=== PATIENT | male | born 1955 | race Caucasian/White ===

== ENCOUNTER 2019-12-01 08:09 | Inpatient (IN) ==
[2019-12-01] MEDS ORDERED: PANTOPRAZOLE 40 MG VIAL IV ONE (08:41)
[2019-12-01] MEDS ORDERED: INSULIN GLARGINE, HUMAN 1 UNIT/0.01 ML SQ ONE ×2 (08:42→09:31)
[2019-12-01] MEDS ORDERED: 0.9 % SODIUM CHLORIDE 500 ML IV ONE ×2 (08:42→12:17)
[2019-12-01] MEDS ORDERED: INSULIN REGULAR, HUMAN 1 UNIT/0.01 ML UNIT SQ ONE (08:42)
[2019-12-01] MEDS ORDERED: PANTOPRAZOLE 80 MG in 0.9 % SODIUM CHLORIDE 100 ML IV SCH (08:45)
--- NOTE | 2019-12-01 08:47 | Emergency Department Note ---
Weakness HPI - General Chief complaint: Weakness Stated complaint: weakness Time Seen by Provider: 12/01/19 08:27 Source: patient, EMS Mode of arrival: EMS Limitations: no limitations - History of Present Illness HPI Narrative: Patient reports generalized weakness, which has been progressive over the last week. Also, he has noticed dark stools the last 2 days which were liquid He does have a history of stomach ulcers treated with cauterization several years ago. 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 His home, mostly with caregivers and family members. History of morbid obesity, history of diabetes. This morning his blood sugar was over 400 in triage. He did not take his a.m. insulin just yet. Denies urinary symptoms, denies flank pain, denies nausea or vomiting. No fevers or chills, but generalized weakness, which has been getting worse the last few days - Related Data Previous Rx's Medication Instructions Recorded Doxycycline Hyclate 100 mg PO BID #20 cap 12/29/17 Fluconazole [Diflucan] 200 mg PO DAILY #14 tab 12/29/17 Methocarbamol [Robaxin] 750 mg PO TIDP PRN #20 tab 12/29/17 Cephalexin [Keflex] 500 mg PO QID #12 cap 12/07/18 HYDROcodone/APAP 5/325MG [[place] 1 tab PO Q4HP PRN #10 tab 12/07/18 5-325Mg] Allergies Allergy/AdvReac Type Severity Reaction Status Date / Time No Known Drug Allergies Allergy Verified 12/07/18 18:40 Review of Systems Constitutional: Reports: weakness, sweats Cardiovascular: Reports: palpitations, dyspnea on exertion. Denies: chest pain Respiratory: Reports: shortness of breath. Denies: cough Gastrointestinal: Reports: diarrhea. Denies: nausea, vomiting, hematemesis Genitourinary: Denies: dysuria Musculoskeletal: Reports: back pain Integumentary: Reports: rash, other (odorous rash underneath his pannus, lower abdomen) Neurological: Reports: weakness. Denies: headache Past Medical History - Past Medical History [facility] Narrative: History of Kkypffe-Qjntd-Smquk. History of diabetes, history of morbid obesity. Status post right BKA Source: nursing notes reviewed Medical history: Reports: DM, hypothyroidism, obesity, peripheral artery disease, other (BPH, Izcuwho-Fxujw-Aefyh, right below-knee amputation) Surgical history ED: Reports: cholecystectomy, orthopedic, other, other (status post BKA right leg) Family history: Reports: non-contributory - Social History smoking status: Never smoker Alcohol use: Reports: None Drug use: Reports: none Physical Exam Limitations: no limitations General appearance: alert, in no apparent distress, malaise Head: atraumatic, normocephalic, normal inspection Eye: Present: normal appearance, PERRL, EOMI. Absent: conjunctival injection ENT: Present: normal exam, normal oropharynx, mucous membranes moist, normal external ear exam Neck: Present: normal inspection, full ROM, trachea midline. Absent: tenderness Chest: Present: normal inspection, symmetric chest wall rise. Absent: tenderness Respiratory: Present: normal lung sounds bilaterally. Absent: respiratory distress, rales/crackles, wheezes Cardiovascular: Present: regular rate, tachycardia, normal heart sounds Abdominal: Present: soft, tenderness, hypoactive bowel sounds. Absent: guarding , rebound Abdominal tenderness: Present: RLQ, mild Rectal: Present: decreased rectal tone, heme (+) stool, black stool. Absent: mass : Present: normal inspection, normal testicular lie. Absent: testicular tenderness, scrotal swelling Extremities: Present: other (atrophy of hand muscles, Charcot foot, left-sided. In prosthetic device. The. Status post BKA on the right leg) Back: Absent: CVA tenderness (R), CVA tenderness (L) Neurological: Present: alert, oriented X3, CN II-XII intact, motor sensory deficit, other (decreased sensation from the waist on down both sides) Psychiatric: Present: normal affect Skin: Present: warm, dry, normal color, rash, other (erythematous rash below his pannus) Course - Reevaluation(s) Reevaluation #1: Patient signed out to Dr. Hill. 9 AM. Initial labs ordered. Physical exam documented. Disposition is pending laboratory evaluation. Vital Signs Temperature 98.0 F 12/01/19 08:13 Pulse Rate 118 H 12/01/19 08:13 Respiratory Rate 16 12/01/19 08:13 Blood Pressure 110/77 12/01/19 08:13 Pulse Oximetry (%) 96 12/01/19 08:13 Temperature 98.0 F 12/01/19 08:13 Pulse Rate 118 H 12/01/19 08:13 Respiratory Rate 16 12/01/19 08:13 Blood Pressure 110/77 12/01/19 08:13 Pulse Oximetry (%) 96 12/01/19 08:13 Weakness - MDM Narrative Medical decision making narrative: GI bleed - Lab Data Lab results reviewed: Yes I reviewed the patient's lab results. Result diagrams: 12/01/19 08:25 12/01/19 08:25 Disposition Pt seen by FUNERAL LIMOUSINE DRIVER/PA only: No Clinical Impression: GI bleed Disposition: Still a Patient Condition: Fair Referrals: Srinivasa Wagner, BUS DRIVER/MONITOR [Primary Care Provider] -
[2019-12-01] MEDS ORDERED: 0.9 % SODIUM CHLORIDE 250 ML IV SCH (09:00)
[2019-12-01] MEDS ORDERED: FLUCONAZOLE 200 MG/100 ML BAG IV SCH (09:00)
[2019-12-01 09:17] LABS: ABG Methemoglobin 0.1 % (0.4-1.5); Total Hemoglobin 10.8 gm/dL (13.5-16.5); VBG Base Excess -6.1 (-2.0-2.0); VBG HCO3 18.4 mmol/L (24.0-28.0); VBG Oxygen Saturation 93.5 % (40.0-70.0); VBG PCO2 33.1 mmHg (41.0-51.0); VBG PH 7.36 U (7.32-7.42); VBG PO2 97 mmHg (25-40); VBG Total CO2 19.5 mmol/L (25.0-29.0)
[2019-12-01 09:25] LABS: Basophils # (Auto) 0.05 K/mcL (0.00-0.30); Basophils % (Auto) 0.3 % (0.0-2.0); Eosinophils # (Auto) 0.03 K/mcL (0.00-0.70); Eosinophils % (Auto) 0.2 % (0.0-7.0); Granulocytes % (Auto) 89.1 % (38.0-78.0); Hematocrit 31.4 % (40.1-51.0); Hemoglobin 10.6 g/dL (13.7-17.5); Lymphocytes # (Auto) 0.68 K/mcL (1.50-4.80); Lymphocytes % (Auto) 4.3 % (15.5-49.0); Mean Corpuscular HGB Conc 33.8 g/dL (31.0-36.0); Mean Platelet Volume 11.5 fL (7.4-10.4); Monocytes # (Auto) 0.97 K/mcL (0.10-0.90); Monocytes % (Auto) 6.1 % (1.0-12.0); Platelet Count 267 K/mcL (140-440); RBC 3.34 M/mcL (4.63-6.08); WBC 15.9 K/mcL (4.50-11.00)
--- NOTE | 2019-12-01 09:37 | Emergency Department Note ---
General Adult HPI - General Chief complaint: Weakness Stated complaint: weakness Time Seen by Provider: 12/01/19 08:27 Source: patient, EMS Mode of arrival: EMS Limitations: no limitations - History of Present Illness HPI Narrative: Patient reports generalized weakness, which has been progressive over the last week. Also, he has noticed dark stools the last 2 days which were liquid He does have a history of stomach ulcers treated with cauterization several years ago. 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 Medication history was assessed for possible NSAIDs, agents that cause pill esophagitis, antiplatelet and anticoagulant medication as well as bismuth and iron, patient is not taking these medications, generally speaking patient is poorly compliant with medications. Patient with onset of symptoms days ago. Assessed the patient for symptoms of orthostatic hypotension, confusion, angina, palpitations, cold clammy extremities, dysphagia, early satiety, involuntary weight loss, jaundice, vomiting, and GERD. Patient did not have history of alcohol use. - Related Data Home Medications Medication Instructions Recorded Confirmed Dulaglutide [Trulicity] 0.75 mg SC WEEKLY 12/01/19 12/01/19 Famotidine [Pepcid] 20 mg PO BID 12/01/19 12/01/19 Gabapentin [Gralise] 600 mg PO TID 12/01/19 12/01/19 HYDROcodone/APAP 5/325MG [[place] 1 tab PO Q4HP PRN 12/01/19 12/01/19 5-325Mg] Insulin Detemir [Levemir] 25 unit SQ QAM 12/01/19 12/01/19 Levothyroxine [Synthroid] 125 mcg PO DAILY 12/01/19 12/01/19 Metoprolol Tartrate [Lopressor] 25 mg PO BID 12/01/19 12/01/19 Miconazole TOPICAL PRN 12/01/19 12/01/19 Ondansetron HCl [Zofran] 4 mg PO TID PRN 12/01/19 12/01/19 Potassium Chloride [Kdur] 20 meq PO BIDCC 12/01/19 12/01/19 Pregabalin [Lyrica] 25 mg PO TID 12/01/19 12/01/19 Saccharomyces Boulardii [Florastor] 250 mg PO BID 12/01/19 12/01/19 Tamsulosin [Flomax] 1 cap PO DAILY 12/01/19 12/01/19 metFORMIN [Glucophage] 1,000 mg PO BIDCC 12/01/19 12/01/19 morphine SULFATE [Morphine Sulfate 30 mg PO TID 12/01/19 12/01/19 ER] prednisoLONE [Millipred] 7.5 mg PO DAILY 12/01/19 12/01/19 traMADol [Ultram] 1 tab PO QID PRN 12/01/19 12/01/19 Allergies Allergy/AdvReac Type Severity Reaction Status Date / Time No Known Drug Allergies Allergy Verified 12/07/18 18:40 Review of Systems All systems ED: reviewed and negative except as stated. Constitutional: Reports: weakness, sweats Cardiovascular: Reports: palpitations, dyspnea on exertion. Denies: chest pain Respiratory: Reports: shortness of breath. Denies: cough Gastrointestinal: Reports: diarrhea. Denies: nausea, vomiting, hematemesis Genitourinary: Denies: dysuria Musculoskeletal: Reports: back pain Integumentary: Reports: rash, other (odorous rash underneath his pannus, lower abdomen) Neurological: Reports: weakness. Denies: headache Past Medical History - Past Medical History [facility] Narrative: All Active Problems Strain of lumbar region (Acute) Skin ulcer of buttock with fat layer exposed (Acute) Candidiasis of other urogenital sites (Acute) Urinary tract infection (Acute) GI bleed (Acute) Medical history: Reports: DM, hypothyroidism, obesity, peripheral artery disease, other (BPH, Vxgrrjh-Gihup-Ruycm, right below-knee amputation) Surgical history ED: Reports: cholecystectomy, orthopedic, other, other (status post BKA right leg) - Social History smoking status: Never smoker Alcohol use: Reports: None Drug use: Reports: none Physical Exam General: Alert, interactive, appropriate Head: Atraumatic, normocephalic Eyes: Extraocular movements intact, PERRLA Neck: Trachea midline, full range of motion Chest: Symmetrical chest wall rise, clear to auscultation bilateral without wheezes rales crackles or rubs Cardiovascular: Patient with excellent perfusion to the extremities, tachycardic with rate at the 110's without M/R/G; patient assessed for evidence of hypotension patient is not in shock Abdomen: Nontender nondistended normoactive bowel sounds no masses no hepatosplenomegaly no rebound no guarding, patient assessed specifically for peritoneal findings, fungus under the pannus extensive Extremities: Full range of motion joints, warm well perfused Neuro: Alert, oriented x3, cranial nerves II through XII grossly intact, normal gait Psychiatric: Normal affect normal mood Limitations: no limitations General appearance: alert, in no apparent distress, malaise Course Vital Signs Temperature 98.0 F 12/01/19 08:13 Pulse Rate 118 H 12/01/19 08:13 Respiratory Rate 16 12/01/19 08:13 Blood Pressure 110/77 12/01/19 08:13 Pulse Oximetry (%) 96 12/01/19 08:13 Temperature 98.0 F 12/01/19 08:13 Pulse Rate 106 H 12/01/19 15:44 Respiratory Rate 20 12/01/19 17:01 Blood Pressure 103/52 12/01/19 17:01 Pulse Oximetry (%) 95 12/01/19 16:01 Medical Decision Making - MDM Narrative Medical decision making narrative: Initial focus of the resuscitation was to determine hemodynamic stability. Risk stratifying the patient into the category of acutely unstable GI bleed, stable for admission and endoscopy, and stable for discharge with close follow-up. IV access was obtained, fluid resuscitation begun. Patient given Protonix 80 mg IV and started on Protonix drip by the previous provider Dr. Romero. Considered antibiotics and octreotide in the case of variceal bleeding, consider reversal of anticoagulation in the case of patients on anticoagulants/antiplatelets, also considering transfusion for hemoglobin less than or equal to 7 or less than or equal to 9 in high risk patients; caution applied to avoid over transfusion >10 in the case of variceal bleeding. Differential diagnosis considered includes gastric/duodenal ulcers, erosive gastritis/duodenitis, severe erosive esophagitis, variceal bleed, angiodysplasia, Farzana-Lr tear, oncologic etiologies, aortoenteric fistula. During evaluation for the work-up it is noted that we were able to get control of his blood sugar with insulin, also given 2 L of fluids and continuous infusion of fluids, patient with UA suggesting urinary tract infection, patient with elevated lactate, elevated white blood cell count, and tachycardia lehman ggestive of sepsis with a urinary source. Patient is treated with Rocephin and I discussed the case with Dr. Tucker and the consensus medical opinion is to admit the patient for ongoing care. - Lab Data Result diagrams: 12/01/19 08:25 12/01/19 08:25 Lab Results 12/01/19 12/01/19 12/01/19 Range/Units 08:25 08:25 08:25 WBC 15.9 H (4.50-11.00) K/mcL RBC 3.34 L (4.63-6.08) M/mcL Hgb 10.6 L (13.7-17.5) g/dL Hct 31.4 L (40.1-51.0) % MCV 94.0 (80.0-100.0) fL MCH 31.7 (26.0-34.0) pg MCHC 33.8 (31.0-36.0) g/dL RDW 15.0 H (11.5-14.5) % Plt Count 267 (140-440) K/mcL MPV 11.5 H (7.4-10.4) fL Gran % 89.1 H (38.0-78.0) % Lymph % (Auto) 4.3 L (15.5-49.0) % [place] % (Auto) 6.1 (1.0-12.0) % Eos % (Auto) 0.2 (0.0-7.0) % Baso % (Auto) 0.3 (0.0-2.0) % Gran # 14.19 H (1.80-8.00) K/mcL Lymph # (Auto) 0.68 L (1.50-4.80) K/mcL [place] # (Auto) 0.97 H (0.10-0.90) K/mcL Eos # (Auto) 0.03 (0.00-0.70) K/mcL Baso # (Auto) 0.05 (0.00-0.30) K/mcL ABG Methemoglobin (0.4-1.5) % VBG pH (7.32-7.42) U VBG pCO2 (41.0-51.0) mmHg VBG pO2 (25-40) mmHg VBG HCO3 (24.0-28.0) mmol/L VBG Total CO2 (25.0-29.0) mmol/L VBG O2 Saturation (40.0-70.0) % VBG Base Excess (-2.0-2.0) VBG Lactic Acid (0.5-2.0) mmol/L Carboxyhemoglobin (0.0-1.5) % THgb Total Hemoglobin (13.5-16.5) gm/dL O2 Delivery Level Sodium 130 L (133-145) mmol/L Potassium 4.7 (3.3-5.1) mmol/L Chloride 91 L (96-108) mmol/L Carbon Dioxide 17 L (22-30) mmol/L Anion Gap 22.0 H (8-16) BUN 34 H (8-23) mg/dl Creatinine 0.7 (0.7-1.2) mg/dl GFR Calculation 100 Glucose 442 H (70-105) mg/dL Osmolality 305 H (280-300) mOSM/kg Calcium 8.4 L (8.6-10.4) mg/dl Total Bilirubin 0.9 (0.0-1.0) mg/dL AST 14 (0-37) U/l ALT 23 (0-40) U/l Alkaline Phosphatase 68 (39-117) U/L C-Reactive Protein 6.4 H (0.0-0.8) mg/dl Total Protein 5.9 (5.9-8.4) gm/dL Albumin 2.9 L (3.2-5.2) gm/dL Globulin 3.0 (2.2-3.7) gm/dL Albumin/Globulin Ratio 1.0 (1.0-2.3) Beta-Hydroxybutyrate (< 0.27) mmol/L Urine Color Urine Appearance Urine pH (5.0-9.0) Ur Specific [place] (1.000-1.035) Urine Protein (NEG) mg/dL Urine Glucose (UA) (NEG) mg/dL Urine Ketones (NEG) mg/dL Urine Occult Blood (<0.03) mg/dL Urine Nitrate (NEG) Urine Bilirubin (NEG) mg/dL Urine Urobilinogen (NEG) mg/dL Ur Leukocyte Esterase (NEG) /uL Urine RBC (0-1) /hpf Urine WBC (0-4) /hpf Ur Squamous Epith Cells (0-4) /hpf Urine Bacteria (0) /hpf Urine Mucus (0) /hpf Ur Culture Indicated? 12/01/19 12/01/19 12/01/19 Range/Units 08:25 08:25 08:40 WBC (4.50-11.00) K/mcL RBC (4.63-6.08) M/mcL Hgb (13.7-17.5) g/dL Hct (40.1-51.0) % MCV (80.0-100.0) fL MCH (26.0-34.0) pg MCHC (31.0-36.0) g/dL RDW (11.5-14.5) % Plt Count (140-440) K/mcL MPV (7.4-10.4) fL Gran % (38.0-78.0) % Lymph % (Auto) (15.5-49.0) % [place] % (Auto) (1.0-12.0) % Eos % (Auto) (0.0-7.0) % Baso % (Auto) (0.0-2.0) % Gran # (1.80-8.00) K/mcL Lymph # (Auto) (1.50-4.80) K/mcL [place] # (Auto) (0.10-0.90) K/mcL Eos # (Auto) (0.00-0.70) K/mcL Baso # (Auto) (0.00-0.30) K/mcL ABG Methemoglobin 0.1 L (0.4-1.5) % VBG pH 7.36 (7.32-7.42) U VBG pCO2 33.1 L (41.0-51.0) mmHg VBG pO2 97 H (25-40) mmHg VBG HCO3 18.4 L (24.0-28.0) mmol/L VBG Total CO2 19.5 L (25.0-29.0) mmol/L VBG O2 Saturation 93.5 H (40.0-70.0) % VBG Base Excess -6.1 L (-2.0-2.0) VBG Lactic Acid (0.5-2.0) mmol/L Carboxyhemoglobin 4.1 H (0.0-1.5) % THgb Total Hemoglobin 10.8 L (13.5-16.5) gm/dL O2 Delivery Level Not Reportable Sodium (133-145) mmol/L Potassium (3.3-5.1) mmol/L Chloride (96-108) mmol/L Carbon Dioxide (22-30) mmol/L Anion Gap (8-16) BUN (8-23) mg/dl Creatinine (0.7-1.2) mg/dl GFR Calculation Glucose (70-105) mg/dL Osmolality (280-300) mOSM/kg Calcium (8.6-10.4) mg/dl Total Bilirubin (0.0-1.0) mg/dL AST (0-37) U/l ALT (0-40) U/l Alkaline Phosphatase (39-117) U/L C-Reactive Protein (0.0-0.8) mg/dl Total Protein (5.9-8.4) gm/dL Albumin (3.2-5.2) gm/dL Globulin (2.2-3.7) gm/dL Albumin/Globulin Ratio (1.0-2.3) Beta-Hydroxybutyrate 3.43 H (< 0.27) mmol/L Urine Color Straw Urine Appearance Clear Urine pH 5.0 (5.0-9.0) Ur Specific [place] 1.025 (1.000-1.035) Urine Protein Neg (NEG) mg/dL Urine Glucose (UA) >=500 A (NEG) mg/dL Urine Ketones 80 A (NEG) mg/dL Urine Occult Blood 0.03 A (<0.03) mg/dL Urine Nitrate Neg (NEG) Urine Bilirubin Neg (NEG) mg/dL Urine Urobilinogen Neg (NEG) mg/dL Ur Leukocyte Esterase 25 A (NEG) /uL Urine RBC 2 H (0-1) /hpf Urine WBC 12 H (0-4) /hpf Ur Squamous Epith Cells 0 (0-4) /hpf Urine Bacteria 0 (0) /hpf Urine Mucus Few (0) /hpf Ur Culture Indicated? Yes 12/01/19 Range/Units 12:48 WBC (4.50-11.00) K/mcL RBC (4.63-6.08) M/mcL Hgb (13.7-17.5) g/dL Hct (40.1-51.0) % MCV (80.0-100.0) fL MCH (26.0-34.0) pg MCHC (31.0-36.0) g/dL RDW (11.5-14.5) % Plt Count (140-440) K/mcL MPV (7.4-10.4) fL Gran % (38.0-78.0) % Lymph % (Auto) (15.5-49.0) % [place] % (Auto) (1.0-12.0) % Eos % (Auto) (0.0-7.0) % Baso % (Auto) (0.0-2.0) % Gran # (1.80-8.00) K/mcL Lymph # (Auto) (1.50-4.80) K/mcL [place] # (Auto) (0.10-0.90) K/mcL Eos # (Auto) (0.00-0.70) K/mcL Baso # (Auto) (0.00-0.30) K/mcL ABG Methemoglobin (0.4-1.5) % VBG pH (7.32-7.42) U VBG pCO2 (41.0-51.0) mmHg VBG pO2 (25-40) mmHg VBG HCO3 (24.0-28.0) mmol/L VBG Total CO2 (25.0-29.0) mmol/L VBG O2 Saturation (40.0-70.0) % VBG Base Excess (-2.0-2.0) VBG Lactic Acid 2.1 H (0.5-2.0) mmol/L Carboxyhemoglobin (0.0-1.5) % THgb Total Hemoglobin (13.5-16.5) gm/dL O2 Delivery Level Sodium (133-145) mmol/L Potassium (3.3-5.1) mmol/L Chloride (96-108) mmol/L Carbon Dioxide (22-30) mmol/L Anion Gap (8-16) BUN (8-23) mg/dl Creatinine (0.7-1.2) mg/dl GFR Calculation Glucose (70-105) mg/dL Osmolality (280-300) mOSM/kg Calcium (8.6-10.4) mg/dl Total Bilirubin (0.0-1.0) mg/dL AST (0-37) U/l ALT (0-40) U/l Alkaline Phosphatase (39-117) U/L C-Reactive Protein (0.0-0.8) mg/dl Total Protein (5.9-8.4) gm/dL Albumin (3.2-5.2) gm/dL Globulin (2.2-3.7) gm/dL Albumin/Globulin Ratio (1.0-2.3) Beta-Hydroxybutyrate (< 0.27) mmol/L Urine Color Urine Appearance Urine pH (5.0-9.0) Ur Specific [place] (1.000-1.035) Urine Protein (NEG) mg/dL Urine Glucose (UA) (NEG) mg/dL Urine Ketones (NEG) mg/dL Urine Occult Blood (<0.03) mg/dL Urine Nitrate (NEG) Urine Bilirubin (NEG) mg/dL Urine Urobilinogen (NEG) mg/dL Ur Leukocyte Esterase (NEG) /uL Urine RBC (0-1) /hpf Urine WBC (0-4) /hpf Ur Squamous Epith Cells (0-4) /hpf Urine Bacteria (0) /hpf Urine Mucus (0) /hpf Ur Culture Indicated? Disposition Pt seen by CONFERENCE SERVICES MANAGER/PA only: No Clinical Impression: Sepsis GI bleed Qualifiers: GI bleed type/associated pathology: unspecified gastrointestinal hemorrhage type Qualified Code(s): K92.2 - Gastrointestinal hemorrhage, unspecified Disposition: Xfer As Inpt ([facility]) Condition: Serious Referrals: Srinivasa Wagner ARNP [Primary Care Provider] -
[2019-12-01 09:45] LABS: C-Reactive Protein 6.4 mg/dl (0.0-0.8)
[2019-12-01 09:46] LABS: ALT/SGPT 23 U/l (0-40); AST/SGOT 14 U/l (0-37); Albumin 2.9 gm/dL (3.2-5.2); Alkaline Phosphatase 68 U/L (39-117); Bilirubin,Total 0.9 mg/dL (0.0-1.0); Blood Urea Nitrogen 34 mg/dl (8-23); Calcium 8.4 mg/dl (8.6-10.4); Carbon Dioxide 17 mmol/L (22-30); Chloride 91 mmol/L (96-108); Glomerular Filtration Rate 100; Glucose 442 mg/dL (70-105)
[2019-12-01 10:10] LABS: Appearance,Urine CLEAR; Bacteria,Urine 0 /hpf (0); Bilirubin,Urine NEG (NEG); Color,Urine STRAW; Culture Indicated,Urine YES; Glucose,Urine (UA) >=500 mg/dL (NEG); Ketones,Urine 80 mg/dL (NEG); Leukocyte Esterase,Urine 25 /uL (NEG); Mucus,Urine FEW /hpf (0); Nitrate,Urine NEG (NEG); Protein,Urine NEG (NEG); Specific Gravity,Urine 1.025 (1.000-1.035); Urine Blood 0.03 mg/dL (<0.03); Urine RBC 2 /hpf (0-1); Urine Squamous Epithelial Cell 0 /hpf (0-4); Urine WBC 12 /hpf (0-4); Urobilinogen,Urine NEG (NEG)
--- NOTE | 2019-12-01 12:52 | XRay Report ---
CLINICAL INFORMATION: Chest pain and dyspnea COMPARISON: 11/13/2009 TECHNIQUE: PA and Lateral views FINDINGS: The heart size, mediastinum and pulmonary vessels are unremarkable. The lungs are clear. There are no effusions. The bones and soft tissues are within normal limits. IMPRESSION: Normal chest. Interpreted and Authenticated by: Jl aLzo 12/01/19
[2019-12-01] MEDS ORDERED: 0.9 % SODIUM CHLORIDE 1,000 ML IV ONE (13:29)
[2019-12-01] MEDS ORDERED: cefTRIAXone 1 GM VIAL IV ONE (13:29)
[2019-12-01] MEDS ORDERED: 0.9 % SODIUM CHLORIDE 1,000 ML IV SCH (16:30)
[2019-12-01] MEDS ORDERED: GABAPENTIN 300 MG CAPSULE PO ONE (16:32)
[2019-12-01] MEDS ORDERED: morphine 30 MG TAB.SR.12H PO ONE (16:32)
[2019-12-01] MEDS ORDERED: INSULIN LISPRO 1 UNIT/0.01 ML UNIT SQ ONE (17:00)
--- NOTE | 2019-12-01 17:28 | Internal Med History&Physical ---
Medical - H&P: HPI Patient information: Note initiated : 12/01/19 at 5:26 pm Service Date, if different from initiated Date: [] Patient: Álvaro Fernandez a 64 y/o M admitted on for weakness. Chief Complaint: [] History of present illness: Mr. Fernandez is a 64 year old M That about a week ago he developed some weakness some nausea did vomit which was brownish in color. Eventually started to feel a bit better and then few days ago he started getting sick to his stomach when he would eat. He reports an episode of diarrhea once each day for the past couple days described as part black and tarry. Denies taking any NSAIDs including aspirin. Currently administers insulin early this morning. Also has little bit of discomfort upon urination. In the ED he was found to have a leukocytosis. He systolic blood pressure in the 90s this morning. Lactate was 2.1. Urinalysis showed ketones leukocyte esterase and WBCs. Chest x-ray unremarkable. BUN elevated but creatinine okay. Dr. Art was contacted in the ED regarding potential upper GI bleed. Patient does have a history of peptic ulcer disease as well as a history of a dieulafoy lesion. Glucose was over 400 on admission. Venous blood gas pH 7.36. Ketones in the urine. Next as needed Pepcid but does not take regularly Review of Systems: Pertinent positives as above. Denies headache/fever/chills/chest or abdominal pain/cough/dyspnea. Many 10 point review of system reviewed negative Medical - H&P: PMH Medical history: Past medical history: Ductal sleep apnea on BiPAP machine at night Morbid obesity Diabetes Hypothyroidism Right BKA as complication diabetes BPH Hypertension History of GERD/peptic ulcer disease/Dieulafoy lesion Past surgical history: Cholecystectomy and right BKA Family: Mother and father both had heart disease Social history: Patient denies tobacco or alcohol Has been wheelchair-bound essentially since 2004 Medical - H&P: Meds Home Medications Medication Instructions Recorded Confirmed Type Dulaglutide [Trulicity] 0.75 mg SC WEEKLY 12/01/19 12/01/19 History Famotidine [Pepcid] 20 mg PO BID 12/01/19 12/01/19 History Gabapentin [Gralise] 600 mg PO TID 12/01/19 12/01/19 History HYDROcodone/APAP 5/325MG [[place] 1 tab PO Q4HP PRN 12/01/19 12/01/19 History 5-325Mg] Insulin Detemir [Levemir] 25 unit SQ QAM 12/01/19 12/01/19 History Levothyroxine [Synthroid] 125 mcg PO DAILY 12/01/19 12/01/19 History Metoprolol Tartrate [Lopressor] 25 mg PO BID 12/01/19 12/01/19 History Miconazole TOPICAL PRN 12/01/19 12/01/19 History Ondansetron HCl [Zofran] 4 mg PO TID PRN 12/01/19 12/01/19 History Potassium Chloride [Kdur] 20 meq PO BIDCC 12/01/19 12/01/19 History Pregabalin [Lyrica] 25 mg PO TID 12/01/19 12/01/19 History Saccharomyces Boulardii [Florastor] 250 mg PO BID 12/01/19 12/01/19 History Tamsulosin [Flomax] 1 cap PO DAILY 12/01/19 12/01/19 History metFORMIN [Glucophage] 1,000 mg PO BIDCC 12/01/19 12/01/19 History morphine SULFATE [Morphine Sulfate 30 mg PO TID 12/01/19 12/01/19 History ER] prednisoLONE [Millipred] 7.5 mg PO DAILY 12/01/19 12/01/19 History traMADol [Ultram] 1 tab PO QID PRN 12/01/19 12/01/19 History Allergies Allergy/AdvReac Type Severity Reaction Status Date / Time No Known Drug Allergies Allergy Verified 12/07/18 18:40 Medical - H&P: Exam - Constitutional Vitals: Temp Pulse Resp BP Pulse Ox 98.0 F 106 H 20 103/52 95 12/01/19 08:13 12/01/19 15:44 12/01/19 17:01 12/01/19 17:01 12/01/19 16:01 Exam: General: Alert, Awake, No acute Distress, B's Eyes/N/T: EOMI, PERRL, Head/Neck: neck supple, normocephalic atraumatic CV: Mildly tacky but regular, No murmurs, normal s1/s2 Pulm: Clear b/l, no wheezing/rhonchi/rales Abd: soft, nontender, +BS x4, Ext: no clubbing/cyanosis, right BKA, 1+ LLE edema Neuro: Alert, moves all extremities, CN 2-12 grossly intact, decreased sensations LLE chronic Skin: warm/dry Medical - H&P: Reslt - Labs CBC & Chem 7: 12/01/19 08:25 12/01/19 08:25 Labs: Short CBC 12/01/19 Range/Units 08:25 WBC 15.9 H (4.50-11.00) K/mcL Hgb 10.6 L (13.7-17.5) g/dL Hct 31.4 L (40.1-51.0) % Plt Count 267 (140-440) K/mcL BMP 12/01/19 08:25 Sodium 130 L Potassium 4.7 Chloride 91 L Carbon Dioxide 17 L BUN 34 H Creatinine 0.7 Glucose 442 H Calcium 8.4 L Liver Function 12/01/19 Range/Units 08:25 Total Bilirubin 0.9 (0.0-1.0) mg/dL AST 14 (0-37) U/l ALT 23 (0-40) U/l Alkaline Phosphatase 68 (39-117) U/L Albumin 2.9 L (3.2-5.2) gm/dL Urine 12/01/19 Range/Units 08:40 Urine Color Straw Urine Appearance Clear Urine pH 5.0 (5.0-9.0) Ur Specific [place] 1.025 (1.000-1.035) Urine Protein Neg (NEG) mg/dL Urine Glucose (UA) >=500 A (NEG) mg/dL - ABG Interpretation ABG results: 12/01/19 08:25 ABG Methemoglobin 0.1 L VBG pH 7.36 VBG pCO2 33.1 L VBG pO2 97 H VBG HCO3 18.4 L VBG Total CO2 19.5 L VBG O2 Saturation 93.5 H VBG Base Excess -6.1 L Medical - H&P: A/P - Narrative A/P Narrative: A: *UTI: *Sepsis w/hypotension resolved with IVF: *Diabetes with hyperglycemia with HHS and likely component of mild DKA -DM complication of PVD and neuropathy *Met acidosis AG; 2/2 above *Pseudohyponatremia *GI bleed, upper likely, slow bleed: *Weakness/deconditioning/debility *Morbid obesity: *KARO on bipap: *Gstcwal-Axxwz-Qwqkw syndrome w/ chronic pain: - *Hypothyroidism: *HTN: * P: -Rocephin, pending UC/BC -IVF's -basal and SSI -Dr. Art consulted -ppi gtt -home bipap -cont home pain meds -cont home Lopressor -Clarify why on prednisolone daily - -pt/ot -ppx: lovenox CPR ok, but no Intubation
[2019-12-01] MEDS ORDERED: POTASSIUM CHLORIDE 20 MEQ TABLET PO PRN ×2 (19:40)
[2019-12-01] MEDS ORDERED: DEXTROSE 31 GM ORAL.SUSP PO PRN (19:40)
[2019-12-01] MEDS ORDERED: cefTRIAXone 1 GM in DEXTROSE 5% IN WATER 50 ML IV ONE (19:40)
[2019-12-01] MEDS ORDERED: ACETAMINOPHEN 325 MG TABLET PO PRN (19:40)
[2019-12-01] MEDS ORDERED: PROCHLORPERAZINE 10 MG/2 ML VIAL IV PRN (19:40)
[2019-12-01] MEDS ORDERED: DEXTROSE 50% 50 ML VIAL IV PRN (19:40)
[2019-12-01] MEDS ORDERED: IPRATROPIUM/ALBUTEROL 3 ML AMPUL.NEB NEB PRN (19:40)
[2019-12-01] MEDS ORDERED: HYDROcodone/APAP 5/325MG TABLET PO PRN (19:40)
[2019-12-01] MEDS ORDERED: ONDANSETRON 4 MG/2 ML VIAL IV PRN (19:40)
[2019-12-01] MEDS ORDERED: SENNOSIDES 1 TABLET PO PRN (19:40)
[2019-12-01] MEDS ORDERED: METOCLOPRAMIDE 10 MG/2 ML VIAL IV PRN (19:40)
[2019-12-01] MEDS ORDERED: POLYETHYLENE GLYCOL 3350 17 GM PACKET PO PRN (19:40)
[2019-12-01] MEDS ORDERED: MAGNESIUM SULFATE 2 GM/50 ML BAG IV PRN (19:40)
[2019-12-01] MEDS ORDERED: POTASSIUM CHLORIDE 40 MEQ in DEXTROSE 5% IN WATER 500 ML IV PRN (19:40)
[2019-12-01] MEDS ORDERED: traMADol 50 MG TABLET PO PRN (19:40)
[2019-12-01] MEDS: PANTOPRAZOLE 80 MG in 0.9 % SODIUM CHLORIDE 100 ML IV SCH (20:22)
[2019-12-01] MEDS: cefTRIAXone 2 GM in DEXTROSE 5% IN WATER 50 ML IV SCH (20:27)
[2019-12-01] MEDS: 0.9 % SODIUM CHLORIDE 1,000 ML IV SCH (20:46)
[2019-12-01] MEDS ORDERED: cefTRIAXone 1 GM VIAL ONE (20:46)
[2019-12-01] MEDS: INSULIN LISPRO 1 UNIT/0.01 ML UNIT SQ SCH (20:59)
[2019-12-01] MEDS ORDERED: SACCHAROMYCES BOULARDII 250 MG PO SCH (21:00)
[2019-12-01] MEDS: METOPROLOL TARTRATE 25 MG TABLET PO SCH (21:08)
[2019-12-01] MEDS: GABAPENTIN 300 MG CAPSULE PO SCH (21:08)
[2019-12-01] MEDS: morphine 30 MG TAB.SR.12H PO SCH (21:08)
[2019-12-01] MEDS: NYSTATIN CRM 1 DOSE TUBE TOPICAL SCH (21:09)
[2019-12-01] MEDS: PREGABALIN 25 MG CAPSULE PO SCH (21:09)
[2019-12-01] MEDS: 0.9 % SODIUM CHLORIDE 10 ML SYRINGE IV SCH (21:10)
[2019-12-02] MEDS: INSULIN LISPRO 1 UNIT/0.01 ML UNIT SQ SCH ×6 (00:15→22:45)
[2019-12-02] MEDS: PANTOPRAZOLE 80 MG in 0.9 % SODIUM CHLORIDE 100 ML IV SCH ×2 (01:04→07:20)
[2019-12-02] MEDS: 0.9 % SODIUM CHLORIDE 1,000 ML IV SCH ×2 (02:48→08:06)
[2019-12-02] MEDS: 0.9 % SODIUM CHLORIDE 10 ML SYRINGE IV SCH ×3 (05:16→22:50)
[2019-12-02 06:39] LABS: Basophils # (Auto) 0.03 K/mcL (0.00-0.30); Basophils % (Auto) 0.3 % (0.0-2.0); Eosinophils # (Auto) 0.11 K/mcL (0.00-0.70); Eosinophils % (Auto) 1.3 % (0.0-7.0); Hematocrit 22.3 % (40.1-51.0); Hemoglobin 7.6 g/dL (13.7-17.5); Lymphocytes # (Auto) 1.52 K/mcL (1.50-4.80); Lymphocytes % (Auto) 17.7 % (15.5-49.0); Mean Cell Volume 93.3 fL (80.0-100.0); Mean Corpuscular HGB Conc 34.1 g/dL (31.0-36.0); Monocytes # (Auto) 0.92 K/mcL (0.10-0.90); Monocytes % (Auto) 10.7 % (1.0-12.0); Platelet Count 218 K/mcL (140-440); RBC 2.39 M/mcL (4.63-6.08); Red Cell Distribution Width 15.4 % (11.5-14.5); WBC 8.6 K/mcL (4.50-11.00)
[2019-12-02 06:50] LABS: ALT/SGPT 16 U/l (0-40); AST/SGOT 11 U/l (0-37); Albumin 2.2 gm/dL (3.2-5.2); Alkaline Phosphatase 46 U/L (39-117); Bilirubin,Direct < 0.2 mg/dL (0.0-0.3); Bilirubin,Total 0.4 mg/dL (0.0-1.0); Calcium 7.2 mg/dl (8.6-10.4); Chloride 102 mmol/L (96-108); Glomerular Filtration Rate 107; Glucose 237 mg/dL (70-105); Lactate Dehydrogenase 147 U/L (94-250); Triglycerides 102 mg/dl (<150); Uric Acid 5.1 mg/dL (2.5-8.0)
[2019-12-02 06:59] LABS: Albumin/Globulin Ratio 0.9 (1.0-2.3); Blood Urea Nitrogen 19 mg/dl (8-23); Carbon Dioxide 22 mmol/L (22-30); Globulin 2.4 gm/dL (2.2-3.7); Phosphorous 2.3 mg/dL (2.7-4.5)
--- NOTE | 2019-12-02 07:52 | Internal Med Progress Note ---
Medical - PN: Subj Patient information: Note initiated : 12/02/19 at 7:46 am Service Date, if different from initiated Date: [] Patient: Álvaro Fernandez a 64 y/o M admitted on 12/01/19 for weakness. Chief Complaint: [] Interval history: Mr. Fernandez is a 64 year old M That about a week ago he developed some weakness some nausea did vomit which was brownish in color. Eventually started to feel a bit better and then few days ago he started getting sick to his stomach when he would eat. He reports an episode of diarrhea once each day for the past couple days described as part black and tarry. Denies taking any NSAIDs including aspirin. Currently administers insulin early this morning. Also has little bit of discomfort upon urination. In the ED he was found to have a leukocytosis. He systolic blood pressure in the 90s this morning. Lactate was 2.1. Urinalysis showed ketones leukocyte esterase and WBCs. Chest x-ray unremarkable. BUN elevated but creatinine okay. Dr. Art was contacted in the ED regarding potential upper GI bleed. Patient does have a history of peptic ulcer disease as well as a history of a dieulafoy lesion. Glucose was over 400 on admission. Venous blood gas pH 7.36. Ketones in the urine. Next as needed Pepcid but does not take regularly 12/01 No overnight events or new complaints. Blood pressure stable. Good oxygenation. Hemoglobin dropped, No bowel movements since admission. Feeling better. Review of Systems: denies headache/fever/chills/nausea/vomiting/chest or abdominal pain/cough/dyspnea/diarrhea. Otherwise see above. - Constitutional Vitals: Vital Signs Temp Pulse Resp BP Pulse Ox 98.1 F 92 H 12 96/46 96 12/02/19 04:01 12/02/19 03:01 12/02/19 05:00 12/02/19 05:00 12/02/19 05:00 Period Temp Pulse Resp BP Sys/Orozco Pulse Ox Last 24 Hr 98.0 F-98.8 F 88-118 8-39 82-163/41-137 89-99 Intake and Output 12/01/19 12/02/19 12/02/19 21:59 05:59 13:59 Intake Total 992 1390 100 Output Total 250 227 Balance 742 1163 100 Weight 152.407 kg Intake & Output: Intake & Output 12/01/19 12/02/19 12/02/19 21:59 05:59 13:59 Intake Total 992 1390 100 Output Total 250 227 Balance 742 1163 100 Weight 152.407 kg Intake: IV 992 1150 100 Sodium Chloride 0.9% 1,000 ml @ 992 1000 150 mls/hr IV .Q6H40M [facility] Rx#: [id number] Protonix 80 mg In Sodium 100 100 Chloride 0.9% 100 ml @ 8 MG/HR 10 mls/hr IV Q10H [facility] Rx#: [id number] Rocephin 1 gm In Dextrose 5% in 50 Water 50 ml @ 100 mls/hr IV ONCE ONE Rx#:[id number] Oral 240 Output: Void Amount 250 225 # of times incontinent of urine 2 Other: Urine Appearance Clear Clear Urine Color Bright Yellow Bright Yellow Exam: General: Alert, Awake, No acute Distress, Obese Eyes/N/T: EOMI, Head/Neck: neck supple, CV: Mildly tacky but regular, no murmur Pulm: Clear b/l, no wheezing/rhonchi/rales Abd: soft, nontender, +BS x4, Ext: no clubbing/cyanosis, right BKA, 1-2+ LLE edema Neuro: Alert, moves all extremities, decreased sensations LLE chronic Skin: warm/dry Medical - PN: Obj Da - Labs CBC & Chem 7: 12/02/19 05:15 12/02/19 05:15 Labs: Abnormal Lab Results 12/02/19 12/02/19 12/01/19 05:15 05:15 12:48 WBC RBC 2.39 L Hgb 7.6 L Hct 22.3 L RDW 15.4 H MPV 11.0 H Gran % Lymph % (Auto) Gran # Lymph # (Auto) [place] # (Auto) 0.92 H ABG Methemoglobin VBG pCO2 VBG pO2 VBG HCO3 VBG Total CO2 VBG O2 Saturation VBG Base Excess VBG Lactic Acid 2.1 H Carboxyhemoglobin Total Hemoglobin Sodium Chloride Carbon Dioxide Anion Gap BUN Creatinine 0.6 L Glucose 237 H Osmolality Calcium 7.2 L Phosphorus 2.3 L C-Reactive Protein Total Protein 4.6 L Albumin 2.2 L Albumin/Globulin Ratio 0.9 L Beta-Hydroxybutyrate TSH Urine Glucose (UA) Urine Ketones Urine Occult Blood Ur Leukocyte Esterase Urine RBC Urine WBC 12/01/19 12/01/19 12/01/19 08:40 08:25 08:25 WBC RBC Hgb Hct RDW MPV Gran % Lymph % (Auto) Gran # Lymph # (Auto) [place] # (Auto) ABG Methemoglobin VBG pCO2 VBG pO2 VBG HCO3 VBG Total CO2 VBG O2 Saturation VBG Base Excess VBG Lactic Acid Carboxyhemoglobin Total Hemoglobin Sodium Chloride Carbon Dioxide Anion Gap BUN Creatinine Glucose Osmolality Calcium Phosphorus C-Reactive Protein Total Protein Albumin Albumin/Globulin Ratio Beta-Hydroxybutyrate 3.43 H TSH 0.25 L Urine Glucose (UA) >=500 A Urine Ketones 80 A Urine Occult Blood 0.03 A Ur Leukocyte Esterase 25 A Urine RBC 2 H Urine WBC 12 H 12/01/19 12/01/19 12/01/19 08:25 08:25 08:25 WBC RBC Hgb Hct RDW MPV Gran % Lymph % (Auto) Gran # Lymph # (Auto) [place] # (Auto) ABG Methemoglobin 0.1 L VBG pCO2 33.1 L VBG pO2 97 H VBG HCO3 18.4 L VBG Total CO2 19.5 L VBG O2 Saturation 93.5 H VBG Base Excess -6.1 L VBG Lactic Acid Carboxyhemoglobin 4.1 H Total Hemoglobin 10.8 L Sodium 130 L Chloride 91 L Carbon Dioxide 17 L Anion Gap 22.0 H BUN 34 H Creatinine Glucose 442 H Osmolality 305 H Calcium 8.4 L Phosphorus C-Reactive Protein 6.4 H Total Protein Albumin 2.9 L Albumin/Globulin Ratio Beta-Hydroxybutyrate TSH Urine Glucose (UA) Urine Ketones Urine Occult Blood Ur Leukocyte Esterase Urine RBC Urine WBC 12/01/19 08:25 WBC 15.9 H RBC 3.34 L Hgb 10.6 L Hct 31.4 L RDW 15.0 H MPV 11.5 H Gran % 89.1 H Lymph % (Auto) 4.3 L Gran # 14.19 H Lymph # (Auto) 0.68 L [place] # (Auto) 0.97 H ABG Methemoglobin VBG pCO2 VBG pO2 VBG HCO3 VBG Total CO2 VBG O2 Saturation VBG Base Excess VBG Lactic Acid Carboxyhemoglobin Total Hemoglobin Sodium Chloride Carbon Dioxide Anion Gap BUN Creatinine Glucose Osmolality Calcium Phosphorus C-Reactive Protein Total Protein Albumin Albumin/Globulin Ratio Beta-Hydroxybutyrate TSH Urine Glucose (UA) Urine Ketones Urine Occult Blood Ur Leukocyte Esterase Urine RBC Urine WBC Meds: Medications Acetaminophen (Tylenol) 650 mg PO Q6HP PRN PRN Reason: PAIN/FEVER > 101 Hydrocodone Bitart/Acetaminophen ([place] 5/325mg) 1 tab PO Q4HP PRN; Protocol PRN Reason: Pain Albuterol/Ipratropium (Duoneb) 3 ml NEB Q4HP PRN PRN Reason: Shortness Of Breath Dextrose (Dextrose 50%) 0 ml IV UD PRN PRN Reason: Hypoglycemia Diagnostic Test (Pha) (Accu-Chek) 1 each FS Q4 [facility] Last Admin: 12/02/19 04:30 Dose: 1 each Documented by: Enoxaparin Sodium (Lovenox) 40 mg SQ DAILY [place] Gabapentin (Neurontin) 600 mg PO TID [facility] Last Admin: 12/01/19 21:08 Dose: 600 mg Documented by: Glucose (Insta-Glucose) 15 gm PO PRN PRN PRN Reason: Hypoglycemia Pantoprazole Sodium 80 mg/ (Sodium Chloride) 100 mls @ 10 mls/hr IV Q10H [facility] Last Admin: 12/02/19 07:20 Dose: 8 mg/hr, 10 mls/hr Documented by: Potassium Chloride 40 meq/ (Dextrose) 520 mls @ 130 mls/hr IV UD PRN PRN Reason: Potassium < 3 Magnesium Sulfate (Magnesium Sulfate) 2 gm in 50 mls @ 50 mls/hr IV UD PRN PRN Reason: Magnesium </= 1.6 Sodium Chloride (Sodium Chloride 0.9%) 1,000 mls @ 125 mls/hr IV .Q8H [facility] Stop: 12/02/19 11:39 Last Admin: 12/02/19 02:48 Dose: Not Given Documented by: Ceftriaxone Sodium 2 gm/ (Dextrose) 50 mls @ 100 mls/hr IV Q24H [facility]; Protocol Last Admin: 12/01/19 20:27 Dose: Not Given Documented by: Insulin Glargine (Lantus) 25 unit SQ QAM [facility] Insulin Human Lispro (Humalog) 0 unit SQ Q4 [facility]; Protocol Last Admin: 12/02/19 04:30 Dose: 8 units Documented by: Lactobacillus Rhamnosus (Culturelle) 1 cap PO BID [facility] Levothyroxine Sodium (Synthroid) 125 mcg PO DAILY [facility] Metformin HCl (Glucophage) 1,000 [facility] [place] Metoclopramide HCl (Reglan) 10 mg IV Q6HP PRN PRN Reason: Nausea And Vomiting Metoprolol Tartrate (Lopressor) 25 mg PO BID [facility] Last Admin: 12/01/19 21:08 Dose: 25 mg Documented by: Morphine Sulfate (Ms Contin) 30 mg PO TID [facility]; Protocol Last Admin: 12/01/19 21:08 Dose: 30 mg Documented by: Non-Formulary Medication (Prednisolone [Millipred]) 7.5 mg PO DAILY [facility] Nystatin (Nystatin Crm) 1 dose TOPICAL BID [facility] Last Admin: 12/01/19 21:09 Dose: Not Given Documented by: Ondansetron HCl (Zofran) 4 mg IV Q4HP PRN PRN Reason: Nausea And Vomiting Dulaglutide [ Trulicity] 0.75 Mg Syringe 1 dose SC WEEKLY [facility] Polyethylene Glycol (Miralax) 17 gm PO DAILYP PRN PRN Reason: Constipation Potassium Chloride (Kdur) 40 meq PO UD PRN PRN Reason: Potssium is 3-3.5 Potassium Chloride (Kdur) 40 meq PO UD PRN PRN Reason: Potassium < 3 Pregabalin (Lyrica) 25 mg PO TID [facility] Last Admin: 12/01/19 21:09 Dose: 25 mg Documented by: Prochlorperazine (Compazine) 10 mg IV Q6HP PRN PRN Reason: Nausea And Vomiting Senna (Senokot) 2 tab PO DAILYP PRN PRN Reason: Constipation Sodium Chloride (Saline Flush) 10 ml IV Q8 [facility] Last Admin: 12/02/19 05:16 Dose: 10 ml Documented by: Tamsulosin HCl (Flomax) 0.4 mg PO DAILY [facility] Tramadol HCl (Ultram) 50 mg PO QID PRN PRN Reason: Pain - ABG Interpretation ABG results: 12/01/19 08:25 ABG Methemoglobin 0.1 L VBG pH 7.36 VBG pCO2 33.1 L VBG pO2 97 H VBG HCO3 18.4 L VBG Total CO2 19.5 L VBG O2 Saturation 93.5 H VBG Base Excess -6.1 L Medical - PN: A/P - Time Spent With Patient Total time spent is greater than 50% in coordination of care (as documented) at patient's floor/unit and/or counseling patient: - Narrative A/P Narrative: A: *UTI: *Sepsis w/hypotension resolved with IVF: -Leukocytosis resolved *Diabetes w/hyperglycemia and HHS and likely component of mild DKA -DM complication of PVD and neuropathy *Met acidosis AG; 2/2 above, resolved. *Pseudohyponatremia: Corrected *GI bleed, upper likely, slow bleed (h/o PUD): *Anemia, with blood loss, slow bleed: -Hgb dropped, dilutional component as well *Weakness/deconditioning/debility *Morbid obesity: *KARO on bipap: *Ipgodrr-Kftmu-Nofqv syndrome w/ chronic pain: - *Hypothyroidism: *?HTN: on lopressor 25 bid * P: -Rocephin, pending UC/BC -IVF's d/c -basal and SSI -Dr. Art consulted -monitor H&H -clear liquid diet -home bipap -cont home pain meds -cont home Lopressor -Clarify if taking and why on prednisolone daily -pt/ot -ppx: lovenox CPR ok, but no Intubation
[2019-12-02] MEDS: metFORMIN 500 MG TABLET PO SCH ×2 (08:04→17:00)
[2019-12-02] MEDS: morphine 30 MG TAB.SR.12H PO SCH ×3 (08:04→22:46)
[2019-12-02] MEDS: INSULIN GLARGINE, HUMAN 1 UNIT/0.01 ML SQ SCH (08:18)
[2019-12-02] MEDS ORDERED: LEVOTHYROXINE 125 MCG TABLET PO SCH (09:00)
[2019-12-02] MEDS ORDERED: ENOXAPARIN 40 MG/0.4 ML SYRINGE SQ SCH (09:00)
[2019-12-02] MEDS: METOPROLOL TARTRATE 25 MG TABLET PO SCH ×2 (10:14→22:46)
[2019-12-02] MEDS: TAMSULOSIN 0.4 MG CAPSULE PO SCH (10:14)
[2019-12-02] MEDS: GABAPENTIN 300 MG CAPSULE PO SCH ×3 (10:14→22:46)
[2019-12-02] MEDS: PREGABALIN 25 MG CAPSULE PO SCH ×3 (10:14→22:46)
[2019-12-02] MEDS: prednisoLONE 15 MG/5 ML ORAL SOL PO SCH (10:15)
[2019-12-02] MEDS ORDERED: cefTRIAXone 2 GM VIAL ONE (10:27)
[2019-12-02] MEDS: cefTRIAXone 2 GM in DEXTROSE 5% IN WATER 50 ML IV SCH (10:28)
[2019-12-02] MEDS: LACTOBACILLUS 1 CAPSULE PO SCH ×2 (10:28→22:46)
[2019-12-02] MEDS: NYSTATIN CRM 1 DOSE TUBE TOPICAL SCH ×2 (11:33→22:49)
[2019-12-02] MEDS ORDERED: 0.9 % SODIUM CHLORIDE 250 ML IV SCH (16:30)
[2019-12-02] MEDS: PANTOPRAZOLE 40 MG PACKET PO SCH (17:00)
[2019-12-02 17:24] LABS: Hematocrit 23.2 % (40.1-51.0)
--- NOTE | 2019-12-02 17:41 | General Surgery Progress Note ---
Subjective Patient reports: feels better, pain is less, tolerating liquids well, flatus, no bowel movement, blood in stool, afebrile Narrative: Note initiated : 12/02/19 at 5:35 pm Service Date, if different from initiated Date: [] Patient: Álvaro Fernandez 64 y/o M admitted on 12/01/19 for weakness. Chief Complaint: [64-year-old male who presents with a one-week history of progressive weakness. The patient had black stools on Monday and Monday of this week. He has not had any bowel movement since that time. He has had some lower abdominal pain. He had one episode of emesis of brown liquid. He has a prior history of upper GI bleed in 2018 and was found to have dieulifoys ulceration. He was admitted with a hemoglobin of 10. However, it dropped to 7.6. Patient is clinically stable at this time. He is counseled for upper endoscopy. He also has findings of urosepsis and is being treated for that. Once the urosepsis is stable and he has been transfused We will set him up for upper endoscopy prior to discharge.] Objective Temp Pulse Resp BP Pulse Ox 97.3 F 85 16 104/50 93 12/02/19 16:22 12/02/19 16:22 12/02/19 16:22 12/02/19 16:22 12/02/19 16:22 - Additional Data Intake & Output - Last 24 hours: Intake & Output 11/30/19 12/01/19 12/02/19 12/03/19 05:59 05:59 05:59 05:59 Intake Total 4457 979 Output Total 477 403 Balance 3980 576 Weight 336 lb 336 lb - Labs 12/02/19 16:47 12/02/19 05:15 Diabetes panel 12/02/19 Range/Units 05:15 Sodium 133 (133-145) mmol/L Potassium 3.6 (3.3-5.1) mmol/L Chloride 102 (96-108) mmol/L Carbon Dioxide 22 (22-30) mmol/L BUN 19 (8-23) mg/dl Creatinine 0.6 L (0.7-1.2) mg/dl Glucose 237 H (70-105) mg/dL Calcium 7.2 L (8.6-10.4) mg/dl AST 11 (0-37) U/l ALT 16 (0-40) U/l Alkaline Phosphatase 46 (39-117) U/L Total Protein 4.6 L (5.9-8.4) gm/dL Albumin 2.2 L (3.2-5.2) gm/dL Triglycerides 102 (<150) mg/dl Thyroid panel 12/01/19 Range/Units 08:25 TSH 0.25 L (0.27-5.01) uIU/ml Calcium panel 12/02/19 Range/Units 05:15 Calcium 7.2 L (8.6-10.4) mg/dl Phosphorus 2.3 L (2.7-4.5) mg/dL Albumin 2.2 L (3.2-5.2) gm/dL Pituitary panel 12/01/19 12/02/19 Range/Units 08:25 05:15 Sodium 133 (133-145) mmol/L Potassium 3.6 (3.3-5.1) mmol/L Chloride 102 (96-108) mmol/L Carbon Dioxide 22 (22-30) mmol/L BUN 19 (8-23) mg/dl Creatinine 0.6 L (0.7-1.2) mg/dl Glucose 237 H (70-105) mg/dL Calcium 7.2 L (8.6-10.4) mg/dl TSH 0.25 L (0.27-5.01) uIU/ml Adrenal panel 12/02/19 Range/Units 05:15 Sodium 133 (133-145) mmol/L Potassium 3.6 (3.3-5.1) mmol/L Chloride 102 (96-108) mmol/L Carbon Dioxide 22 (22-30) mmol/L BUN 19 (8-23) mg/dl Creatinine 0.6 L (0.7-1.2) mg/dl Glucose 237 H (70-105) mg/dL Calcium 7.2 L (8.6-10.4) mg/dl Total Bilirubin 0.4 (0.0-1.0) mg/dL AST 11 (0-37) U/l ALT 16 (0-40) U/l Alkaline Phosphatase 46 (39-117) U/L Total Protein 4.6 L (5.9-8.4) gm/dL Albumin 2.2 L (3.2-5.2) gm/dL Assessment and Plan - Time Spent With Patient Total time spent is greater than 50% in coordination of care (as documented) at patient's floor/unit and/or counseling patient:
--- NOTE | 2019-12-02 17:45 | General Surgery Consult Note ---
History of Present Illness Patient information: Note initiated : 12/02/19 at 5:43 pm Service Date, if different from initiated Date: [] Patient: Álvaro Fernandez 64 y/o M admitted on 12/01/19 for weakness. Chief Complaint: [] Reason for consult: abdominal pain Requesting physician: Clarke Tucker History of present illness: 64-year-old male who presents with a one-week history of progressive weakness. Patient had black stools on Monday and Monday of last week. He has not had any bowel movements since that time. He has had some lower abdominal pain and he had one episode of emesis of brown liquid. The patient was seen in the emergency room and was noted to have a hemoglobin of 10. Stool guaiacs were positive. He has a prior history of upper GI bleeding in 2018 and was found to have Dieulifoys ulcerations. He has also undergone colonoscopy and capsule endoscopy without other findings. Patient's hemoglobin dropped to 7.6 after hydration. He is clinically stable at this time. The patient has findings of a urosepsis and is being stabilized at this time. Once he is stable from the urosepsis and has been transfused O I will set him up for upper endoscopy prior to discharge. Review of Systems - Constitutional fatigue, malaise, night sweats, weakness, weight gain - Cardiovascular palpatations, syncope - Respiratory cough, dyspnea on exertion, snoring - Gastrointestinal abdominal pain, cramping, heartburn, melena, nausea, vomiting - Genitourinary urinary frequency, urinary incontinence, urinary urgency - Musculoskeletal back pain, deformity, joint swelling, muscle weakness, myalgias, radiating pain into limb, stiffness - Integumentary new lesions, no pruritus, no rash - Neurological abnormal gait, disequilibrium, dizziness, focal weakness, lack of coordination, memory loss, weakness Past History Past medical history: Jeoifpt-Iicek-Cbepg syndrome. DIEULIFOYS ulcer Obstructive sleep apnea. Diabetes mellitus. Hypertension. Peripheral neuropathy. Peripheral vascular disease Past surgical history: Right mykkk-peq-bpwy amputation June 2017. OT IF left ankle. Open cholecystectomy Past family history: Family history of coronary artery disease Medications and Allergies Home Medications Medication Instructions Recorded Confirmed Type Dulaglutide [Trulicity] 0.75 mg SC WEEKLY 12/01/19 12/01/19 History Famotidine [Pepcid] 20 mg PO BID 12/01/19 12/01/19 History Gabapentin [Gralise] 600 mg PO TID 12/01/19 12/01/19 History HYDROcodone/APAP 5/325MG [[place] 1 tab PO Q4HP PRN 12/01/19 12/01/19 History 5-325Mg] Insulin Detemir [Levemir] 25 unit SQ QAM 12/01/19 12/01/19 History Levothyroxine [Synthroid] 250 mcg PO DAILY 12/01/19 12/02/19 History Metoprolol Tartrate [Lopressor] 25 mg PO BID 12/01/19 12/01/19 History Miconazole TOPICAL PRN 12/01/19 12/01/19 History Ondansetron HCl [Zofran] 4 mg PO TID PRN 12/01/19 12/01/19 History Potassium Chloride [Kdur] 20 meq PO BIDCC 12/01/19 12/01/19 History Pregabalin [Lyrica] 25 mg PO TID 12/01/19 12/01/19 History Saccharomyces Boulardii [Florastor] 250 mg PO BID 12/01/19 12/01/19 History Tamsulosin [Flomax] 1 cap PO DAILY 12/01/19 12/01/19 History metFORMIN [Glucophage] 1,000 mg PO BIDCC 12/01/19 12/01/19 History morphine SULFATE [Morphine Sulfate 30 mg PO TID 12/01/19 12/01/19 History ER] prednisoLONE [Millipred] 7.5 mg PO DAILY 12/01/19 12/01/19 History traMADol [Ultram] 1 tab PO QID PRN 12/01/19 12/01/19 History Allergies Allergy/AdvReac Type Severity Reaction Status Date / Time No Known Drug Allergies Allergy Verified 12/07/18 18:40 Exam Temp Pulse Resp BP Pulse Ox 97.3 F 85 16 104/50 93 12/02/19 16:22 12/02/19 16:22 12/02/19 16:22 12/02/19 16:22 12/02/19 16:22 - General physical appearance well developed, well nourished, no distress, chronically ill, obese (mmmmmmmmmmmmmmmorbidly obese) - ENT normal mucosa - Head Head exam IM: Present: normal inspection - Neck other (Willian large thick short neck) - Cardiovascular Cardiovascular exam IM: Present: RRR, +S1, +S2. Absent: JVD, tachycardia - Respiratory normal expansion, normal respiratory effort, clear to auscultation - Abdomen Abdomen: Present: soft, non tender, bowel sounds, surgical scars, distended - Rectum Rectum: Present: other (. Stool guaiac positive) - Integumentary Present: no rash, no growths, no abnormal pigmentation - Neurologic Present: other ( wheelchair-bound. Flexion contractures of both hands; decreased sensory below the waist) - Musculoskeletal Present: other ( right below the knee amputation; Charcot foot left, with major swelling) - Psychiatric Present: oriented to time, oriented to person, oriented to place, speech is normal, memory intact Results - Labs 12/02/19 16:47 12/02/19 05:15 Abnormal lab results 12/01/19 12/01/19 12/02/19 Range/Units 08:25 08:25 05:15 RBC 2.39 L (4.63-6.08) M/mcL Hgb 7.6 L (13.7-17.5) g/dL Hct 22.3 L (40.1-51.0) % RDW 15.4 H (11.5-14.5) % MPV 11.0 H (7.4-10.4) fL [place] # (Auto) 0.92 H (0.10-0.90) K/mcL Creatinine (0.7-1.2) mg/dl Glucose (70-105) mg/dL Calcium (8.6-10.4) mg/dl Phosphorus (2.7-4.5) mg/dL Total Protein (5.9-8.4) gm/dL Albumin (3.2-5.2) gm/dL Albumin/Globulin Ratio (1.0-2.3) Beta-Hydroxybutyrate 3.43 H (< 0.27) mmol/L TSH 0.25 L (0.27-5.01) uIU/ml 12/02/19 12/02/19 Range/Units 05:15 16:47 RBC (4.63-6.08) M/mcL Hgb 8.0 L (13.7-17.5) g/dL Hct 23.2 L (40.1-51.0) % RDW (11.5-14.5) % MPV (7.4-10.4) fL [place] # (Auto) (0.10-0.90) K/mcL Creatinine 0.6 L (0.7-1.2) mg/dl Glucose 237 H (70-105) mg/dL Calcium 7.2 L (8.6-10.4) mg/dl Phosphorus 2.3 L (2.7-4.5) mg/dL Total Protein 4.6 L (5.9-8.4) gm/dL Albumin 2.2 L (3.2-5.2) gm/dL Albumin/Globulin Ratio 0.9 L (1.0-2.3) Beta-Hydroxybutyrate (< 0.27) mmol/L TSH (0.27-5.01) uIU/ml Diabetes panel 12/02/19 Range/Units 05:15 Sodium 133 (133-145) mmol/L Potassium 3.6 (3.3-5.1) mmol/L Chloride 102 (96-108) mmol/L Carbon Dioxide 22 (22-30) mmol/L BUN 19 (8-23) mg/dl Creatinine 0.6 L (0.7-1.2) mg/dl Glucose 237 H (70-105) mg/dL Calcium 7.2 L (8.6-10.4) mg/dl AST 11 (0-37) U/l ALT 16 (0-40) U/l Alkaline Phosphatase 46 (39-117) U/L Total Protein 4.6 L (5.9-8.4) gm/dL Albumin 2.2 L (3.2-5.2) gm/dL Triglycerides 102 (<150) mg/dl Thyroid panel 12/01/19 Range/Units 08:25 TSH 0.25 L (0.27-5.01) uIU/ml Calcium panel 12/02/19 Range/Units 05:15 Calcium 7.2 L (8.6-10.4) mg/dl Phosphorus 2.3 L (2.7-4.5) mg/dL Albumin 2.2 L (3.2-5.2) gm/dL Pituitary panel 12/01/19 12/02/19 Range/Units 08:25 05:15 Sodium 133 (133-145) mmol/L Potassium 3.6 (3.3-5.1) mmol/L Chloride 102 (96-108) mmol/L Carbon Dioxide 22 (22-30) mmol/L BUN 19 (8-23) mg/dl Creatinine 0.6 L (0.7-1.2) mg/dl Glucose 237 H (70-105) mg/dL Calcium 7.2 L (8.6-10.4) mg/dl TSH 0.25 L (0.27-5.01) uIU/ml Adrenal panel 12/02/19 Range/Units 05:15 Sodium 133 (133-145) mmol/L Potassium 3.6 (3.3-5.1) mmol/L Chloride 102 (96-108) mmol/L Carbon Dioxide 22 (22-30) mmol/L BUN 19 (8-23) mg/dl Creatinine 0.6 L (0.7-1.2) mg/dl Glucose 237 H (70-105) mg/dL Calcium 7.2 L (8.6-10.4) mg/dl Total Bilirubin 0.4 (0.0-1.0) mg/dL AST 11 (0-37) U/l ALT 16 (0-40) U/l Alkaline Phosphatase 46 (39-117) U/L Total Protein 4.6 L (5.9-8.4) gm/dL Albumin 2.2 L (3.2-5.2) gm/dL All other labs normal. Assessment and Plan (1) Upper gastrointestinal bleeding Status: Acute (2) Urinary tract infection Status: Acute (3) Acute blood loss anemia Status: Acute (4) Diabetes mellitus Status: Acute Qualifiers: Diabetes mellitus type: type 2 Diabetes mellitus exterminator helper insulin use: with detention use Diabetes mellitus complication status: with neurologic complications (5) Obstructive sleep apnea of adult Status: Acute
[2019-12-03] MEDS: INSULIN LISPRO 1 UNIT/0.01 ML UNIT SQ SCH ×6 (04:04→21:41)
[2019-12-03] MEDS: 0.9 % SODIUM CHLORIDE 10 ML SYRINGE IV SCH ×3 (06:04→21:52)
[2019-12-03 06:58] LABS: Basophils # (Auto) 0.03 K/mcL (0.00-0.30); Basophils % (Auto) 0.5 % (0.0-2.0); Eosinophils # (Auto) 0.12 K/mcL (0.00-0.70); Eosinophils % (Auto) 1.9 % (0.0-7.0); Granulocytes % (Auto) 62.9 % (38.0-78.0); Hematocrit 27.7 % (40.1-51.0); Hemoglobin 9.1 g/dL (13.7-17.5); Lymphocytes # (Auto) 1.46 K/mcL (1.50-4.80); Mean Cell Volume 96.2 fL (80.0-100.0); Mean Corpuscular HGB Conc 32.9 g/dL (31.0-36.0); Monocytes # (Auto) 0.74 K/mcL (0.10-0.90); Monocytes % (Auto) 11.7 % (1.0-12.0); Platelet Count 190 K/mcL (140-440); RBC 2.88 M/mcL (4.63-6.08); Red Cell Distribution Width 14.7 % (11.5-14.5); WBC 6.4 K/mcL (4.50-11.00)
[2019-12-03] MEDS: LEVOTHYROXINE 125 MCG TABLET PO SCH (07:16)
[2019-12-03] MEDS: metFORMIN 500 MG TABLET PO SCH ×2 (07:16→16:38)
[2019-12-03 07:19] LABS: Bilirubin,Direct < 0.2 mg/dL (0.0-0.3); Chloride 104 mmol/L (96-108)
[2019-12-03 07:22] LABS: ALT/SGPT 17 U/l (0-40); AST/SGOT 24 U/l (0-37); Albumin 2.2 gm/dL (3.2-5.2); Albumin/Globulin Ratio 0.8 (1.0-2.3); Alkaline Phosphatase 46 U/L (39-117); Bilirubin,Total 0.6 mg/dL (0.0-1.0); Blood Urea Nitrogen 8 mg/dl (8-23); Calcium 7.5 mg/dl (8.6-10.4); Carbon Dioxide 20 mmol/L (22-30); Globulin 2.8 gm/dL (2.2-3.7); Glomerular Filtration Rate 107; Glucose 184 mg/dL (70-105); Lactate Dehydrogenase 270 U/L (94-250); Phosphorous 2.6 mg/dL (2.7-4.5); Triglycerides 137 mg/dl (<150); Uric Acid 5.5 mg/dL (2.5-8.0)
[2019-12-03] MEDS: PANTOPRAZOLE 40 MG PACKET PO SCH ×2 (07:25→16:39)
[2019-12-03] MEDS: morphine 30 MG TAB.SR.12H PO SCH ×3 (08:59→21:46)
[2019-12-03] MEDS: GABAPENTIN 300 MG CAPSULE PO SCH ×3 (08:59→21:45)
[2019-12-03] MEDS: PREGABALIN 25 MG CAPSULE PO SCH ×3 (09:00→21:48)
[2019-12-03] MEDS: TAMSULOSIN 0.4 MG CAPSULE PO SCH (09:00)
[2019-12-03] MEDS: LACTOBACILLUS 1 CAPSULE PO SCH ×2 (09:00→21:45)
[2019-12-03] MEDS: METOPROLOL TARTRATE 25 MG TABLET PO SCH ×2 (09:00→21:47)
[2019-12-03] MEDS: INSULIN GLARGINE, HUMAN 1 UNIT/0.01 ML SQ SCH (09:00)
[2019-12-03] MEDS ORDERED: cefTRIAXone 2 GM VIAL ONE (09:07)
[2019-12-03] MEDS: prednisoLONE 15 MG/5 ML ORAL SOL PO SCH (09:15)
[2019-12-03] MEDS: cefTRIAXone 2 GM in DEXTROSE 5% IN WATER 50 ML IV SCH (09:15)
--- NOTE | 2019-12-03 09:55 | Internal Med Progress Note ---
Medical - PN: Subj Patient information: Note initiated : 12/03/19 at 9:53 am Service Date, if different from initiated Date: [] Patient: Álvaro Fernandez a 64 y/o M admitted on 12/01/19 for weakness. Chief Complaint: [] Interval history: Mr. Fernandez is a 64 year old M That about a week ago he developed some weakness some nausea did vomit which was brownish in color. Eventually started to feel a bit better and then few days ago he started getting sick to his stomach when he would eat. He reports an episode of diarrhea once each day for the past couple days described as part black and tarry. Denies taking any NSAIDs including aspirin. Currently administers insulin early this morning. Also has little bit of discomfort upon urination. In the ED he was found to have a leukocytosis. He systolic blood pressure in the 90s this morning. Lactate was 2.1. Urinalysis showed ketones leukocyte esterase and WBCs. Chest x-ray unremarkable. BUN elevated but creatinine okay. Dr. Art was contacted in the ED regarding potential upper GI bleed. Patient does have a history of peptic ulcer disease as well as a history of a dieulafoy lesion. Glucose was over 400 on admission. Venous blood gas pH 7.36. Ketones in the urine. Next as needed Pepcid but does not take regularly 12/01 No overnight events or new complaints. Blood pressure stable. Good oxygenation. Hemoglobin dropped, No bowel movements since admission. Feeling better. 12/02-status post 2 units blood transfusion. Hemoglobin at 9. Complains of abdominal cramping after having brought this morning. Improved during my visit. Due for upper endoscopy by surgery later today or tomorrow. Undergoing physical therapy. Continue existing treatment. On twice daily oral Protonix. White count normalized. Continue Rocephin. Sepsis resolved. - Constitutional Vitals: Vital Signs Temp Pulse Resp BP Pulse Ox 98.3 F 92 H 18 107/62 98 12/03/19 08:00 12/03/19 08:00 12/03/19 08:00 12/03/19 08:00 12/03/19 08:00 Period Temp Pulse Resp BP Sys/Orozco Pulse Ox Last 24 Hr 97.3 F-100.4 F 83-104 10-26 90-128/45-79 91-100 Intake and Output 12/02/19 12/03/19 12/03/19 21:59 05:59 13:59 Intake Total 1469 Output Total 2 1 Balance 1467 -1 Weight 330 lb Intake & Output: Intake & Output 12/02/19 12/03/19 12/03/19 21:59 05:59 13:59 Intake Total 1469 Output Total 2 1 Balance 1467 -1 Weight 330 lb Intake: Oral 800 Blood Product 669 Output: # of times incontinent of urine 2 1 Other: Meal Dinner Percent of Meal Consumed 100% General appearance: no acute distress Exam: Alert oriented Nonlabored breathing No anxiety Nondistended abdomen No pallor Medical - PN: Obj Da - Labs CBC & Chem 7: 12/03/19 06:10 12/03/19 06:10 Labs: Abnormal Lab Results 12/03/19 12/03/19 12/02/19 06:10 06:10 16:47 WBC RBC 2.88 L Hgb 9.1 L 8.0 L Hct 27.7 L 23.2 L RDW 14.7 H MPV 11.0 H Gran % Lymph % (Auto) Gran # Lymph # (Auto) 1.46 L [place] # (Auto) ABG Methemoglobin VBG pCO2 VBG pO2 VBG HCO3 VBG Total CO2 VBG O2 Saturation VBG Base Excess VBG Lactic Acid Carboxyhemoglobin Total Hemoglobin Sodium Chloride Carbon Dioxide 20 L Anion Gap BUN Creatinine 0.6 L Glucose 184 H Osmolality Calcium 7.5 L Phosphorus 2.6 L Lactate Dehydrogenase 270 H C-Reactive Protein Total Protein 5.0 L Albumin 2.2 L Albumin/Globulin Ratio 0.8 L Beta-Hydroxybutyrate TSH Urine Glucose (UA) Urine Ketones Urine Occult Blood Ur Leukocyte Esterase Urine RBC Urine WBC 12/02/19 12/02/19 12/01/19 05:15 05:15 12:48 WBC RBC 2.39 L Hgb 7.6 L Hct 22.3 L RDW 15.4 H MPV 11.0 H Gran % Lymph % (Auto) Gran # Lymph # (Auto) [place] # (Auto) 0.92 H ABG Methemoglobin VBG pCO2 VBG pO2 VBG HCO3 VBG Total CO2 VBG O2 Saturation VBG Base Excess VBG Lactic Acid 2.1 H Carboxyhemoglobin Total Hemoglobin Sodium Chloride Carbon Dioxide Anion Gap BUN Creatinine 0.6 L Glucose 237 H Osmolality Calcium 7.2 L Phosphorus 2.3 L Lactate Dehydrogenase C-Reactive Protein Total Protein 4.6 L Albumin 2.2 L Albumin/Globulin Ratio 0.9 L Beta-Hydroxybutyrate TSH Urine Glucose (UA) Urine Ketones Urine Occult Blood Ur Leukocyte Esterase Urine RBC Urine WBC 12/01/19 12/01/19 12/01/19 08:40 08:25 08:25 WBC RBC Hgb Hct RDW MPV Gran % Lymph % (Auto) Gran # Lymph # (Auto) [place] # (Auto) ABG Methemoglobin VBG pCO2 VBG pO2 VBG HCO3 VBG Total CO2 VBG O2 Saturation VBG Base Excess VBG Lactic Acid Carboxyhemoglobin Total Hemoglobin Sodium Chloride Carbon Dioxide Anion Gap BUN Creatinine Glucose Osmolality Calcium Phosphorus Lactate Dehydrogenase C-Reactive Protein Total Protein Albumin Albumin/Globulin Ratio Beta-Hydroxybutyrate 3.43 H TSH 0.25 L Urine Glucose (UA) >=500 A Urine Ketones 80 A Urine Occult Blood 0.03 A Ur Leukocyte Esterase 25 A Urine RBC 2 H Urine WBC 12 H 12/01/19 12/01/19 12/01/19 08:25 08:25 08:25 WBC RBC Hgb Hct RDW MPV Gran % Lymph % (Auto) Gran # Lymph # (Auto) [place] # (Auto) ABG Methemoglobin 0.1 L VBG pCO2 33.1 L VBG pO2 97 H VBG HCO3 18.4 L VBG Total CO2 19.5 L VBG O2 Saturation 93.5 H VBG Base Excess -6.1 L VBG Lactic Acid Carboxyhemoglobin 4.1 H Total Hemoglobin 10.8 L Sodium 130 L Chloride 91 L Carbon Dioxide 17 L Anion Gap 22.0 H BUN 34 H Creatinine Glucose 442 H Osmolality 305 H Calcium 8.4 L Phosphorus Lactate Dehydrogenase C-Reactive Protein 6.4 H Total Protein Albumin 2.9 L Albumin/Globulin Ratio Beta-Hydroxybutyrate TSH Urine Glucose (UA) Urine Ketones Urine Occult Blood Ur Leukocyte Esterase Urine RBC Urine WBC 12/01/19 08:25 WBC 15.9 H RBC 3.34 L Hgb 10.6 L Hct 31.4 L RDW 15.0 H MPV 11.5 H Gran % 89.1 H Lymph % (Auto) 4.3 L Gran # 14.19 H Lymph # (Auto) 0.68 L [place] # (Auto) 0.97 H ABG Methemoglobin VBG pCO2 VBG pO2 VBG HCO3 VBG Total CO2 VBG O2 Saturation VBG Base Excess VBG Lactic Acid Carboxyhemoglobin Total Hemoglobin Sodium Chloride Carbon Dioxide Anion Gap BUN Creatinine Glucose Osmolality Calcium Phosphorus Lactate Dehydrogenase C-Reactive Protein Total Protein Albumin Albumin/Globulin Ratio Beta-Hydroxybutyrate TSH Urine Glucose (UA) Urine Ketones Urine Occult Blood Ur Leukocyte Esterase Urine RBC Urine WBC Meds: Medications Acetaminophen (Tylenol) 650 mg PO Q6HP PRN PRN Reason: PAIN/FEVER > 101 Hydrocodone Bitart/Acetaminophen ([place] 5/325mg) 1 tab PO Q4HP PRN; Protocol PRN Reason: Pain Albuterol/Ipratropium (Duoneb) 3 ml NEB Q4HP PRN PRN Reason: Shortness Of Breath Dextrose (Dextrose 50%) 0 ml IV UD PRN PRN Reason: Hypoglycemia Diagnostic Test (Pha) (Accu-Chek) 1 each FS Q4 [facility] Last Admin: 12/03/19 07:10 Dose: 1 each Documented by: Gabapentin (Neurontin) 600 mg PO TID [facility] Last Admin: 12/03/19 08:59 Dose: 600 mg Documented by: Glucose (Insta-Glucose) 15 gm PO PRN PRN PRN Reason: Hypoglycemia Potassium Chloride 40 meq/ (Dextrose) 520 mls @ 130 mls/hr IV UD PRN PRN Reason: Potassium < 3 Magnesium Sulfate (Magnesium Sulfate) 2 gm in 50 mls @ 50 mls/hr IV UD PRN PRN Reason: Magnesium </= 1.6 Ceftriaxone Sodium 2 gm/ (Dextrose) 50 mls @ 100 mls/hr IV Q24H [facility]; Protocol Last Admin: 12/03/19 09:15 Dose: 100 mls/hr Documented by: Insulin Glargine (Lantus) 25 unit SQ QAM [facility] Last Admin: 12/03/19 09:00 Dose: 25 unit Documented by: Insulin Human Lispro (Humalog) 0 unit SQ Q4 [facility]; Protocol Last Admin: 12/03/19 07:10 Dose: 6 units Documented by: Lactobacillus Rhamnosus (Culturelle) 1 cap PO BID [facility] Last Admin: 12/03/19 09:00 Dose: 1 cap Documented by: Levothyroxine Sodium (Synthroid) 250 mcg PO QAMAC [facility] Last Admin: 12/03/19 07:16 Dose: 250 mcg Documented by: Metformin HCl (Glucophage) 1,000 mg PO BIDCC [facility] Last Admin: 12/03/19 07:16 Dose: 1,000 mg Documented by: Metoclopramide HCl (Reglan) 10 mg IV Q6HP PRN PRN Reason: Nausea And Vomiting Metoprolol Tartrate (Lopressor) 25 mg PO BID [facility] Last Admin: 12/03/19 09:00 Dose: 25 mg Documented by: Morphine Sulfate (Ms Contin) 30 mg PO TID [facility]; Protocol Last Admin: 12/03/19 08:59 Dose: 30 mg Documented by: Nystatin (Nystatin Crm) 1 dose TOPICAL BID [facility] Last Admin: 12/02/19 22:49 Dose: 1 dose Documented by: Ondansetron HCl (Zofran) 4 mg IV Q4HP PRN PRN Reason: Nausea And Vomiting Pantoprazole Sodium (Protonix) 40 mg PO BIDAC [facility] Last Admin: 12/03/19 07:25 Dose: 40 mg Documented by: Dulaglutide [ Trulicity] 0.75 Mg Syringe 1 dose SC WEEKLY [facility] Polyethylene Glycol (Miralax) 17 gm PO DAILYP PRN PRN Reason: Constipation Last Admin: 12/03/19 09:52 Dose: 17 gm Documented by: Potassium Chloride (Kdur) 40 meq PO UD PRN PRN Reason: Potssium is 3-3.5 Potassium Chloride (Kdur) 40 meq PO UD PRN PRN Reason: Potassium < 3 Prednisone (Prednisolone) 7.5 mg PO DAILY [facility] Last Admin: 12/03/19 09:15 Dose: 7.5 mg Documented by: Pregabalin (Lyrica) 25 mg PO TID [facility] Last Admin: 12/03/19 09:00 Dose: 25 mg Documented by: Prochlorperazine (Compazine) 10 mg IV Q6HP PRN PRN Reason: Nausea And Vomiting Senna (Senokot) 2 tab PO DAILYP PRN PRN Reason: Constipation Sodium Chloride (Saline Flush) 10 ml IV Q8 [facility] Last Admin: 12/03/19 06:04 Dose: 10 ml Documented by: Tamsulosin HCl (Flomax) 0.4 mg PO DAILY [facility] Last Admin: 12/03/19 09:00 Dose: 0.4 mg Documented by: Tramadol HCl (Ultram) 50 mg PO QID PRN PRN Reason: Pain - ABG Interpretation ABG results: 12/01/19 08:25 ABG Methemoglobin 0.1 L VBG pH 7.36 VBG pCO2 33.1 L VBG pO2 97 H VBG HCO3 18.4 L VBG Total CO2 19.5 L VBG O2 Saturation 93.5 H VBG Base Excess -6.1 L Medical - PN: A/P - Time Spent With Patient Total time spent is greater than 50% in coordination of care (as documented) at patient's floor/unit and/or counseling patient: 25 - 35 minutes (1) Urinary tract infection Status: Acute Assessment and plan: * Blood loss anemia-status post 2 units PRBC transfusion. Current hemoglobin 9 * Upper GI bleed-surgery on board. Await upper endoscopy. Continue PPI. * Complicated UTI-on antibiotic coverage. * Sepsis with hypotension-resolved with antibiotics and management per suraj delines. * Weakness deconditioning and debility continue PT OT. Tolerating therapies well. Anticipate SNF transfer. * Morbid obesity with obstructive sleep apnea on currently on BiPAP * DM type II on metformin/CC diet/basal prandial insulin * Neuropathy on gabapentin * History of CMT with chronic pain stable on gabapentin/morphine/Lyrica * Hypothyroidism on thyroxine * History of hypertension on Lopressor * BPH on Flomax * Limited code * Prophylaxis Lovenox Plan * De-escalate antibiotics based on cultures * Pre-existing medical condition management as above * PRN blood transfusion * Await upper endoscopy * PPI * PT OT nutrition support * Discharge planning Current Visit: No
[2019-12-03] MEDS: NYSTATIN CRM 1 DOSE TUBE TOPICAL SCH ×2 (11:27→21:00)
--- NOTE | 2019-12-03 17:16 | General Surgery Progress Note ---
Subjective Patient reports: feels better, still having pain, pain is less, flatus, no bowel movement, nausea, afebrile Narrative: Note initiated : 12/03/19 at 5:15 pm Service Date, if different from initiated Date: [] Patient: Álvaro Fernandez 64 y/o M admitted on 12/01/19 for weakness. Chief Complaint: [patient is significantly improved. His vital signs have normalized. He is afebrile. He had some upper abdominal pain earlier today but that has resolved. He's not had a bowel movement. White count 6.4, hemoglobin 9.1, hematocrit 27.7. Discussed with patient the need for endoscopy. I'll] Schedule him for upper endoscopy on Since I have a full operating day tomorrow. Objective Temp Pulse Resp BP Pulse Ox 98.4 F 90 16 101/55 98 12/03/19 12:00 12/03/19 12:00 12/03/19 12:00 12/03/19 12:00 12/03/19 12:00 - Additional Data Intake & Output - Last 24 hours: Intake & Output 12/01/19 12/02/19 12/03/19 12/04/19 05:59 05:59 05:59 05:59 Intake Total 4457 3088 Output Total 386 795 1611 Balance 3980 2681 -1151 Weight 336 lb 330 lb - General physical appearance no distress, no pain, chronically ill - Eyes PERRL, normal ocular movement - ENT normal pinna, normal nares, normal mucosa, no hearing loss, no congestion - Neck no masses, no bruits, trachea midline, no lymphadenopathy, no venous distension - Respiratory normal expansion, normal respiratory effort, clear to auscultation - Cardiovascular Cardiovascular exam: Present: normal rate and rhythm, RRR, +S1, +S2. Absent: JVD, tachycardia - Abdomen soft, non tender (abdomen is obese but soft; he has good active bowel sounds. There is no tenderness noted.) - Integumentary no rash, no growths, no abnormal pigmentation - Psychiatric oriented to time, oriented to person, oriented to place, speech is normal, memory intact - Labs 12/03/19 06:10 12/03/19 06:10 Diabetes panel 12/03/19 Range/Units 06:10 Sodium 136 (133-145) mmol/L Potassium 3.6 (3.3-5.1) mmol/L Chloride 104 (96-108) mmol/L Carbon Dioxide 20 L (22-30) mmol/L BUN 8 (8-23) mg/dl Creatinine 0.6 L (0.7-1.2) mg/dl Glucose 184 H (70-105) mg/dL Calcium 7.5 L (8.6-10.4) mg/dl AST 24 (0-37) U/l ALT 17 (0-40) U/l Alkaline Phosphatase 46 (39-117) U/L Total Protein 5.0 L (5.9-8.4) gm/dL Albumin 2.2 L (3.2-5.2) gm/dL Triglycerides 137 (<150) mg/dl Calcium panel 12/03/19 Range/Units 06:10 Calcium 7.5 L (8.6-10.4) mg/dl Phosphorus 2.6 L (2.7-4.5) mg/dL Albumin 2.2 L (3.2-5.2) gm/dL Pituitary panel 12/03/19 Range/Units 06:10 Sodium 136 (133-145) mmol/L Potassium 3.6 (3.3-5.1) mmol/L Chloride 104 (96-108) mmol/L Carbon Dioxide 20 L (22-30) mmol/L BUN 8 (8-23) mg/dl Creatinine 0.6 L (0.7-1.2) mg/dl Glucose 184 H (70-105) mg/dL Calcium 7.5 L (8.6-10.4) mg/dl Adrenal panel 12/03/19 Range/Units 06:10 Sodium 136 (133-145) mmol/L Potassium 3.6 (3.3-5.1) mmol/L Chloride 104 (96-108) mmol/L Carbon Dioxide 20 L (22-30) mmol/L BUN 8 (8-23) mg/dl Creatinine 0.6 L (0.7-1.2) mg/dl Glucose 184 H (70-105) mg/dL Calcium 7.5 L (8.6-10.4) mg/dl Total Bilirubin 0.6 (0.0-1.0) mg/dL AST 24 (0-37) U/l ALT 17 (0-40) U/l Alkaline Phosphatase 46 (39-117) U/L Total Protein 5.0 L (5.9-8.4) gm/dL Albumin 2.2 L (3.2-5.2) gm/dL Assessment and Plan (1) Upper gastrointestinal bleeding Status: Acute Assessment and plan: Patient is stable. Hemoglobin is stable. Counseled for endoscopy on Current Visit: Yes (2) Urinary tract infection Status: Acute Current Visit: No (3) Acute blood loss anemia Status: Acute Current Visit: Yes (4) Diabetes mellitus Status: Acute Current Visit: Yes (5) Obstructive sleep apnea of adult Status: Acute Current Visit: Yes - Time Spent With Patient Total time spent is greater than 50% in coordination of care (as documented) at patient's floor/unit and/or counseling patient:
[2019-12-04] MEDS: INSULIN LISPRO 1 UNIT/0.01 ML UNIT SQ SCH ×6 (05:21→21:15)
[2019-12-04] MEDS: 0.9 % SODIUM CHLORIDE 10 ML SYRINGE IV SCH ×3 (05:23→21:17)
[2019-12-04] MEDS: LEVOTHYROXINE 125 MCG TABLET PO SCH (07:15)
[2019-12-04] MEDS: PANTOPRAZOLE 40 MG PACKET PO SCH ×2 (07:15→17:20)
[2019-12-04 07:35] LABS: Basophils # (Auto) 0.03 K/mcL (0.00-0.30); Basophils % (Auto) 0.5 % (0.0-2.0); Eosinophils # (Auto) 0.15 K/mcL (0.00-0.70); Eosinophils % (Auto) 2.3 % (0.0-7.0); Granulocytes % (Auto) 57.7 % (38.0-78.0); Hemoglobin 9.2 g/dL (13.7-17.5); Lymphocytes # (Auto) 1.72 K/mcL (1.50-4.80); Lymphocytes % (Auto) 26.1 % (15.5-49.0); Mean Cell Volume 95.9 fL (80.0-100.0); Mean Corpuscular HGB Conc 32.9 g/dL (31.0-36.0); Mean Platelet Volume 10.2 fL (7.4-10.4); Monocytes # (Auto) 0.88 K/mcL (0.10-0.90); Monocytes % (Auto) 13.4 % (1.0-12.0); Platelet Count 204 K/mcL (140-440); RBC 2.92 M/mcL (4.63-6.08); Red Cell Distribution Width 14.8 % (11.5-14.5); WBC 6.6 K/mcL (4.50-11.00)
[2019-12-04 08:04] LABS: Bilirubin,Direct < 0.2 mg/dL (0.0-0.3); Chloride 102 mmol/L (96-108)
[2019-12-04 08:05] LABS: ALT/SGPT 21 U/l (0-40); AST/SGOT 24 U/l (0-37); Albumin 2.5 gm/dL (3.2-5.2); Albumin/Globulin Ratio 0.9 (1.0-2.3); Alkaline Phosphatase 48 U/L (39-117); Bilirubin,Total 0.6 mg/dL (0.0-1.0); Blood Urea Nitrogen 8 mg/dl (8-23); Calcium 7.8 mg/dl (8.6-10.4); Carbon Dioxide 22 mmol/L (22-30); Globulin 2.8 gm/dL (2.2-3.7); Glomerular Filtration Rate 100; Glucose 175 mg/dL (70-105); Lactate Dehydrogenase 205 U/L (94-250); Phosphorous 2.5 mg/dL (2.7-4.5); Triglycerides 107 mg/dl (<150); Uric Acid 5.2 mg/dL (2.5-8.0)
[2019-12-04] MEDS: metFORMIN 500 MG TABLET PO SCH ×2 (08:45→17:20)
[2019-12-04] MEDS: morphine 30 MG TAB.SR.12H PO SCH ×3 (08:45→21:12)
[2019-12-04] MEDS: METOPROLOL TARTRATE 25 MG TABLET PO SCH ×2 (08:45→21:14)
[2019-12-04] MEDS: LACTOBACILLUS 1 CAPSULE PO SCH ×2 (08:45→21:12)
[2019-12-04] MEDS: PREGABALIN 25 MG CAPSULE PO SCH ×3 (08:45→21:14)
[2019-12-04] MEDS: TAMSULOSIN 0.4 MG CAPSULE PO SCH (08:45)
[2019-12-04] MEDS: GABAPENTIN 300 MG CAPSULE PO SCH ×3 (08:45→21:12)
[2019-12-04] MEDS: cefTRIAXone 2 GM in DEXTROSE 5% IN WATER 50 ML IV SCH (09:00)
[2019-12-04] MEDS: INSULIN GLARGINE, HUMAN 1 UNIT/0.01 ML SQ SCH (09:05)
[2019-12-04] MEDS: prednisoLONE 15 MG/5 ML ORAL SOL PO SCH (09:15)
[2019-12-04] MEDS: NYSTATIN CRM 1 DOSE TUBE TOPICAL SCH ×2 (09:16→21:14)
--- NOTE | 2019-12-04 15:53 | Internal Med Progress Note ---
Medical - PN: Subj Patient information: Note initiated : 12/04/19 at 3:52 pm Service Date, if different from initiated Date: [] Patient: Álvaro Fernandez a 64 y/o M admitted on 12/01/19 for weakness. Chief Complaint: [] Interval history: Mr. Fernandez is a 64 year old M That about a week ago he developed some weakness some nausea did vomit which was brownish in color. Eventually started to feel a bit better and then few days ago he started getting sick to his stomach when he would eat. He reports an episode of diarrhea once each day for the past couple days described as part black and tarry. Denies taking any NSAIDs including aspirin. Currently administers insulin early this morning. Also has little bit of discomfort upon urination. In the ED he was found to have a leukocytosis. He systolic blood pressure in the 90s this morning. Lactate was 2.1. Urinalysis showed ketones leukocyte esterase and WBCs. Chest x-ray unremarkable. BUN elevated but creatinine okay. Dr. Art was contacted in the ED regarding potential upper GI bleed. Patient does have a history of peptic ulcer disease as well as a history of a dieulafoy lesion. Glucose was over 400 on admission. Venous blood gas pH 7.36. Ketones in the urine. Next as needed Pepcid but does not take regularly 12/01 No overnight events or new complaints. Blood pressure stable. Good oxygenation. Hemoglobin dropped, No bowel movements since admission. Feeling better. 12/02-status post 2 units blood transfusion. Hemoglobin at 9. Complains of abdominal cramping after having brought this morning. Improved during my visit. Due for upper endoscopy by surgery later today or tomorrow. Undergoing physical therapy. Continue existing treatment. On twice daily oral Protonix. White count normalized. Continue Rocephin. Sepsis resolved. 12/03-patient awaiting upper endoscopy. No further bloody bowels. Minimal abdominal discomfort. Currently on PPI. Hemoglobin stable at 9.2. - Constitutional Vitals: Vital Signs Temp Pulse Resp BP Pulse Ox 97.9 F 73 14 112/69 94 12/04/19 12:00 12/04/19 12:00 12/04/19 12:00 12/04/19 12:00 12/04/19 12:00 Period Temp Pulse Resp BP Sys/Orozco Pulse Ox Last 24 Hr 97.1 F-99.0 F 71-94 12-18 106-132/60-79 94-97 Intake and Output 12/04/19 12/04/19 12/04/19 05:59 13:59 21:59 Intake Total 475 1830 Output Total 202 1050 275 Balance 273 780 -275 Intake & Output: Intake & Output 12/04/19 12/04/19 12/04/19 05:59 13:59 21:59 Intake Total 475 1830 Output Total 202 1050 275 Balance 273 780 -275 Intake: IV 50 Rocephin 2 gm In Dextrose 5% in 50 Water 50 ml @ 100 mls/hr IV Q24H [facility] Rx#:[id number] Oral 475 1780 Output: Void Amount 200 1050 275 # of times incontinent of urine 2 Other: Meal Breakfast Percent of Meal Consumed 100% Urine Appearance Clear Urine Color Bright Yellow Straw Urine Odor Normal General appearance: no acute distress Exam: Morbid obese alert oriented No lymphedema No anxiety Nonlabored breathing Medical - PN: Obj Da - Labs CBC & Chem 7: 12/05/19 05:25 12/05/19 05:25 Labs: Abnormal Lab Results 12/04/19 12/04/19 12/03/19 05:59 05:59 06:10 RBC 2.92 L Hgb 9.2 L Hct 28.0 L RDW 14.8 H MPV [place] % (Auto) 13.4 H Lymph # (Auto) [place] # (Auto) Carbon Dioxide 20 L Creatinine 0.6 L Glucose 175 H 184 H Calcium 7.8 L 7.5 L Phosphorus 2.5 L 2.6 L Lactate Dehydrogenase 270 H C-Reactive Protein Total Protein 5.3 L 5.0 L Albumin 2.5 L 2.2 L Albumin/Globulin Ratio 0.9 L 0.8 L Beta-Hydroxybutyrate TSH 12/03/19 12/03/19 12/02/19 06:10 06:10 16:47 RBC 2.88 L Hgb 9.1 L 8.0 L Hct 27.7 L 23.2 L RDW 14.7 H MPV 11.0 H [place] % (Auto) Lymph # (Auto) 1.46 L [place] # (Auto) Carbon Dioxide Creatinine Glucose Calcium Phosphorus Lactate Dehydrogenase C-Reactive Protein 2.2 H Total Protein Albumin Albumin/Globulin Ratio Beta-Hydroxybutyrate TSH 12/02/19 12/02/19 12/01/19 05:15 05:15 08:25 RBC 2.39 L Hgb 7.6 L Hct 22.3 L RDW 15.4 H MPV 11.0 H [place] % (Auto) Lymph # (Auto) [place] # (Auto) 0.92 H Carbon Dioxide Creatinine 0.6 L Glucose 237 H Calcium 7.2 L Phosphorus 2.3 L Lactate Dehydrogenase C-Reactive Protein Total Protein 4.6 L Albumin 2.2 L Albumin/Globulin Ratio 0.9 L Beta-Hydroxybutyrate TSH 0.25 L 12/01/19 08:25 RBC Hgb Hct RDW MPV [place] % (Auto) Lymph # (Auto) [place] # (Auto) Carbon Dioxide Creatinine Glucose Calcium Phosphorus Lactate Dehydrogenase C-Reactive Protein Total Protein Albumin Albumin/Globulin Ratio Beta-Hydroxybutyrate 3.43 H TSH Meds: Medications Acetaminophen (Tylenol) 650 mg PO Q6HP PRN PRN Reason: PAIN/FEVER > 101 Hydrocodone Bitart/Acetaminophen ([place] 5/325mg) 1 tab PO Q4HP PRN; Protocol PRN Reason: Pain Albuterol/Ipratropium (Duoneb) 3 ml NEB Q4HP PRN PRN Reason: Shortness Of Breath Dextrose (Dextrose 50%) 0 ml IV UD PRN PRN Reason: Hypoglycemia Diagnostic Test (Pha) (Accu-Chek) 1 each FS ACHS [facility] Last Admin: 12/04/19 11:27 Dose: 1 each Documented by: Gabapentin (Neurontin) 600 mg PO TID [facility] Last Admin: 12/04/19 15:00 Dose: 600 mg Documented by: Glucose (Insta-Glucose) 15 gm PO PRN PRN PRN Reason: Hypoglycemia Potassium Chloride 40 meq/ (Dextrose) 520 mls @ 130 mls/hr IV UD PRN PRN Reason: Potassium < 3 Magnesium Sulfate (Magnesium Sulfate) 2 gm in 50 mls @ 50 mls/hr IV UD PRN PRN Reason: Magnesium </= 1.6 Ceftriaxone Sodium 2 gm/ (Dextrose) 50 mls @ 100 mls/hr IV Q24H [facility]; Protocol Last Admin: 12/04/19 09:00 Dose: 100 mls/hr Documented by: Insulin Glargine (Lantus) 25 unit SQ QAM [facility] Last Admin: 12/04/19 09:05 Dose: 25 unit Documented by: Insulin Human Lispro (Humalog) 0 unit SQ Q4 [facility]; Protocol Last Admin: 12/04/19 11:30 Dose: 6 units Documented by: Lactobacillus Rhamnosus (Culturelle) 1 cap PO BID [facility] Last Admin: 12/04/19 08:45 Dose: 1 cap Documented by: Levothyroxine Sodium (Synthroid) 250 mcg PO QAMAC [facility] Last Admin: 12/04/19 07:15 Dose: 250 mcg Documented by: Metformin HCl (Glucophage) 1,000 mg PO BIDCC [facility] Last Admin: 12/04/19 08:45 Dose: 1,000 mg Documented by: Metoclopramide HCl (Reglan) 10 mg IV Q6HP PRN PRN Reason: Nausea And Vomiting Metoprolol Tartrate (Lopressor) 25 mg PO BID [facility] Last Admin: 12/04/19 08:45 Dose: 25 mg Documented by: Morphine Sulfate (Ms Contin) 30 mg PO TID [facility]; Protocol Last Admin: 12/04/19 14:59 Dose: 30 mg Documented by: Nystatin (Nystatin Crm) 1 dose TOPICAL BID [facility] Last Admin: 12/04/19 09:16 Dose: 1 dose Documented by: Ondansetron HCl (Zofran) 4 mg IV Q4HP PRN PRN Reason: Nausea And Vomiting Pantoprazole Sodium (Protonix) 40 mg PO BIDAC [facility] Last Admin: 12/04/19 07:15 Dose: 40 mg Documented by: Dulaglutide [ Trulicity] 0.75 Mg Syringe 1 dose SC WEEKLY [facility] Polyethylene Glycol (Miralax) 17 gm PO DAILYP PRN PRN Reason: Constipation Last Admin: 12/03/19 09:52 Dose: 17 gm Documented by: Potassium Chloride (Kdur) 40 meq PO UD PRN PRN Reason: Potssium is 3-3.5 Potassium Chloride (Kdur) 40 meq PO UD PRN PRN Reason: Potassium < 3 Prednisone (Prednisolone) 7.5 mg PO DAILY [facility] Last Admin: 12/04/19 09:15 Dose: 7.5 mg Documented by: Pregabalin (Lyrica) 25 mg PO TID [facility] Last Admin: 12/04/19 15:00 Dose: 25 mg Documented by: Prochlorperazine (Compazine) 10 mg IV Q6HP PRN PRN Reason: Nausea And Vomiting Senna (Senokot) 2 tab PO DAILYP PRN PRN Reason: Constipation Sodium Chloride (Saline Flush) 10 ml IV Q8 [facility] Last Admin: 12/04/19 14:59 Dose: 10 ml Documented by: Tamsulosin HCl (Flomax) 0.4 mg PO DAILY [facility] Last Admin: 12/04/19 08:45 Dose: 0.4 mg Documented by: Tramadol HCl (Ultram) 50 mg PO QID PRN PRN Reason: Pain - ABG Interpretation ABG results: 12/01/19 08:25 ABG Methemoglobin 0.1 L VBG pH 7.36 VBG pCO2 33.1 L VBG pO2 97 H VBG HCO3 18.4 L VBG Total CO2 19.5 L VBG O2 Saturation 93.5 H VBG Base Excess -6.1 L Medical - PN: A/P - Time Spent With Patient Total time spent is greater than 50% in coordination of care (as documented) at patient's floor/unit and/or counseling patient: 25 - 35 minutes (1) Urinary tract infection Status: Acute Assessment and plan: * Blood loss anemia-status post 2 units PRBC transfusion. Hemoglobin stable at 9 * Upper GI bleed-surgery on board. Await upper endoscopy. Continue PPI. * Complicated Morganella UTI-on Rocephin per sensitivities * Sepsis with hypotension-resolved with antibiotics and management per matty gasca. * Weakness deconditioning and debility continue PT OT. Tolerating therapies well. Anticipate SNF transfer. * Morbid obesity with obstructive sleep apnea on currently on BiPAP * DM type II on metformin/CC diet/basal prandial insulin * Neuropathy on gabapentin * History of CMT with chronic pain stable on gabapentin/morphine/Lyrica * Hypothyroidism on thyroxine * History of hypertension on Lopressor * BPH on Flomax * Limited code * Prophylaxis Lovenox Plan * Continue pre-existing medical condition management as above * PRN blood transfusion * Await upper endoscopy, likely in 24 hours * PPI * PT OT nutrition support * Discharge planning Current Visit: No
--- NOTE | 2019-12-04 18:12 | General Surgery Progress Note ---
Subjective Patient reports: feels better, flatus, bowel movement, afebrile Narrative: Note initiated : 12/04/19 at 6:10 pm Service Date, if different from initiated Date: [] Patient: Álvaro Fernandez 64 y/o M admitted on 12/01/19 for weakness. Chief Complaint: [patient is clinically stable. He had a large brown bowel mo vement, but no blood was noted. Hemoglobin is stable at 9.2. Counseled him for upper endoscopy tomorrow] Objective Temp Pulse Resp BP Pulse Ox 98.1 F 80 80 H 127/73 95 12/04/19 16:00 12/04/19 16:00 12/04/19 16:00 12/04/19 16:00 12/04/19 16:00 - Additional Data Intake & Output - Last 24 hours: Intake & Output 12/02/19 12/03/19 12/04/19 12/05/19 05:59 05:59 05:59 05:59 Intake Total 4457 3088 1355 1830 Output Total 194 186 6667 1325 Balance 3980 2681 -248 505 Weight 336 lb 330 lb 328 lb 8 oz - General physical appearance no pain, chronically ill, obese - Eyes PERRL, normal ocular movement - ENT normal pinna, normal nares, normal mucosa, no hearing loss, no congestion - Neck no masses, no bruits, trachea midline, no lymphadenopathy, no venous distension - Respiratory normal expansion, normal respiratory effort, clear to auscultation - Cardiovascular Cardiovascular exam: Present: RRR, +S1, +S2. Absent: JVD, tachycardia - Abdomen non tender, bowel sounds (present), surgical scars (none), masses (none), distended (moderate distention) - Labs 12/04/19 05:59 12/04/19 05:59 Diabetes panel 12/04/19 Range/Units 05:59 Sodium 135 (133-145) mmol/L Potassium 3.5 (3.3-5.1) mmol/L Chloride 102 (96-108) mmol/L Carbon Dioxide 22 (22-30) mmol/L BUN 8 (8-23) mg/dl Creatinine 0.7 (0.7-1.2) mg/dl Glucose 175 H (70-105) mg/dL Calcium 7.8 L (8.6-10.4) mg/dl AST 24 (0-37) U/l ALT 21 (0-40) U/l Alkaline Phosphatase 48 (39-117) U/L Total Protein 5.3 L (5.9-8.4) gm/dL Albumin 2.5 L (3.2-5.2) gm/dL Triglycerides 107 (<150) mg/dl Calcium panel 12/04/19 Range/Units 05:59 Calcium 7.8 L (8.6-10.4) mg/dl Phosphorus 2.5 L (2.7-4.5) mg/dL Albumin 2.5 L (3.2-5.2) gm/dL Pituitary panel 12/04/19 Range/Units 05:59 Sodium 135 (133-145) mmol/L Potassium 3.5 (3.3-5.1) mmol/L Chloride 102 (96-108) mmol/L Carbon Dioxide 22 (22-30) mmol/L BUN 8 (8-23) mg/dl Creatinine 0.7 (0.7-1.2) mg/dl Glucose 175 H (70-105) mg/dL Calcium 7.8 L (8.6-10.4) mg/dl Adrenal panel 12/04/19 Range/Units 05:59 Sodium 135 (133-145) mmol/L Potassium 3.5 (3.3-5.1) mmol/L Chloride 102 (96-108) mmol/L Carbon Dioxide 22 (22-30) mmol/L BUN 8 (8-23) mg/dl Creatinine 0.7 (0.7-1.2) mg/dl Glucose 175 H (70-105) mg/dL Calcium 7.8 L (8.6-10.4) mg/dl Total Bilirubin 0.6 (0.0-1.0) mg/dL AST 24 (0-37) U/l ALT 21 (0-40) U/l Alkaline Phosphatase 48 (39-117) U/L Total Protein 5.3 L (5.9-8.4) gm/dL Albumin 2.5 L (3.2-5.2) gm/dL Assessment and Plan (1) Upper gastrointestinal bleeding Status: Acute Assessment and plan: Patient is stable. Hemoglobin is stable. will schedule for upper endoscopy tomorrow Current Visit: Yes (2) Urinary tract infection Status: Acute Current Visit: No (3) Acute blood loss anemia Status: Acute Current Visit: Yes (4) Diabetes mellitus Status: Acute Current Visit: Yes (5) Obstructive sleep apnea of adult Status: Acute Current Visit: Yes - Time Spent With Patient Total time spent is greater than 50% in coordination of care (as documented) at patient's floor/unit and/or counseling patient:
[2019-12-05] MEDS: INSULIN LISPRO 1 UNIT/0.01 ML UNIT SQ SCH ×6 (00:44→20:16)
[2019-12-05] MEDS: 0.9 % SODIUM CHLORIDE 10 ML SYRINGE IV SCH ×3 (06:13→20:17)
[2019-12-05 06:46] LABS: Basophils # (Auto) 0.02 K/mcL (0.00-0.30); Basophils % (Auto) 0.3 % (0.0-2.0); Eosinophils # (Auto) 0.14 K/mcL (0.00-0.70); Eosinophils % (Auto) 2.3 % (0.0-7.0); Granulocytes % (Auto) 60.4 % (38.0-78.0); Hematocrit 25.5 % (40.1-51.0); Hemoglobin 8.5 g/dL (13.7-17.5); Lymphocytes # (Auto) 1.65 K/mcL (1.50-4.80); Lymphocytes % (Auto) 27.6 % (15.5-49.0); Mean Cell Volume 94.8 fL (80.0-100.0); Mean Corpuscular HGB Conc 33.3 g/dL (31.0-36.0); Mean Platelet Volume 10.4 fL (7.4-10.4); Monocytes # (Auto) 0.56 K/mcL (0.10-0.90); Monocytes % (Auto) 9.4 % (1.0-12.0); Platelet Count 230 K/mcL (140-440); RBC 2.69 M/mcL (4.63-6.08); Red Cell Distribution Width 14.7 % (11.5-14.5)
[2019-12-05] MEDS: metFORMIN 500 MG TABLET PO SCH ×2 (07:20→16:53)
[2019-12-05] MEDS: LEVOTHYROXINE 125 MCG TABLET PO SCH (07:20)
[2019-12-05] MEDS: PANTOPRAZOLE 40 MG PACKET PO SCH ×2 (07:20→16:53)
[2019-12-05 07:42] LABS: Bilirubin,Direct < 0.2 mg/dL (0.0-0.3); Chloride 102 mmol/L (96-108)
[2019-12-05 07:43] LABS: ALT/SGPT 22 U/l (0-40); AST/SGOT 23 U/l (0-37); Albumin 2.5 gm/dL (3.2-5.2); Albumin/Globulin Ratio 0.9 (1.0-2.3); Alkaline Phosphatase 48 U/L (39-117); Bilirubin,Total 0.5 mg/dL (0.0-1.0); Blood Urea Nitrogen 9 mg/dl (8-23); Calcium 7.9 mg/dl (8.6-10.4); Carbon Dioxide 22 mmol/L (22-30); Globulin 2.7 gm/dL (2.2-3.7); Glomerular Filtration Rate 107; Glucose 205 mg/dL (70-105); Lactate Dehydrogenase 209 U/L (94-250); Phosphorous 2.6 mg/dL (2.7-4.5); Triglycerides 142 mg/dl (<150); Uric Acid 5.1 mg/dL (2.5-8.0)
[2019-12-05] MEDS: METOPROLOL TARTRATE 25 MG TABLET PO SCH ×2 (09:58→20:08)
[2019-12-05] MEDS: GABAPENTIN 300 MG CAPSULE PO SCH ×3 (09:58→20:08)
[2019-12-05] MEDS: TAMSULOSIN 0.4 MG CAPSULE PO SCH (09:58)
[2019-12-05] MEDS: morphine 30 MG TAB.SR.12H PO SCH ×3 (09:58→20:08)
[2019-12-05] MEDS: LACTOBACILLUS 1 CAPSULE PO SCH (09:58)
[2019-12-05] MEDS: NYSTATIN CRM 1 DOSE TUBE TOPICAL SCH (09:59)
[2019-12-05] MEDS: prednisoLONE 15 MG/5 ML ORAL SOL PO SCH (09:59)
[2019-12-05] MEDS: cefTRIAXone 2 GM in DEXTROSE 5% IN WATER 50 ML IV SCH (09:59)
[2019-12-05] MEDS: INSULIN GLARGINE, HUMAN 1 UNIT/0.01 ML SQ SCH (10:04)
[2019-12-05] MEDS ORDERED: HYDROmorphone 2 MG/ML VIAL ONE (12:26)
[2019-12-05] MEDS: PREGABALIN 25 MG CAPSULE PO SCH ×3 (13:14→20:08)
[2019-12-05] MEDS ORDERED: KETAMINE 10 MG/ML ML ONE (13:20)
[2019-12-05] MEDS ORDERED: PROPOFOL 200 MG/20 ML VIAL IV ONE (13:20)
[2019-12-05] MEDS ORDERED: LIDOCAINE HCL/PF 100 MG/5 ML SYRINGE IV ONE (13:20)
--- NOTE | 2019-12-05 13:53 | Brief Operative Note ---
Date of procedure: 12/05/19 Pre-op diagnosis: upper gastrointestinal bleebibg Post-op diagnosis: other (acute severe fundic and antral gastritis) Procedure: egd with clotest and fundic biopsies Grafts/Implants: No Anesthesia: none (general) Findings: severe inflammation of fundus and antrum but no active bleeding Complications: none Surgeon: Jeff Art Specimens Removed/Pathology: other (gastric mucosal biopsies for routine and clotest) Condition: stable Disposition: floor
[2019-12-05] MEDS ORDERED: traMADol 50 MG TABLET PO PRN (14:05)
[2019-12-05] MEDS ORDERED: DEXTROSE 31 GM ORAL.SUSP PO PRN (14:05)
[2019-12-05] MEDS ORDERED: IPRATROPIUM/ALBUTEROL 3 ML AMPUL.NEB NEB PRN (14:05)
[2019-12-05] MEDS ORDERED: ACETAMINOPHEN 325 MG TABLET PO PRN (14:05)
[2019-12-05] MEDS ORDERED: MAGNESIUM SULFATE 2 GM/50 ML BAG IV PRN (14:05)
[2019-12-05] MEDS ORDERED: ONDANSETRON 4 MG/2 ML VIAL IV PRN (14:05)
[2019-12-05] MEDS ORDERED: SENNOSIDES 1 TABLET PO PRN (14:05)
[2019-12-05] MEDS ORDERED: POTASSIUM CHLORIDE 20 MEQ TABLET PO PRN ×2 (14:05)
[2019-12-05] MEDS ORDERED: METOCLOPRAMIDE 10 MG/2 ML VIAL IV PRN (14:05)
[2019-12-05] MEDS ORDERED: POTASSIUM CHLORIDE 40 MEQ in DEXTROSE 5% IN WATER 500 ML IV PRN (14:05)
[2019-12-05] MEDS ORDERED: POLYETHYLENE GLYCOL 3350 17 GM PACKET PO PRN (14:05)
[2019-12-05] MEDS ORDERED: HYDROcodone/APAP 5/325MG TABLET PO PRN (14:05)
[2019-12-05] MEDS ORDERED: PROCHLORPERAZINE 10 MG/2 ML VIAL IV PRN (14:05)
[2019-12-05] MEDS ORDERED: DEXTROSE 50% 50 ML VIAL IV PRN (14:05)
--- NOTE | 2019-12-05 16:22 | Internal Med Progress Note ---
Medical - PN: Subj Patient information: Note initiated : 12/05/19 at 4:20 pm Service Date, if different from initiated Date: [] Patient: Álvaro Fernandez a 64 y/o M admitted on 12/01/19 for weakness. Chief Complaint: [] Interval history: Mr. Fernandez is a 64 year old M That about a week ago he developed some weakness some nausea did vomit which was brownish in color. Eventually started to feel a bit better and then few days ago he started getting sick to his stomach when he would eat. He reports an episode of diarrhea once each day for the past couple days described as part black and tarry. Denies taking any NSAIDs including aspirin. Currently administers insulin early this morning. Also has little bit of discomfort upon urination. In the ED he was found to have a leukocytosis. He systolic blood pressure in the 90s this morning. Lactate was 2.1. Urinalysis showed ketones leukocyte esterase and WBCs. Chest x-ray unremarkable. BUN elevated but creatinine okay. Dr. Art was contacted in the ED regarding potential upper GI bleed. Patient does have a history of peptic ulcer disease as well as a history of a dieulafoy lesion. Glucose was over 400 on admission. Venous blood gas pH 7.36. Ketones in the urine. Next as needed Pepcid but does not take regularly 12/01 No overnight events or new complaints. Blood pressure stable. Good oxygenation. Hemoglobin dropped, No bowel movements since admission. Feeling better. 12/02-status post 2 units blood transfusion. Hemoglobin at 9. Complains of abdominal cramping after having brought this morning. Improved during my visit. Due for upper endoscopy by surgery later today or tomorrow. Undergoing physical therapy. Continue existing treatment. On twice daily oral Protonix. White count normalized. Continue Rocephin. Sepsis resolved. 12/03-patient awaiting upper endoscopy. No further bloody bowels. Minimal abdominal discomfort. Currently on PPI. Hemoglobin stable at 9.2. 12/04-patient underwent upper endoscopy revealing severe inflammation of fundus and antrum without active bleed. Surgery recommends Carafate/PPI. May discharg e in 24 hours if no further bleed or drop in hematocrit. Start diet advancement as per surgery. No overnight fever chills. Hemoglobin 8.5. - Constitutional Vitals: Vital Signs Temp Pulse Resp BP Pulse Ox 98.7 F 104 H 16 115/63 97 12/05/19 16:00 12/05/19 16:00 12/05/19 16:00 12/05/19 16:00 12/05/19 16:00 Period Temp Pulse Resp BP Sys/Orozco Pulse Ox Last 24 Hr 97.6 F-98.7 F 72-110 16-18 102-132/52-83 95-97 Intake and Output 12/05/19 12/05/19 12/05/19 05:59 13:59 21:59 Intake Total 375 800 Output Total 1076 102 1 Balance -701 -102 799 Intake & Output: Intake & Output 12/05/19 12/05/19 12/05/19 05:59 13:59 21:59 Intake Total 375 800 Output Total 1076 102 1 Balance -701 -102 799 Intake: Oral 375 800 Output: Void Amount 1075 100 # of times incontinent of urine 1 2 1 Other: Meal Lunch Percent of Meal Consumed 100% Feeding Ability Independent Urine Appearance Clear Urine Color Pale Urine Odor Normal Stool Size Copious Stool Color Black Stool Consistency Loose # Voids 1 # of times incontinent of 1 Bowels General appearance: no acute distress Exam: Alert oriented morbidly obese No anxiety Nonlabored breathing Right BKA Medical - PN: Obj Da - Labs CBC & Chem 7: 12/05/19 05:25 12/05/19 05:25 Labs: Abnormal Lab Results 12/05/19 12/05/19 12/04/19 05:25 05:25 05:59 RBC 2.69 L Hgb 8.5 L Hct 25.5 L RDW 14.7 H MPV [place] % (Auto) Lymph # (Auto) Carbon Dioxide Creatinine 0.6 L Glucose 205 H 175 H Calcium 7.9 L 7.8 L Phosphorus 2.6 L 2.5 L Lactate Dehydrogenase C-Reactive Protein Total Protein 5.2 L 5.3 L Albumin 2.5 L 2.5 L Albumin/Globulin Ratio 0.9 L 0.9 L 12/04/19 12/03/19 12/03/19 05:59 06:10 06:10 RBC 2.92 L 2.88 L Hgb 9.2 L 9.1 L Hct 28.0 L 27.7 L RDW 14.8 H 14.7 H MPV 11.0 H [place] % (Auto) 13.4 H Lymph # (Auto) 1.46 L Carbon Dioxide 20 L Creatinine 0.6 L Glucose 184 H Calcium 7.5 L Phosphorus 2.6 L Lactate Dehydrogenase 270 H C-Reactive Protein Total Protein 5.0 L Albumin 2.2 L Albumin/Globulin Ratio 0.8 L 12/03/19 12/02/19 06:10 16:47 RBC Hgb 8.0 L Hct 23.2 L RDW MPV [place] % (Auto) Lymph # (Auto) Carbon Dioxide Creatinine Glucose Calcium Phosphorus Lactate Dehydrogenase C-Reactive Protein 2.2 H Total Protein Albumin Albumin/Globulin Ratio Meds: Medications Acetaminophen (Tylenol) 650 mg PO Q6HP PRN PRN Reason: PAIN/FEVER > 101 Hydrocodone Bitart/Acetaminophen ([place] 5/325mg) 1 tab PO Q4HP PRN; Protocol PRN Reason: Pain Albuterol/Ipratropium (Duoneb) 3 ml NEB Q4HP PRN PRN Reason: Shortness Of Breath Dextrose (Dextrose 50%) 0 ml IV UD PRN PRN Reason: Hypoglycemia Diagnostic Test (Pha) (Accu-Chek) 1 each FS ACHS [facility] Gabapentin (Neurontin) 600 mg PO TID [facility] Last Admin: 12/05/19 14:28 Dose: 600 mg Documented by: Glucose (Insta-Glucose) 15 gm PO PRN PRN PRN Reason: Hypoglycemia Ceftriaxone Sodium 2 gm/ (Dextrose) 50 mls @ 100 mls/hr IV DAILY [facility]; Protocol Potassium Chloride 40 meq/ (Dextrose) 520 mls @ 130 mls/hr IV UD PRN PRN Reason: Potassium < 3 Magnesium Sulfate (Magnesium Sulfate) 2 gm in 50 mls @ 50 mls/hr IV UD PRN PRN Reason: Magnesium </= 1.6 Insulin Glargine (Lantus) 25 unit SQ QAM [facility] Insulin Human Lispro (Humalog) 0 unit SQ Q4 [facility]; Protocol Lactobacillus Rhamnosus (Culturelle) 1 cap PO BID [facility] Levothyroxine Sodium (Synthroid) 250 mcg PO QAMAC [facility] Metformin HCl (Glucophage) 1,000 mg PO BIDCC [facility] Metoclopramide HCl (Reglan) 10 mg IV Q6HP PRN PRN Reason: Nausea And Vomiting Metoprolol Tartrate (Lopressor) 25 mg PO BID [facility] Morphine Sulfate (Ms Contin) 30 mg PO TID [facility]; Protocol Last Admin: 12/05/19 14:28 Dose: 30 mg Documented by: Nystatin (Nystatin Crm) 1 dose TOPICAL BID [facility] Ondansetron HCl (Zofran) 4 mg IV Q4HP PRN PRN Reason: Nausea And Vomiting Pantoprazole Sodium (Protonix) 40 mg PO BIDAC [facility] Dulaglutide [ Trulicity] 0.75 Mg Syringe 1 dose SC WEEKLY [facility] Polyethylene Glycol (Miralax) 17 gm PO DAILYP PRN PRN Reason: Constipation Potassium Chloride (Kdur) 40 meq PO UD PRN PRN Reason: Potssium is 3-3.5 Potassium Chloride (Kdur) 40 meq PO UD PRN PRN Reason: Potassium < 3 Prednisone (Prednisolone) 7.5 mg PO DAILY [facility] Pregabalin (Lyrica) 25 mg PO TID [facility] Last Admin: 12/05/19 14:28 Dose: 25 mg Documented by: Prochlorperazine (Compazine) 10 mg IV Q6HP PRN PRN Reason: Nausea And Vomiting Senna (Senokot) 2 tab PO DAILYP PRN PRN Reason: Constipation Sodium Chloride (Saline Flush) 10 ml IV Q8 [facility] Sucralfate (Carafate) 1 gm PO Q6H [facility] Tamsulosin HCl (Flomax) 0.4 mg PO DAILY [facility] Tramadol HCl (Ultram) 50 mg PO QIDP PRN PRN Reason: Pain - ABG Interpretation ABG results: 12/01/19 08:25 ABG Methemoglobin 0.1 L VBG pH 7.36 VBG pCO2 33.1 L VBG pO2 97 H VBG HCO3 18.4 L VBG Total CO2 19.5 L VBG O2 Saturation 93.5 H VBG Base Excess -6.1 L Medical - PN: A/P - Time Spent With Patient Total time spent is greater than 50% in coordination of care (as documented) at patient's floor/unit and/or counseling patient: 25 - 35 minutes (1) Urinary tract infection Status: Acute Assessment and plan: * Blood loss anemia-status post 2 units PRBC transfusion. * Upper GI bleed-surgery on board. Upper endoscopy reveals severe antrum and fundal inflammation/erosion. On Carafate plus PPI per surgery * Complicated Morganella UTI-on Rocephin per sensitivities * Septic shock secondary to complicated UTI-resolved with management per guidelines. * Weakness deconditioning and debility continue PT OT. Tolerating therapies well. Anticipate SNF transfer. * Morbid obesity with obstructive sleep apnea on currently on BiPAP * DM type II on metformin/CC diet/basal prandial insulin * Right BKA/diabetic neuropathy -pain control on gabapentin * History of CMT with chronic pain stable on gabapentin/morphine/Lyrica * Hypothyroidism on thyroxine * History of hypertension on Lopressor * BPH on Flomax * Limited code * Prophylaxis Lovenox Plan * Continue Carafate/PPI * Continue antibiotic coverage * PT OT nutrition support * Discharge planning likely in 24 hours if no evidence of further bleed Current Visit: No
[2019-12-05] MEDS ORDERED: PIPERACILLIN SODIUM/TAZOBACTAM 2.25 GM in DEXTROSE 5% IN WATER 50 ML IV SCH (16:30)
[2019-12-05] MEDS: SUCRALFATE 1 GM/10 ML ORAL.SUSP PO SCH (16:53)
[2019-12-05] MEDS ORDERED: LACTOBACILLUS 1 CAPSULE PO SCH (21:00)
[2019-12-05] MEDS ORDERED: NYSTATIN CRM 1 DOSE TUBE TOPICAL SCH (21:00)
[2019-12-06] MEDS: SUCRALFATE 1 GM/10 ML ORAL.SUSP PO SCH ×2 (00:07→06:14)
[2019-12-06] MEDS: INSULIN LISPRO 1 UNIT/0.01 ML UNIT SQ SCH (00:25)
[2019-12-06] MEDS: 0.9 % SODIUM CHLORIDE 10 ML SYRINGE IV SCH (06:14)
[2019-12-06] MEDS: PANTOPRAZOLE 40 MG PACKET PO SCH (07:23)
[2019-12-06] MEDS: metFORMIN 500 MG TABLET PO SCH (07:29)
[2019-12-06] MEDS ORDERED: INSULIN LISPRO 1 UNIT/0.01 ML UNIT SQ SCH (07:30)
[2019-12-06] MEDS ORDERED: LEVOTHYROXINE 125 MCG TABLET PO SCH (07:30)
[2019-12-06 07:31] LABS: ALT/SGPT 26 U/l (0-40); AST/SGOT 30 U/l (0-37); Albumin 2.6 gm/dL (3.2-5.2); Alkaline Phosphatase 48 U/L (39-117); Bilirubin,Direct < 0.2 mg/dL (0.0-0.3); Bilirubin,Total 0.5 mg/dL (0.0-1.0); Blood Urea Nitrogen 13 mg/dl (8-23); Calcium 8.2 mg/dl (8.6-10.4); Carbon Dioxide 21 mmol/L (22-30); Chloride 99 mmol/L (96-108); Globulin 2.7 gm/dL (2.2-3.7); Glomerular Filtration Rate 107; Glucose 207 mg/dL (70-105); Lactate Dehydrogenase 280 U/L (94-250); Phosphorous 2.8 mg/dL (2.7-4.5); Triglycerides 196 mg/dl (<150); Uric Acid 4.6 mg/dL (2.5-8.0)
[2019-12-06] MEDS: PREGABALIN 25 MG CAPSULE PO SCH (08:21)
[2019-12-06] MEDS: METOPROLOL TARTRATE 25 MG TABLET PO SCH (08:22)
[2019-12-06] MEDS: morphine 30 MG TAB.SR.12H PO SCH (08:22)
[2019-12-06] MEDS: GABAPENTIN 300 MG CAPSULE PO SCH (08:23)
--- NOTE | 2019-12-06 08:30 | Discharge Summary ---
Medical - DS: Prov Patient information: Note initiated : 12/06/19 at 8:28 am Service Date, if different from initiated Date: [] Patient: Álvaro Fernandez 64 y/o M admitted on 12/01/19 for weakness. Chief Complaint: [] Date of admission: 12/01/19 19:35 Discharge date: 12/06/19 Primary care physician: JABIER Egan Consults: 12/01/19 Consult to Physician [CONS] Stat Comment: Consulting Provider: Clarke Tucker Reason For Exam: Physician to Consult Consult to Physician [CONS] Stat Comment: Consulting Provider: Jeff Art Reason For Exam: Physician to Consult Medical - DS: Meds - Discharge Medications Prescriptions: Sucralfate [Carafate] 1 gm PO Q6H #30 oral.susp Transmission Status: Sent to [facility] 0[facility] cefTRIAXone NA/DEXTROSE,ISO [Ceftriaxone 2 gm Piggyback] 2 gm IV DAILY #2 ml Transmission Status: [facility] Pantoprazole [Protonix] 40 mg PO BIDAC #60 packet Transmission Status: [facility] Active and Home Medications: Home Medications Dulaglutide [Trulicity] 0.75 mg SC WEEKLY 12/01/19 [History Confirmed 12/01/19 Last Taken Unknown] Famotidine [Pepcid] 20 mg PO BID 12/01/19 [History Confirmed 12/01/19 Last Taken Unknown] Gabapentin [Gralise] 600 mg PO TID 12/01/19 [History Confirmed 12/01/19 Last Taken Unknown] HYDROcodone/APAP 5/325MG [[place] 5-325Mg] 1 tab PO Q4HP PRN 12/01/19 [History Confirmed 12/01/19 Last Taken Unknown] Insulin Detemir [Levemir] 25 unit SQ QAM 12/01/19 [History Confirmed 12/01/19 Last Taken Unknown] Levothyroxine [Synthroid] 250 mcg PO DAILY 12/01/19 [History Confirmed 12/02/19 Last Taken Unknown] Metoprolol Tartrate [Lopressor] 25 mg PO BID 12/01/19 [History Confirmed 12/01/19 Last Taken Unknown] Miconazole TOPICAL PRN 12/01/19 [History Last Taken 12/05/19] Ondansetron HCl [Zofran] 4 mg PO TID PRN 12/01/19 [History Confirmed 12/01/19 Last Taken Unknown] Potassium Chloride [Kdur] 20 meq PO BIDCC 12/01/19 [History Confirmed 12/01/19 Last Taken Unknown] Pregabalin [Lyrica] 25 mg PO TID 12/01/19 [History Confirmed 12/01/19 Last Taken Unknown] Saccharomyces Boulardii [Florastor] 250 mg PO BID 12/01/19 [History Confirmed 12/01/19 Last Taken Unknown] Tamsulosin [Flomax] 1 cap PO DAILY 12/01/19 [History Confirmed 12/01/19 Last Taken Unknown] metFORMIN [Glucophage] 1,000 mg PO BIDCC 12/01/19 [History Confirmed 12/01/19 Last Taken Unknown] morphine SULFATE [Morphine Sulfate ER] 30 mg PO TID 12/01/19 [History Confirmed 12/01/19 Last Taken Unknown] prednisoLONE [Millipred] 7.5 mg PO DAILY 12/01/19 [History Confirmed 12/01/19 Last Taken Unknown] traMADol [Ultram] 1 tab PO QID PRN 12/01/19 [History Confirmed 12/01/19 Last Taken Unknown] cefTRIAXone NA/DEXTROSE,ISO [Ceftriaxone 2 gm Piggyback] 2 gm IV DAILY #2 ml 12/06/19 [Rx Last Taken Unknown] Medical - DS: Hosp Hospital Course: Discharge diagnosis * Septic shock secondary to complicated UTI-resolved with management per guidelines. * Complicated Morganella UTI-on Rocephin per sensitivities * Blood loss anemia-status post 2 units PRBC transfusion. * Upper GI bleed-surgery on board. Upper endoscopy reveals severe antrum and fundal inflammation/erosion. Continue Carafate plus PPI per surgery * Weakness deconditioning and debility continue PT OT. Tolerating therapies well. Continue aggressive PT OT at SNF * Morbid obesity with obstructive sleep apnea on currently on BiPAP * DM type II on metformin/CC diet/basal prandial insulin * Right BKA/diabetic neuropathy -pain control on gabapentin * History of CMT with chronic pain stable on gabapentin/morphine/Lyrica * Hypothyroidism on thyroxine * History of hypertension on Lopressor * BPH on Flomax Brief hospital course Mr. Fernandez is a 64 year old M That about a week ago he developed some weakness some nausea did vomit which was brownish in color. Eventually started to feel a bit better and then few days ago he started getting sick to his stomach when he would eat. He reports an episode of diarrhea once each day for the past couple days described as part black and tarry. Denies taking any NSAIDs including aspirin. Currently administers insulin early this morning. Also has little bit of discomfort upon urination. In the ED he was found to have a leukocytosis. He systolic blood pressure in the 90s this morning. Lactate was 2.1. Urinalysis showed ketones leukocyte esterase and WBCs. Chest x-ray unremarkable. BUN elevated but creatinine okay. Dr. Art was contacted in the ED regarding potential upper GI bleed. Patient does have a history of peptic ulcer disease as well as a history of a dieulafoy lesion. Glucose was over 400 on admission. Venous blood gas pH 7.36. Ketones in the urine. Next as needed Pepcid but does not take regularly 12/01 No overnight events or new complaints. Blood pressure stable. Good oxygenation. Hemoglobin dropped, No bowel movements since admission. Feeling better. 12/02-status post 2 units blood transfusion. Hemoglobin at 9. Complains of abdominal cramping after having brought this morning. Improved during my visit. Due for upper endoscopy by surgery later today or tomorrow. Undergoing physical therapy. Continue existing treatment. On twice daily oral Protonix. White count normalized. Continue Rocephin. Sepsis resolved. 12/03-patient awaiting upper endoscopy. No further bloody bowels. Minimal abdominal discomfort. Currently on PPI. Hemoglobin stable at 9.2. 12/04-patient underwent upper endoscopy revealing severe inflammation of fundus and antrum without active bleed. Surgery recommends Carafate/PPI. May discharge in 24 hours if no further bleed or drop in hematocrit. Start diet advancement as per surgery. No overnight fever chills. Hemoglobin 8.5. 12/05-patient discharging to SNF. No overnight events. No concerns per staff. Continue IV Rocephin for additional 2 days. Follow-up PCP. Discharge instructions below. Discharge diagnosis: , - Time Spent with Patient Total time spent providing and/or coordinating discharge services: Greater than 30 minutes Medical - DS: Exam - Constitutional Vitals: Vital Signs Temp Pulse Resp BP Pulse Ox 12/06/19 04:00 98.8 F 78 15 98/58 96 12/06/19 00:00 98.8 F 85 16 91/54 97 12/05/19 20:00 98.8 F 98 H 20 109/70 96 12/05/19 16:00 98.7 F 104 H 16 115/63 97 12/05/19 14:49 108 H 132/83 97 12/05/19 14:34 110 H 102/52 97 12/05/19 14:18 81 118/71 95 12/05/19 14:03 83 119/71 95 12/05/19 12:00 97.7 F 88 18 115/74 97 Intake and Output 12/05/19 12/06/19 12/06/19 21:59 05:59 13:59 Intake Total 2079 100 Output Total 203 1 Balance 1877 99 Intake: Oral 2079 100 Output: Void Amount 200 # of times incontinent of urine 3 1 Other: Meal Dinner Percent of Meal Consumed 100% Feeding Ability Independent Urine Appearance Clear Clear Urine Color Bright Yellow Bright Yellow Urine Odor Normal Normal Stool Size Copious Stool Color Black Stool Consistency Liquid Watery # Bowel Movements 1 # of times incontinent of 1 Bowels Weight 322 lb 8 oz Medical - DS: Data Labs on day of discharge: Labs from last 24 hours 12/06/19 12/06/19 12/06/19 07:55 05:45 05:45 WBC Pending TNP RBC Pending TNP Hgb Pending TNP Hct Pending TNP MCV Pending TNP MCH Pending TNP MCHC Pending TNP RDW Pending TNP Plt Count Pending TNP MPV Pending TNP Sodium 132 L Potassium 4.3 Chloride 99 Carbon Dioxide 21 L Anion Gap 12.0 BUN 13 Creatinine 0.6 L GFR Calculation 107 Glucose 207 H Uric Acid 4.6 Calcium 8.2 L Phosphorus 2.8 Magnesium 1.8 Total Bilirubin 0.5 Direct Bilirubin < 0.2 GGT 16 AST 30 ALT 26 Alkaline Phosphatase 48 Lactate Dehydrogenase 280 H Total Protein 5.3 L Albumin 2.6 L Globulin 2.7 Albumin/Globulin Ratio 1.0 Triglycerides 196 H Preliminary micro results at discharge 12/01/19 12:48 Blood Culture - Preliminary Blood 12/01/19 12:56 Blood Culture - Preliminary Blood Medical - DS: A/P - Patient/Caregiver Discharge Instructions Activity: as per physical therapy, increase activity as tolerated Diet: Consistent Carbohydrate Additional Instructions: Follow-up PCP in 5 days Follow-up with surgery in 2 weeks Continue Carafate and PPI as per surgeon recommendations Continue antibiotic for additional 2 days IV Rocephin Continue aggressive bowel regimen to prevent constipation Continue fall precautions Continue aggressive PT OT evaluation and treatment at SNF. ST eval and treatment if indicated High protein calorie supplements All meals on chair sitting upright at 90 degrees to prevent aspiration Return to ER if worsening fever chills shortness of breath, diarrhea, bleeding Review risk and side effect profile of medications including antibiotics. Side effect may include mild to severe reaction including rash, diarrhea, cdiff and even which can be prevented by close follow-up with PCP and monitoring for side effects Refrain from smoking and alcohol Continue diet and activity as advised Discussed importance of medication adherence Please review medication list with patient prior to discharge Please schedule follow-up with PCP/Providers prior to discharge and provide printouts Prescriptions: Sucralfate [Carafate] 1 gm PO Q6H #30 oral.susp Transmission Status: Sent to [facility] cefTRIAXone NA/DEXTROSE,ISO [Ceftriaxone 2 gm Piggyback] 2 gm IV DAILY #2 ml Transmission Status: Pending to [facility] 0[facility] Pantoprazole [Protonix] 40 mg PO BIDAC #60 packet Transmission Status: Sent to [facility] - Problem Maintenance (1) Urinary tract infection Status: Acute - Follow up Plan Follow up with: Srinivasa Wagner ARNP [Primary Care Provider] - Disposition: Xfer [facility] Prognosis: Rehab Potential: Fair I certify that the patient requires SNF services: Yes Overall status at discharge: patient is progressing back to baseline
[2019-12-06] MEDS ORDERED: prednisoLONE 15 MG/5 ML ORAL SOL PO SCH (09:00)
[2019-12-06] MEDS ORDERED: cefTRIAXone 2 GM in DEXTROSE 5% IN WATER 50 ML IV SCH (09:00)
[2019-12-06] MEDS ORDERED: INSULIN GLARGINE, HUMAN 1 UNIT/0.01 ML SQ SCH (09:00)
[2019-12-06] MEDS ORDERED: TAMSULOSIN 0.4 MG CAPSULE PO SCH (09:00)
[2019-12-06 09:01] LABS: Basophils # (Auto) 0.03 K/mcL (0.00-0.30); Basophils % (Auto) 0.5 % (0.0-2.0); Eosinophils # (Auto) 0.11 K/mcL (0.00-0.70); Eosinophils % (Auto) 1.7 % (0.0-7.0); Granulocytes % (Auto) 61.7 % (38.0-78.0); Hematocrit 26.3 % (40.1-51.0); Hemoglobin 8.6 g/dL (13.7-17.5); Lymphocytes # (Auto) 1.69 K/mcL (1.50-4.80); Lymphocytes % (Auto) 26.2 % (15.5-49.0); Mean Cell Volume 95.6 fL (80.0-100.0); Mean Corpuscular HGB Conc 32.7 g/dL (31.0-36.0); Mean Platelet Volume 10.6 fL (7.4-10.4); Monocytes # (Auto) 0.64 K/mcL (0.10-0.90); Monocytes % (Auto) 9.9 % (1.0-12.0); Platelet Count 239 K/mcL (140-440); RBC 2.75 M/mcL (4.63-6.08); Red Cell Distribution Width 15.1 % (11.5-14.5); WBC 6.4 K/mcL (4.50-11.00)
[2019-12-07] MEDS ORDERED: DULAGLUTIDE 0.75 MG SC SCH ×2 (09:00)
--- NOTE | 2019-12-09 12:40 | Surgical Pathology Report ---
HISTOLOGY SPECIMEN MICROSCOPIC DIAGNOSIS SPECIMEN A - STOMACH, BIOPSY: -- GASTRIC ANTRAL MUCOSA WITH MILD CHRONIC INFLAMMATION AND BACKGROUND FEATURES CONSISTENT WITH REACTIVE GASTROPATHY. -- INTESTINAL METAPLASIA, FOCAL; NEGATIVE FOR DYSPLASIA. -- NO HELICOBACTER ORGANISMS IDENTIFIED ON ALCIAN YELLOW STAIN (ADEQUATE TECHNICAL CONTROL). SPECIMEN B - STOMACH, FUNDUS, BIOPSY: -- CHRONIC GASTRITIS, MILD, WITHOUT ACTIVITY. -- NO HELICOBACTER ORGANISMS IDENTIFIED ON ALCIAN YELLOW STAIN (ADEQUATE TECHNICAL CONTROL). (DMT:sln) CLINICAL HISTORY Upper GI bleeding. PROCEDURAL IMPRESSION Acute severe fundic and antral gastritis; rule out H. pylori. GROSS DESCRIPTION Specimen A: Received in formalin labeled A and designated as LORENZO on the requisition, are two fragments of woodruff-whyte tissue ranging in size from 0.3 to 0.5 cm. Totally submitted - one cassette. Specimen B: Received in formalin labeled fundus, are two fragments of woodruff-whyte tissue ranging in size from 0.3 to 0.4 cm. Totally submitted - one cassette. (KGW:adj) Electronically Signed by: Blayne Cisneros M.D.
--- NOTE | 2019-12-09 16:18 | Operative Note ---
DATE OF OPERATION: 12/05/2019 PREOPERATIVE DIAGNOSIS: Upper GI bleeding. POSTOPERATIVE DIAGNOSES: Acute severe fundic and antral gastritis. PROCEDURE: Esophagogastroduodenoscopy with CLOtest and fundic biopsies. SURGEON: Jeff Art M.D. FINDINGS: Severe inflammation of the fundus and antrum, but no active bleeding. DESCRIPTION OF PROCEDURE: Under general anesthesia, the patient turned to the left lateral decubitus position. Bite block was placed. Timeout procedure was carried out as per protocol. Scope was introduced through the bite block into the retropharynx and esophagus. The esophagus was normal down to the GE junction. There was no residual blood or substance in the esophagus. The GE junction was unremarkable. In the fundus of the stomach, there was moderately-severe inflammation which encompassed probably about 50% of the fundus. The body of the stomach showed mild inflammation with thickening of the fold. The antrum showed severe inflammation but no active bleeding. Pylorus was unremarkable and duodenum was unremarkable. Scope was pulled back. Biopsies of the antrum and fundus were taken. There was no major bleeding. Specimens were sent for CLOtest. The stomach was irrigated after which the air was suctioned free. Scope was removed. The patient tolerated the procedure well. He was awakened, transferred to a bed, and taken to the postanesthetic care unit in stable, satisfactory condition. LCS:faisal Job ID: [id number] Doc ID: [id number] Jeff Art M.D.
== END 2019-12-06 11:20 | DRG 871 ==
LOC: ED 08:09 → ICU 19:30 → MEDSUR 12-03 16:15
PROVIDERS: ADMIT Internal Medicine; ATTEND Internal Medicine

== ENCOUNTER 2020-02-02 15:53 | Inpatient (IN) ==
[2020-02-02] MEDS ORDERED: LACTATED RINGERS 1,000 ML IV ONE ×2 (16:24→18:57)
--- NOTE | 2020-02-02 16:28 | Emergency Department Note ---
Dizziness HPI - General Chief Complaint: Dizziness Stated Complaint: dizzy Time Seen by Provider: 02/02/20 16:03 Source: patient Mode of arrival: EMS Limitations: no limitations - History of Present Illness HPI Narrative: This patient has had a lightheaded dizzy sensation today and thought his blood pressure at home was low and in the emergency room here it is also low with about a 70 systolic. He has had GI bleeding in the past but has not noted any black stools recently. He spends a lot of time in a wheelchair and he says he is developed a couple of pressure ulcers in the last several days. No abdominal pain. - Related Data Home Medications Medication Instructions Recorded Confirmed Dulaglutide [Trulicity] 0.75 mg SC WEEKLY 12/01/19 02/02/20 Famotidine [Pepcid] 20 mg PO BID 12/01/19 02/02/20 Gabapentin [Gralise] 600 mg PO TID 12/01/19 02/02/20 HYDROcodone/APAP 5/325MG [[place] 1 tab PO Q4HP PRN 12/01/19 02/02/20 5-325Mg] Insulin Detemir [Levemir] 25 unit SQ QAM 12/01/19 02/02/20 Levothyroxine [Synthroid] 250 mcg PO DAILY 12/01/19 02/02/20 Miconazole 0.5 tube TOPICAL DAILY PRN 12/01/19 02/02/20 Ondansetron HCl [Zofran] 4 mg PO TID PRN 12/01/19 02/02/20 Potassium Chloride [Kdur] 20 meq PO BIDCC 12/01/19 02/02/20 Tamsulosin [Flomax] 1 cap PO DAILY 12/01/19 02/02/20 metFORMIN [Glucophage] 1,000 mg PO BIDCC 12/01/19 02/02/20 Carafate 1 gm PO Q6H 02/02/20 02/02/20 Lisinopril [Zestril] 5 mg PO DAILY 02/02/20 02/02/20 Pantoprazole [Protonix] 40 mg PO BID 02/02/20 02/02/20 prednisoLONE 7.5 mg PO DAILY 02/02/20 02/02/20 Previous Rx's Medication Instructions Recorded Pregabalin [Lyrica] 25 mg PO TID #15 cap 12/06/19 morphine SULFATE [Morphine Sulfate 30 mg PO TID #15 tablet.er 12/06/19 ER] traMADol [Ultram] 50 mg PO QIDP PRN #15 tab 12/06/19 Allergies Allergy/AdvReac Type Severity Reaction Status Date / Time No Known Drug Allergies Allergy Verified 12/19/19 14:47 Review of Systems All systems ED: reviewed and negative except as stated. Past Medical History - Past Medical History Medical history: Reports: DM, hypothyroidism, obesity, peripheral artery disease, other (BPH, Pcvrous-Chzmh-Uwwvw, right below-knee amputation) Surgical history ED: Reports: cholecystectomy, orthopedic, other, other (status post BKA right leg, multiple endoscopy) - Social History smoking status: Never smoker Alcohol use: Reports: None Drug use: Reports: none Physical Exam He has 2 tiny developing pressure ulcers in the perineal and tailbone region Limitations: no limitations General appearance: alert Head: atraumatic Eye: Present: normal appearance ENT: Present: normal exam Neck: Present: normal inspection Chest: Present: normal inspection Respiratory: Present: normal lung sounds bilaterally Cardiovascular: Present: regular rate, normal rhythm, normal heart sounds Abdominal: Present: soft. Absent: distention, tenderness Rectal: Present: normal inspection, normal rectal tone, decreased rectal tone, heme (-) stool. Absent: black stool Neurological: Present: alert Psychiatric: Present: normal affect Skin: Present: warm, dry Course Vital Signs Temperature 99.0 F 02/02/20 15:55 Pulse Rate 95 H 02/02/20 15:55 Respiratory Rate 20 02/02/20 15:55 Blood Pressure 129/109 02/02/20 15:55 Pulse Oximetry (%) 99 02/02/20 15:55 Temperature 98.3 F 02/03/20 00:01 Pulse Rate 61 02/03/20 01:45 Respiratory Rate 15 02/03/20 01:45 Blood Pressure 137/72 02/03/20 01:31 Pulse Oximetry (%) 94 02/03/20 01:45 Dizziness - MDM Narrative Medical decision making narrative: Patient's lab work was worrisome for sepsis with hypotension. He did not have evidence of GI bleed. I discussed the case with Dr. Robert who admitted the patient to the hospital. - Lab Data Lab results reviewed: Yes I reviewed the patient's lab results. Result diagrams: 02/03/20 04:00 02/03/20 04:00 Lab Results 02/02/20 02/02/20 02/02/20 Range/Units 16:10 16:10 16:10 WBC 9.6 (4.50-11.00) K/mcL RBC 4.69 (4.63-6.08) M/mcL Hgb 11.1 L (13.7-17.5) g/dL Hct 36.1 L (40.1-51.0) % MCV 77.0 L (80.0-100.0) fL MCH 23.7 L (26.0-34.0) pg MCHC 30.7 L (31.0-36.0) g/dL RDW 17.2 H (11.5-14.5) % Plt Count 388 (140-440) K/mcL MPV 12.1 H (7.4-10.4) fL Gran % 71.0 (38.0-78.0) % Lymph % (Auto) 19.6 (15.5-49.0) % [place] % (Auto) 7.9 (1.0-12.0) % Eos % (Auto) 1.0 (0.0-7.0) % Baso % (Auto) 0.5 (0.0-2.0) % Gran # 6.81 (1.80-8.00) K/mcL Lymph # (Auto) 1.88 (1.50-4.80) K/mcL [place] # (Auto) 0.76 (0.10-0.90) K/mcL Eos # (Auto) 0.10 (0.00-0.70) K/mcL Baso # (Auto) 0.05 (0.00-0.30) K/mcL ABG Methemoglobin (0.4-1.5) % VBG pH (7.32-7.42) U VBG pCO2 (41.0-51.0) mmHg VBG pO2 (25-40) mmHg VBG HCO3 (24.0-28.0) mmol/L VBG Total CO2 (25.0-29.0) mmol/L VBG O2 Saturation (40.0-70.0) % VBG Base Excess (-2.0-2.0) VBG Lactic Acid 5.5 H* (0.5-2.0) mmol/L Carboxyhemoglobin (0.0-1.5) % THgb Total Hemoglobin (13.5-16.5) gm/dL O2 Delivery Level Sodium 131 L (133-145) mmol/L Potassium 4.9 (3.3-5.1) mmol/L Chloride 92 L (96-108) mmol/L Carbon Dioxide 19 L (22-30) mmol/L Anion Gap 20.0 H (8-16) BUN 18 (8-23) mg/dl Creatinine 1.2 (0.7-1.2) mg/dl GFR Calculation 64 Glucose 214 H (70-105) mg/dL Osmolality (280-300) mOSM/kg Calcium 9.4 (8.6-10.4) mg/dl Total Bilirubin 0.5 (0.0-1.0) mg/dL AST 21 (0-37) U/l ALT 22 (0-40) U/l Alkaline Phosphatase 78 (39-117) U/L Total Protein 7.2 (5.9-8.4) gm/dL Albumin 3.7 (3.2-5.2) gm/dL Globulin 3.5 (2.2-3.7) gm/dL Albumin/Globulin Ratio 1.1 (1.0-2.3) Urine Color Urine Appearance Urine pH (5.0-9.0) Ur Specific [place] (1.000-1.035) Urine Protein (NEG) mg/dL Urine Glucose (UA) (NEG) mg/dL Urine Ketones (NEG) mg/dL Urine Occult Blood (<0.03) mg/dL Urine Nitrate (NEG) Urine Bilirubin (NEG) mg/dL Urine Urobilinogen (NEG) mg/dL Ur Leukocyte Esterase (NEG) /uL Urine RBC (0-1) /hpf Urine WBC (0-4) /hpf Ur Squamous Epith Cells (0-4) /hpf Urine Bacteria (0) /hpf Hyaline Casts (0-2) /lpf Urine Mucus (0) /hpf Ur Culture Indicated? Urine Osmolality (80-1000) mOsm/kg 02/02/20 02/02/20 02/02/20 Range/Units 16:10 17:57 17:57 WBC (4.50-11.00) K/mcL RBC (4.63-6.08) M/mcL Hgb (13.7-17.5) g/dL Hct (40.1-51.0) % MCV (80.0-100.0) fL MCH (26.0-34.0) pg MCHC (31.0-36.0) g/dL RDW (11.5-14.5) % Plt Count (140-440) K/mcL MPV (7.4-10.4) fL Gran % (38.0-78.0) % Lymph % (Auto) (15.5-49.0) % [place] % (Auto) (1.0-12.0) % Eos % (Auto) (0.0-7.0) % Baso % (Auto) (0.0-2.0) % Gran # (1.80-8.00) K/mcL Lymph # (Auto) (1.50-4.80) K/mcL [place] # (Auto) (0.10-0.90) K/mcL Eos # (Auto) (0.00-0.70) K/mcL Baso # (Auto) (0.00-0.30) K/mcL ABG Methemoglobin (0.4-1.5) % VBG pH (7.32-7.42) U VBG pCO2 (41.0-51.0) mmHg VBG pO2 (25-40) mmHg VBG HCO3 (24.0-28.0) mmol/L VBG Total CO2 (25.0-29.0) mmol/L VBG O2 Saturation (40.0-70.0) % VBG Base Excess (-2.0-2.0) VBG Lactic Acid (0.5-2.0) mmol/L Carboxyhemoglobin (0.0-1.5) % THgb Total Hemoglobin (13.5-16.5) gm/dL O2 Delivery Level Sodium (133-145) mmol/L Potassium (3.3-5.1) mmol/L Chloride (96-108) mmol/L Carbon Dioxide (22-30) mmol/L Anion Gap (8-16) BUN (8-23) mg/dl Creatinine (0.7-1.2) mg/dl GFR Calculation Glucose (70-105) mg/dL Osmolality 283 (280-300) mOSM/kg Calcium (8.6-10.4) mg/dl Total Bilirubin (0.0-1.0) mg/dL AST (0-37) U/l ALT (0-40) U/l Alkaline Phosphatase (39-117) U/L Total Protein (5.9-8.4) gm/dL Albumin (3.2-5.2) gm/dL Globulin (2.2-3.7) gm/dL Albumin/Globulin Ratio (1.0-2.3) Urine Color Yellow Urine Appearance Cloudy Urine pH 6.0 (5.0-9.0) Ur Specific [place] 1.025 (1.000-1.035) Urine Protein 100 A (NEG) mg/dL Urine Glucose (UA) 50 A (NEG) mg/dL Urine Ketones 5/tr A (NEG) mg/dL Urine Occult Blood Neg (<0.03) mg/dL Urine Nitrate Neg (NEG) Urine Bilirubin Neg (NEG) mg/dL Urine Urobilinogen Neg (NEG) mg/dL Ur Leukocyte Esterase 250 A (NEG) /uL Urine RBC 13 H (0-1) /hpf Urine WBC > 182 H (0-4) /hpf Ur Squamous Epith Cells 0 (0-4) /hpf Urine Bacteria 0 (0) /hpf Hyaline Casts 22 H (0-2) /lpf Urine Mucus Many A (0) /hpf Ur Culture Indicated? Yes Urine Osmolality 600 (80-1000) mOsm/kg 02/02/20 Range/Units 20:30 WBC (4.50-11.00) K/mcL RBC (4.63-6.08) M/mcL Hgb (13.7-17.5) g/dL Hct (40.1-51.0) % MCV (80.0-100.0) fL MCH (26.0-34.0) pg MCHC (31.0-36.0) g/dL RDW (11.5-14.5) % Plt Count (140-440) K/mcL MPV (7.4-10.4) fL Gran % (38.0-78.0) % Lymph % (Auto) (15.5-49.0) % [place] % (Auto) (1.0-12.0) % Eos % (Auto) (0.0-7.0) % Baso % (Auto) (0.0-2.0) % Gran # (1.80-8.00) K/mcL Lymph # (Auto) (1.50-4.80) K/mcL [place] # (Auto) (0.10-0.90) K/mcL Eos # (Auto) (0.00-0.70) K/mcL Baso # (Auto) (0.00-0.30) K/mcL ABG Methemoglobin 0.3 L (0.4-1.5) % VBG pH 7.46 H (7.32-7.42) U VBG pCO2 33.3 L (41.0-51.0) mmHg VBG pO2 120 H (25-40) mmHg VBG HCO3 23.0 L (24.0-28.0) mmol/L VBG Total CO2 24.0 L (25.0-29.0) mmol/L VBG O2 Saturation 93.8 H (40.0-70.0) % VBG Base Excess -0.5 (-2.0-2.0) VBG Lactic Acid (0.5-2.0) mmol/L Carboxyhemoglobin 4.8 H (0.0-1.5) % THgb Total Hemoglobin 9.7 L (13.5-16.5) gm/dL O2 Delivery Level Not Reportable Sodium (133-145) mmol/L Potassium (3.3-5.1) mmol/L Chloride (96-108) mmol/L Carbon Dioxide (22-30) mmol/L Anion Gap (8-16) BUN (8-23) mg/dl Creatinine (0.7-1.2) mg/dl GFR Calculation Glucose (70-105) mg/dL Osmolality (280-300) mOSM/kg Calcium (8.6-10.4) mg/dl Total Bilirubin (0.0-1.0) mg/dL AST (0-37) U/l ALT (0-40) U/l Alkaline Phosphatase (39-117) U/L Total Protein (5.9-8.4) gm/dL Albumin (3.2-5.2) gm/dL Globulin (2.2-3.7) gm/dL Albumin/Globulin Ratio (1.0-2.3) Urine Color Urine Appearance Urine pH (5.0-9.0) Ur Specific [place] (1.000-1.035) Urine Protein (NEG) mg/dL Urine Glucose (UA) (NEG) mg/dL Urine Ketones (NEG) mg/dL Urine Occult Blood (<0.03) mg/dL Urine Nitrate (NEG) Urine Bilirubin (NEG) mg/dL Urine Urobilinogen (NEG) mg/dL Ur Leukocyte Esterase (NEG) /uL Urine RBC (0-1) /hpf Urine WBC (0-4) /hpf Ur Squamous Epith Cells (0-4) /hpf Urine Bacteria (0) /hpf Hyaline Casts (0-2) /lpf Urine Mucus (0) /hpf Ur Culture Indicated? Urine Osmolality (80-1000) mOsm/kg Disposition Pt seen by HOURLY CAREGIVER/PA only: No Clinical Impression: Sepsis Disposition: Xfer As Inpt ([facility])
[2020-02-02 16:47] LABS: Basophils # (Auto) 0.05 K/mcL (0.00-0.30); Basophils % (Auto) 0.5 % (0.0-2.0); Hematocrit 36.1 % (40.1-51.0); Hemoglobin 11.1 g/dL (13.7-17.5); Lymphocytes # (Auto) 1.88 K/mcL (1.50-4.80); Lymphocytes % (Auto) 19.6 % (15.5-49.0); Mean Corpuscular HGB Conc 30.7 g/dL (31.0-36.0); Mean Platelet Volume 12.1 fL (7.4-10.4); Monocytes # (Auto) 0.76 K/mcL (0.10-0.90); Monocytes % (Auto) 7.9 % (1.0-12.0); Platelet Count 388 K/mcL (140-440); RBC 4.69 M/mcL (4.63-6.08); Red Cell Distribution Width 17.2 % (11.5-14.5); WBC 9.6 K/mcL (4.50-11.00)
[2020-02-02 16:57] LABS: ALT/SGPT 22 U/l (0-40); AST/SGOT 21 U/l (0-37); Albumin 3.7 gm/dL (3.2-5.2); Albumin/Globulin Ratio 1.1 (1.0-2.3); Alkaline Phosphatase 78 U/L (39-117); Bilirubin,Total 0.5 mg/dL (0.0-1.0); Blood Urea Nitrogen 18 mg/dl (8-23); Calcium 9.4 mg/dl (8.6-10.4); Carbon Dioxide 19 mmol/L (22-30); Globulin 3.5 gm/dL (2.2-3.7); Glomerular Filtration Rate 64; Glucose 214 mg/dL (70-105)
[2020-02-02 17:04] LABS: Chloride 92 mmol/L (96-108)
[2020-02-02] MEDS ORDERED: morphine 30 MG TAB.SR.12H PO ONE (18:20)
[2020-02-02 18:24] LABS: Appearance,Urine CLOUDY; Bacteria,Urine 0 /hpf (0); Bilirubin,Urine NEG (NEG); Color,Urine YELLOW; Culture Indicated,Urine YES; Glucose,Urine (UA) 50 mg/dL (NEG); Ketones,Urine 5/TR mg/dL (NEG); Leukocyte Esterase,Urine 250 /uL (NEG); Mucus,Urine MANY /hpf (0); Nitrate,Urine NEG (NEG); Protein,Urine 100 mg/dL (NEG); Specific Gravity,Urine 1.025 (1.000-1.035); Urine Blood NEG mg/dL (<0.03); Urine Hyaline Cast 22 /lpf (0-2); Urine RBC 13 /hpf (0-1); Urine Squamous Epithelial Cell 0 /hpf (0-4); Urine WBC > 182 /hpf (0-4); Urobilinogen,Urine NEG (NEG)
[2020-02-02] MEDS ORDERED: PIPERACILLIN SODIUM/TAZOBACTAM 3.375 GM in DEXTROSE 5% IN WATER 50 ML IV ONE (18:38)
[2020-02-02] MEDS ORDERED: LEVOFLOXACIN 750 MG/150 ML BAG IV ONE (18:38)
[2020-02-02] MEDS ORDERED: VANCOMYCIN 1,000 MG in 0.9 % SODIUM CHLORIDE 250 ML IV SCH (18:45)
--- NOTE | 2020-02-02 19:50 | Cat Scan Report ---
CLINICAL INFORMATION: Sepsis COMPARISON: Abdomen and pelvic CT 11/07/2009 TECHNIQUE: Enteric contrast was utilized. 80 cc of Isovue-370 were injected intravenously, and 50 seconds later 2.5 mm helical slices were obtained from the lung apices through the subtrochanteric regions of the femurs. Following reconstruction, 2.5 mm sagittal, coronal and axial reformatted images were processed and reviewed at multiple windows and levels. 7 mm MIP reconstructions were obtained through the lungs to optimize nodule detection.The exam was performed using radiation dose optimization techniques including, but not limited to, automated exposure control, adjustment of the mA and/or kV according to patient size and use of iterative reconstruction technique. FINDINGS: Pulmonary parenchymal windows show the lungs are clear. There are no effusions. Mediastinal windows show the heart is grossly normal in size with scattered calcific plaque in the coronary arteries. The noncontrast pulmonary arteries and thoracic aorta are normal in diameter. There is no adenopathy in the mediastinal, hilar or axillary regions. The esophagus is grossly normal. The thyroid is diminutive but otherwise normal Abdominal images show the gallbladder is surgically absent. Intrahepatic and common bile ducts are normal: CBD is 5 mm. The pancreas is moderately atrophic - a new finding from the 2010 CT. Noncontrast liver spleen and aorta are normal in size, configuration and attenuation without focal lesion. Scattered renal lesions are appreciated: 14 mm low-attenuation lesion posterior cortex mid right kidney, 9 mm low-attenuation lesion anterior cortex mid left kidney, 16 mm low-attenuation lesion lateral cortex inferior pole left kidney, a 14 the high attenuation lesion anterior cortex inferior pole left kidney and a 9 mm low-attenuation lesion inferior pole left kidney. A few of these were present on the previous exam, however, most are new or increased in size. The no free air, free fluid or adenopathy. Prostate and seminal vesicles are normal. Urinary bladder is grossly normal. Few sigmoid diverticuli appreciated but no evidence of diverticulitis. The remaining colon, appendix, small bowel and large bowel are normal. The anterior abdominal wall musculature is atrophic. Bone windows moderate old compression fractures throughout the lumbar spine. IMPRESSION: 1. No evidence of infection.. 2. Scattered renal lesions which are likely cysts - suggest renal ultrasound. 3. Moderate pancreatic atrophy progressing considerably since [address] 4. Moderate compression fractures of the lumbar spine likely chronic. There were not seen on the remote [address] CT. 5. Marked atrophy of the anterior abdominal wall musculature allowing for protuberance of the mesenteric content. This has progressed Interpreted and Authenticated by: Jl Lazo 02/02/20
--- NOTE | 2020-02-02 20:23 | Internal Med History&Physical ---
Medical - H&P: [facility] Patient information: Note initiated : 02/02/20 at 8:16 pm Service Date, if different from initiated Date: [] Patient: Álvaro Fernandez a 64 y/o M admitted on for dizzy. Chief Complaint: [] Chief complaint: Dizziness and weakness History of present illness: Mr. Fernandez is a 64 year old M with a complex past medical history of morbid obesity/CAD/PVD/right BKA/KARO on BiPAP/DM type II/recent hospitalization for GI bleed His baseline state of health until 2 days prior to presentation started noting increasing weakness/fatigue. This morning he started experiencing dizziness a nd lightheadedness and symptoms were similar to the prior episode of GI bleed. He felt lightheaded with low blood pressures. With increasing concerns he presents to the ER for initial work-up was consistent with blood pressures in 60s and severe sepsis with pyuria,, acute renal failure with creatinine 1.2, lactic acid 5.5. Patient was promptly started on antibiotics after blood cultures were drawn. Crystalloids were administered. Patient was started on vasopressors. Blood pressure improved slightly low 80s. Hospital service was consulted for emergent vascular access initiation and stabilization/admission for septic shock. At time evaluation patient is diaphoretic. Able to answer some of the questions. Systolics around 80s. Emergent central line access secured in association with anesthesia. Patient started on crystalloid/antibiotics and pressors. Patient will be transferred to ICU. Patient denies fever, diarrhea, bloody stool, chest pain, myalgias shaking chills. Denies sick contacts or recent changes in medications. Review of systems 10 point review system was performed and is negative except for ones cussed above Medical - H&P: PMH Medical history: Obstructive sleep apnea on BiPAP machine at night Morbid obesity Diabetes mellitus Hypothyroidism Right BKA as complication diabetes BPH Hypertension History of GERD/peptic ulcer disease/Dieulafoy lesion Neuropathy Chronic pain Surgical history: Right BKA Cholecystectomy Pertinent family history: Both parents with heart disease Social history: Wheelchair-bound since 2004 Lives with brother Smoking status: Never smoker Medical - H&P: Meds Home Medications Medication Instructions Recorded Confirmed Type Dulaglutide [Trulicity] 0.75 mg SC WEEKLY 12/01/19 02/02/20 History Famotidine [Pepcid] 20 mg PO BID 12/01/19 02/02/20 History Gabapentin [Gralise] 600 mg PO TID 12/01/19 02/02/20 History HYDROcodone/APAP 5/325MG [[place] 1 tab PO Q4HP PRN 12/01/19 02/02/20 History 5-325Mg] Insulin Detemir [Levemir] 25 unit SQ QAM 12/01/19 02/02/20 History Levothyroxine [Synthroid] 250 mcg PO DAILY 12/01/19 02/02/20 History Miconazole 0.5 tube TOPICAL DAILY PRN 12/01/19 02/02/20 History Ondansetron HCl [Zofran] 4 mg PO TID PRN 12/01/19 02/02/20 History Potassium Chloride [Kdur] 20 meq PO BIDCC 12/01/19 02/02/20 History Tamsulosin [Flomax] 1 cap PO DAILY 12/01/19 02/02/20 History metFORMIN [Glucophage] 1,000 mg PO BIDCC 12/01/19 02/02/20 History Pregabalin [Lyrica] 25 mg PO TID #15 cap 12/06/19 02/02/20 Rx morphine SULFATE [Morphine Sulfate 30 mg PO TID #15 tablet.er 12/06/19 02/02/20 Rx ER] traMADol [Ultram] 50 mg PO QIDP PRN #15 tab 12/06/19 02/02/20 Rx Carafate 1 gm PO Q6H 02/02/20 02/02/20 History Lisinopril [Zestril] 5 mg PO DAILY 02/02/20 02/02/20 History Pantoprazole [Protonix] 40 mg PO BID 02/02/20 02/02/20 History prednisoLONE 7.5 mg PO DAILY 02/02/20 02/02/20 History Allergies Allergy/AdvReac Type Severity Reaction Status Date / Time No Known Drug Allergies Allergy Verified 12/19/19 14:47 Medical - H&P: Exam - Constitutional Vitals: Temp Pulse Resp BP Pulse Ox 99.0 F 75 18 82/46 94 02/02/20 15:55 02/02/20 18:47 02/02/20 19:31 02/02/20 19:31 02/02/20 18:47 General appearance: morbidly obese Exam: Head normocephalic oral cavity dry No ear nose discharge Eye movement symmetrical Neck no lymphadenopathy S1-S2 regular rhythm ESM grade 1 Diminished breath sounds bases Abdomen soft nontender Left lower extremity no cyanosis clubbing, right BKA Skin no suspicious lesion other than cold clammy extremity Psych anxious diaphoretic fatigued Neuro respond to commands but higher function could not be checked Medical - H&P: Reslt - Labs CBC & Chem 7: 02/03/20 04:00 02/03/20 04:00 Labs: Short CBC 02/02/20 Range/Units 16:10 WBC 9.6 (4.50-11.00) K/mcL Hgb 11.1 L (13.7-17.5) g/dL Hct 36.1 L (40.1-51.0) % Plt Count 388 (140-440) K/mcL BMP 02/02/20 16:10 Sodium 131 L Potassium 4.9 Chloride 92 L Carbon Dioxide 19 L BUN 18 Creatinine 1.2 Glucose 214 H Calcium 9.4 Liver Function 02/02/20 Range/Units 16:10 Total Bilirubin 0.5 (0.0-1.0) mg/dL AST 21 (0-37) U/l ALT 22 (0-40) U/l Alkaline Phosphatase 78 (39-117) U/L Albumin 3.7 (3.2-5.2) gm/dL Urine 02/02/20 Range/Units 17:57 Urine Color Yellow Urine Appearance Cloudy Urine pH 6.0 (5.0-9.0) Ur Specific [place] 1.025 (1.000-1.035) Urine Protein 100 A (NEG) mg/dL Urine Glucose (UA) 50 A (NEG) mg/dL Medical - H&P: A/P (1) Septic shock Current visit: Yes Status: Acute * Septic shock with multiorgan dysfunction. Continue aggressive management per guidelines with pressors/crystalloids/antibiotics/venous lactate and central venous oxygen sats * Complicated UTI-broad antibiotic coverage CT abdomen no evidence of obstructive uropathy. * Acute renal failure-secondary to sepsis endorgan dysfunction * Hyponatremia-every 4 sodium checks. Urine and serum osmolality * Weakness deconditioning and debility continue PT OT. Tolerating therapies well. Anticipate SNF transfer. * Morbid obesity with obstructive sleep apnea, start home CPAP * DM type II on metformin/CC diet/basal prandial insulin/sitagliptin * Right BKA/diabetic neuropathy -continue PT OT/pain control on gabapentin * History of CMT with chronic pain stable on gabapentin/morphine/Lyrica * Hypothyroidism start thyroxine * History of hypertension on Lopressor * BPH on Flomax * Limited code * Prophylaxis Lovenox Plan * Inpatient ICU admission in light of septic shock with multiple endorgan dysfunction * Vasopressors/venous lactate trending central venous access * Keep map at goal * Central venous oxygen sats * Broad antibiotic coverage * Monitor renal function * 4 hours sodium levels * PT OT nutrition support Critical time spent in excess of 75 minutes on management of septic shock/securing central venous access,/vasopressor management/discussion with care providers and physicians. The above-mentioned critical care time was in excess of time spent on history and physical
[2020-02-02 21:07] LABS: ABG Methemoglobin 0.3 % (0.4-1.5); Total Hemoglobin 9.7 gm/dL (13.5-16.5); VBG Base Excess -0.5 (-2.0-2.0); VBG Oxygen Saturation 93.8 % (40.0-70.0); VBG PCO2 33.3 mmHg (41.0-51.0); VBG PH 7.46 U (7.32-7.42); VBG PO2 120 mmHg (25-40)
[2020-02-02] MEDS ORDERED: POTASSIUM CHLORIDE 40 MEQ in DEXTROSE 5% IN WATER 500 ML IV PRN (21:33)
[2020-02-02] MEDS ORDERED: 0.9 % SODIUM CHLORIDE 1,000 ML IV SCH (21:33)
[2020-02-02] MEDS ORDERED: DEXTROSE 50% 50 ML VIAL IV PRN (21:33)
[2020-02-02] MEDS ORDERED: MELATONIN 3 MG TABLET PO PRN (21:33)
[2020-02-02] MEDS ORDERED: BISACODYL 10 MG SUPP.RECT PR PRN (21:33)
[2020-02-02] MEDS ORDERED: DEXTROSE 31 GM ORAL.SUSP PO PRN (21:33)
[2020-02-02] MEDS ORDERED: ACETAMINOPHEN 650 MG/65 ML BOTTLE IV PRN (21:33)
[2020-02-02] MEDS ORDERED: ONDANSETRON 4 MG ODT TABLET SL PRN (21:33)
[2020-02-02] MEDS ORDERED: ONDANSETRON 4 MG/2 ML VIAL IV PRN (21:33)
[2020-02-02] MEDS ORDERED: POTASSIUM CHLORIDE 20 MEQ PACKET PO PRN (21:33)
[2020-02-02] MEDS ORDERED: ACETAMINOPHEN 325 MG TABLET PO PRN (21:33)
[2020-02-02] MEDS: 0.9 % SODIUM CHLORIDE 1,000 ML IV SCH (22:13)
[2020-02-02] MEDS: SENNOSIDES/DOCUSATE SODIUM 1 TAB TABLET PO SCH (22:33)
[2020-02-02] MEDS: HEPARIN 5,000 UNIT/ML VIAL SQ SCH (22:33)
[2020-02-02] MEDS: DOCUSATE SODIUM 100 MG CAPSULE PO SCH (22:33)
[2020-02-02] MEDS: INSULIN LISPRO 1 UNIT/0.01 ML UNIT SQ SCH (22:34)
[2020-02-02] MEDS: 0.9 % SODIUM CHLORIDE 10 ML SYRINGE IV SCH (22:34)
[2020-02-02] MEDS ORDERED: HYDROcodone/APAP 5/325MG TABLET PO PRN (23:08)
[2020-02-02] MEDS ORDERED: NOREPINEPHRINE BITARTRATE 4 MG/4 ML VIAL IV ONE (23:10)
[2020-02-02] MEDS ORDERED: HYDROcodone/APAP 5/325MG TABLET PO ONE (23:22)
[2020-02-02] MEDS: 0.9 % SODIUM CHLORIDE 250 ML IV SCH (23:37)
[2020-02-02] MEDS: NOREPINEPHRINE BITARTRATE 16 MG in 0.9 % SODIUM CHLORIDE 234 ML IV SCH (23:37)
[2020-02-03] MEDS ORDERED: morphine 30 MG TAB.SR.12H PO ONE (00:52)
[2020-02-03] MEDS: PIPERACILLIN SODIUM/TAZOBACTAM 3.375 GM in DEXTROSE 5% IN WATER 50 ML IV SCH ×5 (00:53→23:53)
[2020-02-03] MEDS: morphine 30 MG TAB.SR.12H PO SCH ×5 (00:55→21:42)
[2020-02-03] MEDS ORDERED: HYDROcodone/APAP 5/325MG TABLET PO ONE (04:14)
[2020-02-03 04:44] LABS: Mean Cell Volume 76.7 fL (80.0-100.0); Mean Corpuscular HGB Conc 31.3 g/dL (31.0-36.0); Mean Platelet Volume 10.4 fL (7.4-10.4); Platelet Count 327 K/mcL (140-440); RBC 4.17 M/mcL (4.63-6.08); Red Cell Distribution Width 16.9 % (11.5-14.5); WBC 7.9 K/mcL (4.50-11.00)
[2020-02-03 05:07] LABS: ALT/SGPT 19 U/l (0-40); AST/SGOT 18 U/l (0-37); Albumin 3.2 gm/dL (3.2-5.2); Albumin/Globulin Ratio 1.1 (1.0-2.3); Alkaline Phosphatase 67 U/L (39-117); Bilirubin,Direct 0.2 mg/dL (0.0-0.3); Bilirubin,Total 0.7 mg/dL (0.0-1.0); Blood Urea Nitrogen 14 mg/dl (8-23); Calcium 8.7 mg/dl (8.6-10.4); Carbon Dioxide 23 mmol/L (22-30); Chloride 99 mmol/L (96-108); Glomerular Filtration Rate 80; Glucose 155 mg/dL (70-105); Lactate Dehydrogenase 154 U/L (94-250); Phosphorous 3.3 mg/dL (2.7-4.5); Triglycerides 161 mg/dl (<150); Uric Acid 5.3 mg/dL (2.5-8.0)
[2020-02-03] MEDS: 0.9 % SODIUM CHLORIDE 10 ML SYRINGE IV SCH ×4 (05:11→21:43)
[2020-02-03 05:15] LABS: Anisocytosis 1+ (NONE SEEN); Hypochromasia 1+ (NONE SEEN); Lymphocytes % 30 % (15-49); Microcytosis 1+ (NONE SEEN); Monocytes % (Manual) 8 % (1-12); Platelet Estimate NORMAL (NORMAL); RBC Morphology ABNORM (NORMAL); Segmented Neutrophils % 62 % (38-78)
[2020-02-03] MEDS ORDERED: traMADol 50 MG TABLET PO PRN (06:47)
[2020-02-03] MEDS ORDERED: ONDANSETRON HCL 4 MG PO PRN (06:47)
[2020-02-03] MEDS ORDERED: HYDROcodone/APAP 5/325MG TABLET PO PRN (06:47)
[2020-02-03] MEDS: PANTOPRAZOLE 40 MG TABLET PO SCH ×2 (07:45→17:05)
[2020-02-03] MEDS: LEVOTHYROXINE 125 MCG TABLET PO SCH (07:45)
[2020-02-03] MEDS: FAMOTIDINE 20 MG TABLET PO SCH ×2 (07:48→21:43)
[2020-02-03] MEDS: TAMSULOSIN 0.4 MG CAPSULE PO SCH (07:48)
[2020-02-03] MEDS: HEPARIN 5,000 UNIT/ML VIAL SQ SCH ×2 (07:48→21:42)
[2020-02-03] MEDS: MULTIVIT,THER IRON,CA,FA & MIN 1 TABLET PO SCH (07:48)
[2020-02-03] MEDS: DOCUSATE SODIUM 100 MG CAPSULE PO SCH ×2 (07:49→21:43)
[2020-02-03] MEDS: predniSONE 5 MG TABLET PO SCH (07:49)
[2020-02-03] MEDS: POTASSIUM CHLORIDE 20 MEQ TABLET PO SCH ×2 (07:49→17:05)
[2020-02-03] MEDS: INSULIN GLARGINE, HUMAN 1 UNIT/0.01 ML SQ SCH (07:49)
[2020-02-03] MEDS: sitaGLIPtin 100 MG TABLET PO SCH (07:49)
[2020-02-03] MEDS: INSULIN LISPRO 1 UNIT/0.01 ML UNIT SQ SCH ×4 (07:49→21:42)
[2020-02-03] MEDS: MAGNESIUM SULFATE 2 GM/50 ML BAG IV PRN (08:09)
--- NOTE | 2020-02-03 08:26 | Internal Med Progress Note ---
Medical - PN: Subj Patient information: Note initiated : 02/03/20 at 8:22 am Service Date, if different from initiated Date: [] Patient: Álvaro Fernandez a 64 y/o M admitted on 02/02/20 for dizzy. Chief Complaint: [] Interval history: Mr. Fernandez is a 64 year old M with a complex past medical history of morbid obesity/CAD/PVD/right BKA/KARO on BiPAP/DM type II/recent hospitalization for GI bleed His baseline state of health until 2 days prior to presentation started noting increasing weakness/fatigue. This morning he started experiencing dizziness and lightheadedness and symptoms were similar to the prior episode of GI bleed. He felt lightheaded with low blood pressures. With increasing concerns he presents to the ER for initial work-up was consistent with blood pressures in 60s and severe sepsis with pyuria,, acute renal failure with creatinine 1.2, lactic acid 5.5. Patient was promptly started on antibiotics after blood cultures were drawn. Crystalloids were administered. Patient was started on vasopressors. Blood pressure improved slightly low 80s. Hospital service was consulted for emergent vascular access initiation and stabilization/admission for septic shock. At time evaluation patient is diaphoretic. Able to answer some of the questions. Systolics around 80s. Emergent central line access secured in association with anesthesia. Patient started on crystalloid/antibiotics and pressors. Patient will be transferred to ICU. Patient denies fever, diarrhea, bloody stool, chest pain, myalgias shaking chills. Denies sick contacts or recent changes in medications. 02/02-patient clinically improving. White count 7.9. Lactic acid downtrending from 5.5-2.7. Central venous oxygen sat 93%. Sodium improved to 135 creatinine down to 1. Improving hemodynamics. Continue broad antibiotic coverage. Weaning vasopressors as tolerated. Currently on 4 mics Levophed. - Constitutional Vitals: Vital Signs Temp Pulse Resp BP Pulse Ox 98.1 F 82 15 100/79 96 02/03/20 06:01 02/03/20 07:04 02/03/20 07:04 02/03/20 07:01 02/03/20 07:04 Period Temp Pulse Resp BP Sys/Orozco Pulse Ox Last 24 Hr 97.7 F-99.0 F 60-102 11-25 67-149/38-109 88-100 Intake and Output 02/02/20 02/03/20 02/03/20 21:59 05:59 13:59 Intake Total 2360 1438 36 Output Total 50 6 Balance 2310 1432 36 Weight 311 lb 11.2 oz Intake & Output: Intake & Output 02/02/20 02/03/20 02/03/20 21:59 05:59 13:59 Intake Total 2360 1438 36 Output Total 50 6 Balance 2310 1432 36 Weight 311 lb 11.2 oz Intake: IV 2360 1223 36 Sodium Chloride 0.9% 1,000 ml @ 1000 Wide Open IV BOLUS [facility] Rx#: [id number] Sodium Chloride 0.9% 250 ml @ 11 20 mls/hr IV .[id number] [facility] Rx#: [id number] Lactated Ringers 1,000 ml @ 2000 Wide Open IV BOLUS ONE Rx#: [id number] Levophed 16 mg In Sodium 7 36 Chloride 0.9% 234 ml @ 10 MCG/ MIN 9.375 mls/hr IV Q24H [facility] Rx #:[id number] Zosyn 3.375 gm In Dextrose 5% 50 50 in Water 50 ml @ 100 mls/hr IV Q6H [facility] Rx#:[id number] Vancomycin 1,000 mg In Sodium 250 Chloride 0.9% 250 ml @ 250 mls/ hr IV PREOP [facility] Rx#:[id number] Oral 215 Output: Void Amount 50 # of times incontinent of urine 6 Other: Urine Appearance Clear Clear Urine Color Pale Pale General appearance: no acute distress Exam: Morbidly obese Right BKA Nonlabored breathing No telemetry events Medical - PN: Obj Da - Labs CBC & Chem 7: 02/03/20 04:00 02/03/20 04:00 Labs: Abnormal Lab Results 02/03/20 02/03/20 02/03/20 04:00 04:00 00:10 RBC 4.17 L Hgb 10.0 L Hct 32.0 L MCV 76.7 L MCH 24.0 L MCHC RDW 16.9 H MPV RBC Morphology Abnorm A Hypochromasia 1+ A Anisocytosis 1+ A Microcytosis 1+ A ABG Methemoglobin VBG pH VBG pCO2 VBG pO2 VBG HCO3 VBG Total CO2 VBG O2 Saturation VBG Lactic Acid 2.7 H Carboxyhemoglobin Total Hemoglobin Sodium Chloride Carbon Dioxide Anion Gap Glucose 155 H Magnesium 1.1 L Triglycerides 161 H Urine Protein Urine Glucose (UA) Urine Ketones Ur Leukocyte Esterase Urine RBC Urine WBC Hyaline Casts Urine Mucus 02/02/20 02/02/20 02/02/20 20:30 17:57 16:10 RBC Hgb Hct MCV MCH MCHC RDW MPV RBC Morphology Hypochromasia Anisocytosis Microcytosis ABG Methemoglobin 0.3 L VBG pH 7.46 H VBG pCO2 33.3 L VBG pO2 120 H VBG HCO3 23.0 L VBG Total CO2 24.0 L VBG O2 Saturation 93.8 H VBG Lactic Acid 5.5 H* Carboxyhemoglobin 4.8 H Total Hemoglobin 9.7 L Sodium Chloride Carbon Dioxide Anion Gap Glucose Magnesium Triglycerides Urine Protein 100 A Urine Glucose (UA) 50 A Urine Ketones 5/tr A Ur Leukocyte Esterase 250 A Urine RBC 13 H Urine WBC > 182 H Hyaline Casts 22 H Urine Mucus Many A 02/02/20 02/02/20 16:10 16:10 RBC Hgb 11.1 L Hct 36.1 L MCV 77.0 L MCH 23.7 L MCHC 30.7 L RDW 17.2 H MPV 12.1 H RBC Morphology Hypochromasia Anisocytosis Microcytosis ABG Methemoglobin VBG pH VBG pCO2 VBG pO2 VBG HCO3 VBG Total CO2 VBG O2 Saturation VBG Lactic Acid Carboxyhemoglobin Total Hemoglobin Sodium 131 L Chloride 92 L Carbon Dioxide 19 L Anion Gap 20.0 H Glucose 214 H Magnesium Triglycerides Urine Protein Urine Glucose (UA) Urine Ketones Ur Leukocyte Esterase Urine RBC Urine WBC Hyaline Casts Urine Mucus Meds: Medications Acetaminophen (Tylenol) 650 mg PO Q4-6HP PRN; Protocol PRN Reason: Per Pain Protocol/Fever > 101 Hydrocodone Bitart/Acetaminophen ([place] 5/325mg) 1 tab PO Q4HP PRN; Protocol PRN Reason: Pain Bisacodyl (Dulcolax) 10 mg OR Q2-3DAYS PRN PRN Reason: Constipation Dextrose (Dextrose 50%) 0 ml IV UD PRN PRN Reason: Hypoglycemia Diagnostic Test (Pha) (Accu-Chek) 1 each FS ACHS [facility] Last Admin: 02/03/20 07:50 Dose: 1 each Documented by: Docusate Sodium (Colace) 100 mg PO BID [facility] Last Admin: 02/03/20 07:49 Dose: 100 mg Documented by: Famotidine (Pepcid) 20 mg PO BID [facility] Last Admin: 02/03/20 07:48 Dose: 20 mg Documented by: Gabapentin (Neurontin) 600 mg PO TID [facility] Glucose (Insta-Glucose) 15 gm PO PRN PRN PRN Reason: Hypoglycemia Heparin Sodium (Porcine) (Heparin) 5,000 unit SQ Q12 [facility] Last Admin: 02/03/20 07:48 Dose: 5,000 unit Documented by: Sodium Chloride (Sodium Chloride 0.9%) 1,000 mls @ 100 mls/hr IV .Q10H [facility] Last Admin: 02/02/20 22:13 Dose: 100 mls/hr Documented by: Acetaminophen (Ofirmev) 650 mg in 65 mls @ 130 mls/hr IV Q6HP PRN; Protocol PRN Reason: Per Pain Protocol/Fever > 101 Last Infusion: 02/03/20 01:59 Dose: Infused Documented by: Potassium Chloride 40 meq/ (Dextrose) 520 mls @ 130 mls/hr IV UD PRN PRN Reason: K+ = or < 3.5 Magnesium Sulfate (Magnesium Sulfate) 2 gm in 50 mls @ 50 mls/hr IV UD PRN PRN Reason: MG = or < 1.7 Last Admin: 02/03/20 08:09 Dose: 50 mls/hr Documented by: Piperacillin Sod/Tazobactam (Sod 3.375 gm/ Dextrose) 50 mls @ 100 mls/hr IV Q6H [facility]; Protocol Last Admin: 02/03/20 05:12 Dose: 100 mls/hr Documented by: Levofloxacin (Levaquin) 750 mg in 150 mls @ 100 mls/hr IV DAILY [facility]; Protocol Norepinephrine Bitartrate 16 (mg/ Sodium Chloride) 250 mls @ 9.375 mls/hr IV Q24H [facility]; Protocol Last Titration: 02/03/20 08:14 Dose: 4.27 mcg/min, 4 mls/hr Documented by: Sodium Chloride (Sodium Chloride 0.9%) 250 mls @ 20 mls/hr IV .[id number] [facility] Last Infusion: 02/03/20 00:30 Dose: 16 mls/hr Documented by: Insulin Glargine (Lantus) 25 unit SQ QAM [facility] Last Admin: 02/03/20 07:49 Dose: 25 units Documented by: Insulin Human Lispro (Humalog) 0 unit SQ [facility]; Protocol Last Admin: 02/03/20 07:49 Dose: 2 units Documented by: Iron Carb/Multivit/[place]/Folic Acid (Multivitamin W/Minerals) 1 tab PO DAILY [facility] Last Admin: 02/03/20 07:48 Dose: 1 tab Documented by: Levothyroxine Sodium (Synthroid) 250 mcg PO QAMAC [facility] Last Admin: 02/03/20 07:45 Dose: 250 mcg Documented by: Melatonin (Melatonin 3mg Tablet) 3 mg PO HSP PRN PRN Reason: Insomnia Morphine Sulfate (Ms Contin) 30 mg PO TID [facility]; Protocol Last Admin: 02/03/20 07:47 Dose: 30 mg Documented by: Non-Formulary Medication (Dulaglutide [Trulicity]) 0.75 mg SC WEEKLY [facility] Ondansetron HCl (Zofran Odt) 4 mg SL Q4-6HP PRN; Protocol PRN Reason: Nausea And Vomiting Ondansetron HCl (Zofran) 4 mg IV Q4-6HP PRN; Protocol PRN Reason: Nausea And Vomiting Pantoprazole Sodium (Protonix) 40 mg PO BIDAC [facility] Last Admin: 02/03/20 07:45 Dose: 40 mg Documented by: Polyethylene Glycol (Miralax) 17 gm PO DAILYP PRN PRN Reason: Constipation Potassium Chloride (Klor-Con) 40 meq PO DAILYP PRN PRN Reason: K+ < 3.5 Potassium Chloride (Kdur) 20 meq PO BIDCC [facility] Last Admin: 02/03/20 07:49 Dose: 20 meq Documented by: [facility] Admin: 02/03/20 07:49 Dose: 7.5 mg Documented by: Pregabalin (Lyrica) 25 mg PO TID [facility] Senna/Docusate Sodium (Senna Plus Tablet) 1 tab PO HS [facility] Last Admin: 02/02/20 22:33 Dose: 1 tab Documented by: Sitagliptin Phosphate (Januvia) 100 mg PO DAILY [facility] Last Admin: 02/03/20 07:49 Dose: 100 mg Documented by: Sodium Chloride (Saline Flush) 10 ml IV Q8 [facility] Last Admin: 02/03/20 05:11 Dose: 10 ml Documented by: Sodium Chloride (Saline Flush) 10 ml IV Q12 [facility] Sucralfate (Carafate) 1 gm PO Q6 [facility] Tamsulosin HCl (Flomax) 0.4 mg PO DAILY [facility] Last Admin: 02/03/20 07:48 Dose: 0.4 mg Documented by: Tramadol HCl (Ultram) 50 mg PO QIDP PRN PRN Reason: Pain - ABG Interpretation ABG results: 02/02/20 20:30 ABG Methemoglobin 0.3 L VBG pH 7.46 H VBG pCO2 33.3 L VBG pO2 120 H VBG HCO3 23.0 L VBG Total CO2 24.0 L VBG O2 Saturation 93.8 H VBG Base Excess -0.5 Medical - PN: A/P - Time Spent With Patient Total time spent is greater than 50% in coordination of care (as documented) at patient's floor/unit and/or counseling patient: 25 - 35 minutes (Critical care time) (1) Septic shock Status: Acute Assessment and plan: * Septic shock with multiorgan dysfunction. Clinically improving. Vasopressors being weaned. Currently at 4 mics Levophed. Lactic acid downtrending from 5.5 to normal. Improved central venous oxygen sats. Broad antibiotic coverage. * Complicated UTI-clinically improving on broad antibiotic coverage. CT abdomen no evidence of obstructive uropathy. * Acute renal failure-secondary to sepsis endorgan dysfunction-creatinine downtrending * Hypovolemic hyponatremia-improved to 135. Urine osmolarity consistent with appropriate ADH release. DC sodium checks. Urine and serum osmolality * Weakness deconditioning and debility continue PT OT. Tolerating therapies well. Anticipate SNF transfer. * Morbid obesity with obstructive sleep apnea, uses home BiPAP * DM type II on metformin/CC diet/basal prandial insulin/sitagliptin * Right BKA/diabetic neuropathy -continue PT OT/pain control on gabapentin * History of CMT with chronic pain stable on gabapentin/morphine/Lyrica * Hypothyroidism continue thyroxine * History of hypertension-held medications in light of septic shock * BPH on Flomax * Limited code * Prophylaxis Lovenox Plan * Wean vasopressors as tolerated * Continue broad antibiotic coverage * Monitor renal function * Discontinue sodium level checks * PT OT nutrition support * Discharge planning Current Visit: Yes Medical - PN: Qual - VTE Deep Vein Thrombosis/Pulmonary Embolism Present on Admission: No
--- NOTE | 2020-02-03 08:46 | XRay Report ---
CLINICAL INFORMATION: central line placement COMPARISON: 12/01/2019. FINDINGS: Right-sided central line tip overlies the SVC /azygous junction in satisfactory position. There is no pneumothorax or other complication. Heart size, mediastinum and pulmonary vessels are normal. There is minor left basilar atelectasis. No effusion. IMPRESSION: Right IJ central line in satisfactory position no competition line placement. No acute disease Interpreted and Authenticated by: Jl Lazo 02/03/20
[2020-02-03] MEDS ORDERED: INSULIN DETEMIR 25 UNIT SQ SCH (09:00)
[2020-02-03] MEDS ORDERED: GABAPENTIN 600 MG PO SCH (09:00)
[2020-02-03] MEDS ORDERED: PREGABALIN 25 MG CAPSULE PO SCH (09:00)
[2020-02-03] MEDS: GABAPENTIN 300 MG CAPSULE PO SCH ×3 (09:18→21:43)
[2020-02-03] MEDS: LEVOFLOXACIN 750 MG/150 ML BAG IV SCH (12:41)
[2020-02-03] MEDS: SUCRALFATE 1 GM TABLET PO SCH ×3 (12:44→23:58)
[2020-02-03] MEDS: 0.9 % SODIUM CHLORIDE 250 ML IV SCH ×2 (13:38→19:59)
[2020-02-03] MEDS: 0.9 % SODIUM CHLORIDE 1,000 ML IV SCH ×2 (15:24→23:28)
[2020-02-03] MEDS ORDERED: Dulaglutide [Trulicity] 0.75 MG/0.5 ML Pen SC SCH (15:30)
[2020-02-03] MEDS: NOREPINEPHRINE BITARTRATE 16 MG in 0.9 % SODIUM CHLORIDE 234 ML IV SCH (19:56)
[2020-02-03] MEDS: SENNOSIDES/DOCUSATE SODIUM 1 TAB TABLET PO SCH (21:53)
[2020-02-04] MEDS: 0.9 % SODIUM CHLORIDE 10 ML SYRINGE IV SCH ×3 (01:48→21:14)
[2020-02-04 05:18] LABS: Hematocrit 31.5 % (40.1-51.0); Hemoglobin 9.6 g/dL (13.7-17.5); Mean Cell Volume 78.4 fL (80.0-100.0); Mean Corpuscular HGB Conc 30.5 g/dL (31.0-36.0); Mean Platelet Volume 11.1 fL (7.4-10.4); Platelet Count 327 K/mcL (140-440); RBC 4.02 M/mcL (4.63-6.08); Red Cell Distribution Width 16.9 % (11.5-14.5); WBC 7.1 K/mcL (4.50-11.00)
[2020-02-04] MEDS: PIPERACILLIN SODIUM/TAZOBACTAM 3.375 GM in DEXTROSE 5% IN WATER 50 ML IV SCH ×4 (05:32→23:17)
[2020-02-04 05:33] LABS: ALT/SGPT 23 U/l (0-40); AST/SGOT 18 U/l (0-37); Albumin 3.3 gm/dL (3.2-5.2); Albumin/Globulin Ratio 1.3 (1.0-2.3); Alkaline Phosphatase 67 U/L (39-117); Bilirubin,Direct < 0.2 mg/dL (0.0-0.3); Bilirubin,Total 0.4 mg/dL (0.0-1.0); Blood Urea Nitrogen 6 mg/dl (8-23); Calcium 8.2 mg/dl (8.6-10.4); Carbon Dioxide 24 mmol/L (22-30); Chloride 103 mmol/L (96-108); Globulin 2.6 gm/dL (2.2-3.7); Glomerular Filtration Rate 91; Glucose 222 mg/dL (70-105); Lactate Dehydrogenase 151 U/L (94-250); Phosphorous 3.5 mg/dL (2.7-4.5); Triglycerides 147 mg/dl (<150)
[2020-02-04] MEDS: SUCRALFATE 1 GM TABLET PO SCH ×4 (05:33→23:19)
[2020-02-04 05:54] LABS: Anisocytosis 2+ (NONE SEEN); Eosinophils % (Manual) 2 % (0-7); Lymphocytes % 16 % (15-49); Microcytosis 1+ (NONE SEEN); Monocytes % (Manual) 3 % (1-12); Platelet Estimate NORMAL (NORMAL); RBC Morphology ABNORM (NORMAL); Segmented Neutrophils % 79 % (38-78)
[2020-02-04] MEDS: INSULIN LISPRO 1 UNIT/0.01 ML UNIT SQ SCH ×4 (07:45→21:11)
[2020-02-04] MEDS: INSULIN GLARGINE, HUMAN 1 UNIT/0.01 ML SQ SCH (07:45)
[2020-02-04] MEDS: DOCUSATE SODIUM 100 MG CAPSULE PO SCH ×2 (07:47→21:12)
[2020-02-04] MEDS: POTASSIUM CHLORIDE 20 MEQ TABLET PO SCH ×2 (07:47→17:05)
[2020-02-04] MEDS: HEPARIN 5,000 UNIT/ML VIAL SQ SCH ×2 (07:47→21:11)
[2020-02-04] MEDS: TAMSULOSIN 0.4 MG CAPSULE PO SCH (07:47)
[2020-02-04] MEDS: PANTOPRAZOLE 40 MG TABLET PO SCH ×2 (07:47→17:04)
[2020-02-04] MEDS: GABAPENTIN 300 MG CAPSULE PO SCH ×3 (07:47→21:12)
[2020-02-04] MEDS: predniSONE 5 MG TABLET PO SCH (07:47)
[2020-02-04] MEDS: LEVOTHYROXINE 125 MCG TABLET PO SCH (07:47)
[2020-02-04] MEDS: MULTIVIT,THER IRON,CA,FA & MIN 1 TABLET PO SCH (07:47)
[2020-02-04] MEDS: sitaGLIPtin 100 MG TABLET PO SCH (07:56)
[2020-02-04] MEDS: FAMOTIDINE 20 MG TABLET PO SCH ×2 (07:56→21:13)
[2020-02-04] MEDS: LEVOFLOXACIN 750 MG/150 ML BAG IV SCH (08:30)
[2020-02-04] MEDS: POLYETHYLENE GLYCOL 3350 17 GM PACKET PO PRN (08:30)
[2020-02-04] MEDS: morphine 30 MG TAB.SR.12H PO SCH ×3 (08:31→21:12)
[2020-02-04] MEDS: MAGNESIUM SULFATE 2 GM/50 ML BAG IV PRN (08:31)
[2020-02-04] MEDS: 0.9 % SODIUM CHLORIDE 250 ML IV SCH ×2 (09:35→14:22)
--- NOTE | 2020-02-04 09:59 | Internal Med Progress Note ---
Medical - PN: Subj Patient information: Note initiated : 02/04/20 at 9:56 am Service Date, if different from initiated Date: [] Patient: Álvaro Fernandez a 64 y/o M admitted on 02/02/20 for dizzy. Chief Complaint: [] Interval history: Mr. Fernandez is a 64 year old M with a complex past medical history of morbid obesity/CAD/PVD/right BKA/KARO on BiPAP/DM type II/recent hospitalization for GI bleed His baseline state of health until 2 days prior to presentation started noting increasing weakness/fatigue. This morning he started experiencing dizziness and lightheadedness and symptoms were similar to the prior episode of GI bleed. He felt lightheaded with low blood pressures. With increasing concerns he presents to the ER for initial work-up was consistent with blood pressures in 60s and severe sepsis with pyuria,, acute renal failure with creatinine 1.2, lactic acid 5.5. Patient was promptly started on antibiotics after blood cultures were drawn. Crystalloids were administered. Patient was started on vasopressors. Blood pressure improved slightly low 80s. Hospital service was consulted for emergent vascular access initiation and stabilization/admission for septic shock. At time evaluation patient is diaphoretic. Able to answer some of the questions. Systolics around 80s. Emergent central line access secured in association with anesthesia. Patient started on crystalloid/antibiotics and pressors. Patient will be transferred to ICU. Patient denies fever, diarrhea, bloody stool, chest pain, myalgias shaking chills. Denies sick contacts or recent changes in medications. 02/02-patient clinically improving. White count 7.9. Lactic acid downtrending from 5.5-2.7. Central venous oxygen sat 93%. Sodium improved to 135 creatinine down to 1. Improving hemodynamics. Continue broad antibiotic coverage. Weaning vasopressors as tolerated. Currently on 4 mics Levophed. 02/03-patient doing better since previous day. No overnight events except for persistent hypotension requiring Levophed.. No concerns per his staff. Denies fever chills nausea vomiting. White count 7.1 lactic acid normalized, sodium 139, creatinine 1.9, Proteus on urine culture. Sensitivities pending. On antibiotic coverage. - Constitutional Vitals: Vital Signs Temp Pulse Resp BP Pulse Ox 97.1 F 99 H 16 145/97 96 02/04/20 08:01 02/04/20 08:01 02/04/20 08:01 02/04/20 08:01 02/04/20 08:01 Period Temp Pulse Resp BP Sys/Orozco Pulse Ox Last 24 Hr 97.1 F-98.4 F 56-101 10-29 79-149/42-121 79-99 Intake and Output 02/03/20 02/04/20 02/04/20 21:59 05:59 13:59 Intake Total 171 1369 697 Output Total 251 5 Balance -80 1364 697 Weight 313 lb 14.4 oz Intake & Output: Intake & Output 02/03/20 02/04/20 02/04/20 21:59 05:59 13:59 Intake Total 171 1369 697 Output Total 251 5 Balance -80 1364 697 Weight 313 lb 14.4 oz Intake: IV 171 944 337 Sodium Chloride 0.9% 1,000 ml @ 805 100 mls/hr IV .Q10H [facility] Rx#: [id number] Sodium Chloride 0.9% 250 ml @ 0 250 20 mls/hr IV .[id number] [facility] Rx#: [id number] Levophed 16 mg In Sodium 21 39 37 Chloride 0.9% 234 ml @ 10 MCG/ MIN 9.375 mls/hr IV Q24H [facility] Rx #:[id number] Zosyn 3.375 gm In Dextrose 5% 100 in Water 50 ml @ 100 mls/hr IV Q6H [facility] Rx#:[id number] Oral 425 360 Output: Void Amount 250 # of times incontinent of urine 1 5 Other: Urine Appearance Clear Clear Clear Urine Color Pale Pale Pale Urine Odor Normal # Bowel Movements 0 General appearance: morbidly obese, no acute distress Exam: Alert oriented No anxiety Nondistended abdomen No telemetry events Medical - PN: Obj Da - Labs CBC & Chem 7: 02/04/20 04:20 02/04/20 04:20 Labs: Abnormal Lab Results 02/04/20 02/04/20 02/03/20 04:20 04:20 04:00 RBC 4.02 L Hgb 9.6 L Hct 31.5 L MCV 78.4 L MCH 23.9 L MCHC 30.5 L RDW 16.9 H MPV 11.1 H Seg Neutrophils % 79 H RBC Morphology Abnorm A Hypochromasia Anisocytosis 2+ A Microcytosis 1+ A ABG Methemoglobin VBG pH VBG pCO2 VBG pO2 VBG HCO3 VBG Total CO2 VBG O2 Saturation VBG Lactic Acid Carboxyhemoglobin Total Hemoglobin Sodium Chloride Carbon Dioxide Anion Gap BUN 6 L Glucose 222 H 155 H Calcium 8.2 L Magnesium 1.1 L Triglycerides 161 H Urine Protein Urine Glucose (UA) Urine Ketones Ur Leukocyte Esterase Urine RBC Urine WBC Hyaline Casts Urine Mucus 02/03/20 02/03/20 02/02/20 04:00 00:10 20:30 RBC 4.17 L Hgb 10.0 L Hct 32.0 L MCV 76.7 L MCH 24.0 L MCHC RDW 16.9 H MPV Seg Neutrophils % RBC Morphology Abnorm A Hypochromasia 1+ A Anisocytosis 1+ A Microcytosis 1+ A ABG Methemoglobin 0.3 L VBG pH 7.46 H VBG pCO2 33.3 L VBG pO2 120 H VBG HCO3 23.0 L VBG Total CO2 24.0 L VBG O2 Saturation 93.8 H VBG Lactic Acid 2.7 H Carboxyhemoglobin 4.8 H Total Hemoglobin 9.7 L Sodium Chloride Carbon Dioxide Anion Gap BUN Glucose Calcium Magnesium Triglycerides Urine Protein Urine Glucose (UA) Urine Ketones Ur Leukocyte Esterase Urine RBC Urine WBC Hyaline Casts Urine Mucus 02/02/20 02/02/20 02/02/20 17:57 16:10 16:10 RBC Hgb 11.1 L Hct 36.1 L MCV 77.0 L MCH 23.7 L MCHC 30.7 L RDW 17.2 H MPV 12.1 H Seg Neutrophils % RBC Morphology Hypochromasia Anisocytosis Microcytosis ABG Methemoglobin VBG pH VBG pCO2 VBG pO2 VBG HCO3 VBG Total CO2 VBG O2 Saturation VBG Lactic Acid 5.5 H* Carboxyhemoglobin Total Hemoglobin Sodium Chloride Carbon Dioxide Anion Gap BUN Glucose Calcium Magnesium Triglycerides Urine Protein 100 A Urine Glucose (UA) 50 A Urine Ketones 5/tr A Ur Leukocyte Esterase 250 A Urine RBC 13 H Urine WBC > 182 H Hyaline Casts 22 H Urine Mucus Many A 02/02/20 16:10 RBC Hgb Hct MCV MCH MCHC RDW MPV Seg Neutrophils % RBC Morphology Hypochromasia Anisocytosis Microcytosis ABG Methemoglobin VBG pH VBG pCO2 VBG pO2 VBG HCO3 VBG Total CO2 VBG O2 Saturation VBG Lactic Acid Carboxyhemoglobin Total Hemoglobin Sodium 131 L Chloride 92 L Carbon Dioxide 19 L Anion Gap 20.0 H BUN Glucose 214 H Calcium Magnesium Triglycerides Urine Protein Urine Glucose (UA) Urine Ketones Ur Leukocyte Esterase Urine RBC Urine WBC Hyaline Casts Urine Mucus Meds: Medications Acetaminophen (Tylenol) 650 mg PO Q4-6HP PRN; Protocol PRN Reason: Per Pain Protocol/Fever > 101 Hydrocodone Bitart/Acetaminophen ([place] 5/325mg) 1 tab PO Q4HP PRN; Protocol PRN Reason: Pain Bisacodyl (Dulcolax) 10 mg MN Q2-3DAYS PRN PRN Reason: Constipation Dextrose (Dextrose 50%) 0 ml IV UD PRN PRN Reason: Hypoglycemia Diagnostic Test (Pha) (Accu-Chek) 1 each FS ACHS [facility] Last Admin: 02/04/20 07:48 Dose: 1 each Documented by: Docusate Sodium (Colace) 100 mg PO BID [facility] Last Admin: 02/04/20 07:47 Dose: 100 mg Documented by: Famotidine (Pepcid) 20 mg PO BID [facility] Last Admin: 02/04/20 07:56 Dose: 20 mg Documented by: Gabapentin (Neurontin) 600 mg PO TID [facility] Last Admin: 02/04/20 07:47 Dose: 600 mg Documented by: Glucose (Insta-Glucose) 15 gm PO PRN PRN PRN Reason: Hypoglycemia Heparin Sodium (Porcine) (Heparin) 5,000 unit SQ Q12 [facility] Last Admin: 02/04/20 07:47 Dose: 5,000 unit Documented by: Sodium Chloride (Sodium Chloride 0.9%) 1,000 mls @ 100 mls/hr IV .Q10H [facility] Last Admin: 02/03/20 23:28 Dose: 100 mls/hr Documented by: Acetaminophen (Ofirmev) 650 mg in 65 mls @ 130 mls/hr IV Q6HP PRN; Protocol PRN Reason: Per Pain Protocol/Fever > 101 Last Infusion: 02/03/20 01:59 Dose: Infused Documented by: Potassium Chloride 40 meq/ (Dextrose) 520 mls @ 130 mls/hr IV UD PRN PRN Reason: K+ = or < 3.5 Magnesium Sulfate (Magnesium Sulfate) 2 gm in 50 mls @ 50 mls/hr IV UD PRN PRN Reason: MG = or < 1.7 Last Infusion: 02/04/20 09:36 Dose: Infused Documented by: Piperacillin Sod/Tazobactam (Sod 3.375 gm/ Dextrose) 50 mls @ 100 mls/hr IV Q6H [facility]; Protocol Last Admin: 02/04/20 05:32 Dose: 100 mls/hr Documented by: Levofloxacin (Levaquin) 750 mg in 150 mls @ 100 mls/hr IV DAILY [facility]; Protocol Last Admin: 02/04/20 08:30 Dose: 100 mls/hr Documented by: Norepinephrine Bitartrate 16 (mg/ Sodium Chloride) 250 mls @ 9.375 mls/hr IV Q24H [facility]; Protocol Last Titration: 02/04/20 08:09 Dose: 4 mcg/min, 3.75 mls/hr Documented by: Sodium Chloride (Sodium Chloride 0.9%) 250 mls @ 20 mls/hr IV .[id number] [facility] Last Admin: 02/04/20 09:35 Dose: 20 mls/hr Documented by: Insulin Glargine (Lantus) 25 unit SQ QAM [facility] Last Admin: 02/04/20 07:45 Dose: 25 units Documented by: Insulin Human Lispro (Humalog) 0 unit SQ [facility]; Protocol Last Admin: 02/04/20 07:45 Dose: 4 units Documented by: Iron Carb/Multivit/Coles/Folic Acid (Multivitamin W/Minerals) 1 tab PO DAILY [facility] Last Admin: 02/04/20 07:47 Dose: 1 tab Documented by: Levothyroxine Sodium (Synthroid) 250 mcg PO QAMAC [facility] Last Admin: 02/04/20 07:47 Dose: 250 mcg Documented by: Melatonin (Melatonin 3mg Tablet) 3 mg PO HSP PRN PRN Reason: Insomnia Morphine Sulfate (Ms Contin) 30 mg PO TID [facility]; Protocol Last Admin: 02/04/20 08:31 Dose: 30 mg Documented by: Ondansetron HCl (Zofran Odt) 4 mg SL Q4-6HP PRN; Protocol PRN Reason: Nausea And Vomiting Ondansetron HCl (Zofran) 4 mg IV Q4-6HP PRN; Protocol PRN Reason: Nausea And Vomiting Pantoprazole Sodium (Protonix) 40 mg PO BIDAC [facility] Last Admin: 02/04/20 07:47 Dose: 40 mg Documented by: Dulaglutide [ Trulicity] 0.75 Mg/0 .5 Ml Pen 1 dose SC Mart@0900 [facility] Last Admin: 02/03/20 16:45 Dose: Not Given Documented by: Polyethylene Glycol (Miralax) 17 gm PO DAILYP PRN PRN Reason: Constipation Potassium Chloride (Klor-Con) 40 meq PO DAILYP PRN PRN Reason: K+ < 3.5 Potassium Chloride (Kdur) 20 meq PO BIDCC [facility] Last Admin: 02/04/20 07:47 Dose: 20 meq Documented by: [facility]) [facility] Last Admin: 02/04/20 07:47 Dose: 7.5 mg Documented by: Senna/Docusate Sodium (Senna Plus Tablet) 1 tab PO HS [facility] Last Admin: 02/03/20 21:53 Dose: 1 tab Documented by: Sitagliptin Phosphate (Januvia) 100 mg PO DAILY [facility] Last Admin: 02/04/20 07:56 Dose: 100 mg Documented by: Sodium Chloride (Saline Flush) 10 ml IV Q12 [facility] Last Admin: 02/04/20 08:47 Dose: 10 ml Documented by: Sucralfate (Carafate) 1 gm PO Q6 [facility] Last Admin: 02/04/20 05:33 Dose: 1 gm Documented by: Tamsulosin HCl (Flomax) 0.4 mg PO DAILY [facility] Last Admin: 02/04/20 07:47 Dose: 0.4 mg Documented by: Tramadol HCl (Ultram) 50 mg PO QIDP PRN PRN Reason: Pain - ABG Interpretation ABG results: 02/02/20 20:30 ABG Methemoglobin 0.3 L VBG pH 7.46 H VBG pCO2 33.3 L VBG pO2 120 H VBG HCO3 23.0 L VBG Total CO2 24.0 L VBG O2 Saturation 93.8 H VBG Base Excess -0.5 Medical - PN: A/P - Time Spent With Patient Total time spent is greater than 50% in coordination of care (as documented) at patient's floor/unit and/or counseling patient: 25 - 35 minutes (Critical care time) (1) Septic shock Status: Acute Assessment and plan: * Septic shock with multiorgan dysfunction. Clinically improving and weaning vasopressors. Improved leukocytosis/white count and endorgan perfusion * Complicated Proteus [id number] based on sensitivities. * Acute renal failure-improving with management of septic shock * Hypovolemic hyponatremia-normalized to 139 * Weakness deconditioning and debility continue PT OT. Tolerating therapies well. Anticipate SNF transfer. * Morbid obesity with obstructive sleep apnea, CPAP * DM type II on metformin/CC diet/basal prandial insulin/sitagliptin * Right BKA/diabetic neuropathy -continue PT OT/pain control on gabapentin * History of CMT with chronic pain stable on gabapentin/morphine/Lyrica * Hypothyroidism continue thyroxine * History of hypertension-held medications in light of septic shock * BPH on Flomax * Limited code * Prophylaxis Lovenox Plan * Continue weaning vasopressors as tolerated * De-escalate antibiotics based on sensitivities * Monitor renal function * PT OT nutrition support * Diabetic diet * Discharge planning Current Visit: Yes Medical - PN: Qual - VTE Deep Vein Thrombosis/Pulmonary Embolism Present on Admission: No
[2020-02-04] MEDS: 0.9 % SODIUM CHLORIDE 1,000 ML IV SCH ×3 (12:33→22:45)
[2020-02-04] MEDS: SENNOSIDES/DOCUSATE SODIUM 1 TAB TABLET PO SCH (21:13)
[2020-02-05] MEDS: 0.9 % SODIUM CHLORIDE 250 ML IV SCH (04:07)
[2020-02-05] MEDS: NOREPINEPHRINE BITARTRATE 16 MG in 0.9 % SODIUM CHLORIDE 234 ML IV SCH (04:12)
[2020-02-05] MEDS: PIPERACILLIN SODIUM/TAZOBACTAM 3.375 GM in DEXTROSE 5% IN WATER 50 ML IV SCH ×4 (05:46→23:51)
[2020-02-05] MEDS: SUCRALFATE 1 GM TABLET PO SCH ×4 (05:46→23:51)
[2020-02-05 06:02] LABS: Hematocrit 30.3 % (40.1-51.0); Mean Cell Volume 79.1 fL (80.0-100.0); Mean Corpuscular HGB Conc 29.7 g/dL (31.0-36.0); Mean Platelet Volume 10.7 fL (7.4-10.4); Platelet Count 265 K/mcL (140-440); RBC 3.83 M/mcL (4.63-6.08); Red Cell Distribution Width 16.9 % (11.5-14.5); WBC 5.9 K/mcL (4.50-11.00)
[2020-02-05 06:25] LABS: ALT/SGPT 20 U/l (0-40); AST/SGOT 14 U/l (0-37); Albumin 3.2 gm/dL (3.2-5.2); Albumin/Globulin Ratio 1.1 (1.0-2.3); Alkaline Phosphatase 60 U/L (39-117); Bilirubin,Direct < 0.2 mg/dL (0.0-0.3); Bilirubin,Total 0.3 mg/dL (0.0-1.0); Blood Urea Nitrogen 6 mg/dl (8-23); Calcium 8.4 mg/dl (8.6-10.4); Carbon Dioxide 24 mmol/L (22-30); Chloride 106 mmol/L (96-108); Globulin 2.8 gm/dL (2.2-3.7); Glomerular Filtration Rate 91; Glucose 179 mg/dL (70-105); Lactate Dehydrogenase 134 U/L (94-250); Triglycerides 197 mg/dl (<150); Uric Acid 2.5 mg/dL (2.5-8.0)
[2020-02-05 06:41] LABS: Phosphorous 2.4 mg/dL (2.7-4.5)
[2020-02-05] MEDS: LEVOTHYROXINE 125 MCG TABLET PO SCH (06:55)
[2020-02-05] MEDS: PANTOPRAZOLE 40 MG TABLET PO SCH ×2 (06:56→17:09)
[2020-02-05 07:49] LABS: Anisocytosis 2+ (NONE SEEN); Eosinophils % (Manual) 3 % (0-7); Lymphocytes % 31 % (15-49); Microcytosis 1+ (NONE SEEN); Monocytes % (Manual) 4 % (1-12); Platelet Estimate NORMAL (NORMAL); RBC Morphology ABNORM (NORMAL); Segmented Neutrophils % 62 % (38-78)
[2020-02-05] MEDS: TAMSULOSIN 0.4 MG CAPSULE PO SCH (08:37)
[2020-02-05] MEDS: FAMOTIDINE 20 MG TABLET PO SCH ×2 (08:37→20:28)
[2020-02-05] MEDS: morphine 30 MG TAB.SR.12H PO SCH ×3 (08:37→20:27)
[2020-02-05] MEDS: predniSONE 5 MG TABLET PO SCH (08:37)
[2020-02-05] MEDS: sitaGLIPtin 100 MG TABLET PO SCH (08:37)
[2020-02-05] MEDS: MULTIVIT,THER IRON,CA,FA & MIN 1 TABLET PO SCH (08:38)
[2020-02-05] MEDS: GABAPENTIN 300 MG CAPSULE PO SCH ×3 (08:38→20:28)
[2020-02-05] MEDS: INSULIN LISPRO 1 UNIT/0.01 ML UNIT SQ SCH ×4 (08:38→20:27)
[2020-02-05] MEDS: INSULIN GLARGINE, HUMAN 1 UNIT/0.01 ML SQ SCH (08:38)
[2020-02-05] MEDS: POTASSIUM CHLORIDE 20 MEQ TABLET PO SCH ×2 (08:38→17:09)
[2020-02-05] MEDS: MAGNESIUM SULFATE 2 GM/50 ML BAG IV PRN (08:39)
[2020-02-05] MEDS: DOCUSATE SODIUM 100 MG CAPSULE PO SCH ×2 (08:39→20:28)
[2020-02-05] MEDS: LEVOFLOXACIN 750 MG/150 ML BAG IV SCH ×2 (08:39→09:22)
[2020-02-05] MEDS: HEPARIN 5,000 UNIT/ML VIAL SQ SCH ×2 (08:39→20:26)
[2020-02-05] MEDS: POLYETHYLENE GLYCOL 3350 17 GM PACKET PO PRN (08:59)
[2020-02-05] MEDS: 0.9 % SODIUM CHLORIDE 10 ML SYRINGE IV SCH (09:19)
[2020-02-05] MEDS ORDERED: NOREPINEPHRINE BITARTRATE 16 MG in 0.9 % SODIUM CHLORIDE 234 ML IV PRN (09:30)
--- NOTE | 2020-02-05 09:30 | Internal Med Progress Note ---
Medical - PN: Subj Patient information: Note initiated : 02/05/20 at 9:27 am Service Date, if different from initiated Date: [] Patient: Álvaro Fernandez a 64 y/o M admitted on 02/02/20 for dizzy. Chief Complaint: [] Interval history: Mr. Fernandez is a 64 year old M with a complex past medical history of morbid obesity/CAD/PVD/right BKA/KARO on BiPAP/DM type II/recent hospitalization for GI bleed His baseline state of health until 2 days prior to presentation started noting increasing weakness/fatigue. This morning he started experiencing dizziness and lightheadedness and symptoms were similar to the prior episode of GI bleed. He felt lightheaded with low blood pressures. With increasing concerns he presents to the ER for initial work-up was consistent with blood pressures in 60s and severe sepsis with pyuria,, acute renal failure with creatinine 1.2, lactic acid 5.5. Patient was promptly started on antibiotics after blood cultures were drawn. Crystalloids were administered. Patient was started on vasopressors. Blood pressure improved slightly low 80s. Hospital service was consulted for emergent vascular access initiation and stabilization/admission for septic shock. At time evaluation patient is diaphoretic. Able to answer some of the questions. Systolics around 80s. Emergent central line access secured in association with anesthesia. Patient started on crystalloid/antibiotics and pressors. Patient will be transferred to ICU. Patient denies fever, diarrhea, bloody stool, chest pain, myalgias shaking chills. Denies sick contacts or recent changes in medications. 02/02-patient clinically improving. White count 7.9. Lactic acid downtrending from 5.5-2.7. Central venous oxygen sat 93%. Sodium improved to 135 creatinine down to 1. Improving hemodynamics. Continue broad antibiotic coverage. Weaning vasopressors as tolerated. Currently on 4 mics Levophed. 02/03-patient doing better since previous day. No overnight events except for persistent hypotension requiring Levophed.. No concerns per his staff. Denies fever chills nausea vomiting. White count 7.1 lactic acid normalized, sodium 139, creatinine 1.9, Proteus on urine culture. Sensitivities pending. On antibiotic coverage. [id number] Proteus sensitive to Zosyn. Off pressors. Transfer to medical floor. Continue therapies/nutrition support. Possible discharge in 24 hours pending clinical improvement. Gradually restart home medications. - Constitutional Vitals: Vital Signs Temp Pulse Resp BP Pulse Ox 97.9 F 76 16 115/80 96 02/05/20 08:01 02/05/20 00:41 02/05/20 08:01 02/05/20 08:01 02/05/20 08:01 Period Temp Pulse Resp BP Sys/Orozco Pulse Ox Last 24 Hr 97.4 F-98.8 F 76-99 11-32 92-126/54-88 93-100 Intake and Output 02/04/20 02/05/20 02/05/20 21:59 05:59 13:59 Intake Total 1242 1150 1040 Output Total 5 3 0 Balance 1237 1147 1040 Weight 315 lb 11.2 oz Intake & Output: Intake & Output 02/04/20 02/05/20 02/05/20 21:59 05:59 13:59 Intake Total 1242 1150 1040 Output Total 5 3 0 Balance 1237 1147 1040 Weight 315 lb 11.2 oz Intake: IV 337 1050 1040 Sodium Chloride 0.9% 1,000 ml @ 1000 1000 100 mls/hr IV .Q10H [facility] Rx#: [id number] Sodium Chloride 0.9% 250 ml @ 131 20 mls/hr IV .[id number] [facility] Rx#: [id number] Levophed 16 mg In Sodium 6 Chloride 0.9% 234 ml @ 10 MCG/ MIN 9.375 mls/hr IV Q24H [facility] Rx #:[id number] Zosyn 3.375 gm In Dextrose 5% 50 50 40 in Water 50 ml @ 100 mls/hr IV Q6H [facility] Rx#:[id number] Oral 905 100 Output: # of times incontinent of urine 5 3 0 Other: Meal snack Percent of Meal Consumed 100% Urine Appearance Clear Clear Urine Color Pale Pale Urine Odor Normal # Voids 1 # Bowel Movements 0 0 General appearance: morbidly obese Exam: Alert oriented Nonlabored breathing No anxiety No telemetry events Right BKA Medical - PN: Obj Da - Labs CBC & Chem 7: 02/05/20 04:15 02/05/20 04:15 Labs: Abnormal Lab Results 02/05/20 02/05/20 02/04/20 04:15 04:15 04:20 RBC 3.83 L Hgb 9.0 L Hct 30.3 L MCV 79.1 L MCH 23.5 L MCHC 29.7 L RDW 16.9 H MPV 10.7 H Seg Neutrophils % RBC Morphology Abnorm A Hypochromasia Anisocytosis 2+ A Microcytosis 1+ A ABG Methemoglobin VBG pH VBG pCO2 VBG pO2 VBG HCO3 VBG Total CO2 VBG O2 Saturation VBG Lactic Acid Carboxyhemoglobin Total Hemoglobin Sodium Chloride Carbon Dioxide Anion Gap BUN 6 L 6 L Glucose 179 H 222 H Calcium 8.4 L 8.2 L Phosphorus 2.4 L Magnesium Triglycerides 197 H Urine Protein Urine Glucose (UA) Urine Ketones Ur Leukocyte Esterase Urine RBC Urine WBC Hyaline Casts Urine Mucus 02/04/20 02/03/20 02/03/20 04:20 04:00 04:00 RBC 4.02 L 4.17 L Hgb 9.6 L 10.0 L Hct 31.5 L 32.0 L MCV 78.4 L 76.7 L MCH 23.9 L 24.0 L MCHC 30.5 L RDW 16.9 H 16.9 H MPV 11.1 H Seg Neutrophils % 79 H RBC Morphology Abnorm A Abnorm A Hypochromasia 1+ A Anisocytosis 2+ A 1+ A Microcytosis 1+ A 1+ A ABG Methemoglobin VBG pH VBG pCO2 VBG pO2 VBG HCO3 VBG Total CO2 VBG O2 Saturation VBG Lactic Acid Carboxyhemoglobin Total Hemoglobin Sodium Chloride Carbon Dioxide Anion Gap BUN Glucose 155 H Calcium Phosphorus Magnesium 1.1 L Triglycerides 161 H Urine Protein Urine Glucose (UA) Urine Ketones Ur Leukocyte Esterase Urine RBC Urine WBC Hyaline Casts Urine Mucus 02/03/20 02/02/20 02/02/20 00:10 20:30 17:57 RBC Hgb Hct MCV MCH MCHC RDW MPV Seg Neutrophils % RBC Morphology Hypochromasia Anisocytosis Microcytosis ABG Methemoglobin 0.3 L VBG pH 7.46 H VBG pCO2 33.3 L VBG pO2 120 H VBG HCO3 23.0 L VBG Total CO2 24.0 L VBG O2 Saturation 93.8 H VBG Lactic Acid 2.7 H Carboxyhemoglobin 4.8 H Total Hemoglobin 9.7 L Sodium Chloride Carbon Dioxide Anion Gap BUN Glucose Calcium Phosphorus Magnesium Triglycerides Urine Protein 100 A Urine Glucose (UA) 50 A Urine Ketones 5/tr A Ur Leukocyte Esterase 250 A Urine RBC 13 H Urine WBC > 182 H Hyaline Casts 22 H Urine Mucus Many A 02/02/20 02/02/20 02/02/20 16:10 16:10 16:10 RBC Hgb 11.1 L Hct 36.1 L MCV 77.0 L MCH 23.7 L MCHC 30.7 L RDW 17.2 H MPV 12.1 H Seg Neutrophils % RBC Morphology Hypochromasia Anisocytosis Microcytosis ABG Methemoglobin VBG pH VBG pCO2 VBG pO2 VBG HCO3 VBG Total CO2 VBG O2 Saturation VBG Lactic Acid 5.5 H* Carboxyhemoglobin Total Hemoglobin Sodium 131 L Chloride 92 L Carbon Dioxide 19 L Anion Gap 20.0 H BUN Glucose 214 H Calcium Phosphorus Magnesium Triglycerides Urine Protein Urine Glucose (UA) Urine Ketones Ur Leukocyte Esterase Urine RBC Urine WBC Hyaline Casts Urine Mucus Meds: Medications Acetaminophen (Tylenol) 650 mg PO Q4-6HP PRN; Protocol PRN Reason: Per Pain Protocol/Fever > 101 Hydrocodone Bitart/Acetaminophen (Tillar 5/325mg) 1 tab PO Q4HP PRN; Protocol PRN Reason: Pain Last Admin: 02/05/20 08:36 Dose: 1 tab Documented by: Bisacodyl (Dulcolax) 10 mg DC Q2-3DAYS PRN PRN Reason: Constipation Dextrose (Dextrose 50%) 0 ml IV UD PRN PRN Reason: Hypoglycemia Diagnostic Test (Pha) (Accu-Chek) 1 each FS ACHS [facility] Last Admin: 02/05/20 08:36 Dose: 1 each Documented by: Docusate Sodium (Colace) 100 mg PO BID [facility] Last Admin: 02/05/20 08:39 Dose: Not Given Documented by: Famotidine (Pepcid) 20 mg PO BID [facility] Last Admin: 02/05/20 08:37 Dose: 20 mg Documented by: Gabapentin (Neurontin) 600 mg PO TID [facility] Last Admin: 02/05/20 08:38 Dose: 600 mg Documented by: Glucose (Insta-Glucose) 15 gm PO PRN PRN PRN Reason: Hypoglycemia Heparin Sodium (Porcine) (Heparin) 5,000 unit SQ Q12 [facility] Last Admin: 02/05/20 08:39 Dose: 5,000 unit Documented by: Sodium Chloride (Sodium Chloride 0.9%) 1,000 mls @ 100 mls/hr IV .Q10H [facility] Last Infusion: 02/05/20 09:18 Dose: Infused Documented by: Acetaminophen (Ofirmev) 650 mg in 65 mls @ 130 mls/hr IV Q6HP PRN; Protocol PRN Reason: Per Pain Protocol/Fever > 101 Last Infusion: 02/03/20 01:59 Dose: Infused Documented by: Potassium Chloride 40 meq/ (Dextrose) 520 mls @ 130 mls/hr IV UD PRN PRN Reason: K+ = or < 3.5 Magnesium Sulfate (Magnesium Sulfate) 2 gm in 50 mls @ 50 mls/hr IV UD PRN PRN Reason: MG = or < 1.7 Last Admin: 02/05/20 08:39 Dose: 25 mls/hr Documented by: Piperacillin Sod/Tazobactam (Sod 3.375 gm/ Dextrose) 50 mls @ 100 mls/hr IV Q6H [facility]; Protocol Last Infusion: 02/05/20 06:10 Dose: 0 mls/hr Documented by: Sodium Chloride (Sodium Chloride 0.9%) 250 mls @ 20 mls/hr IV .[id number] [facility] Last Admin: 02/05/20 04:07 Dose: Not Given Documented by: Norepinephrine Bitartrate 16 (mg/ Sodium Chloride) 250 mls @ 9.375 mls/hr IV Q24HP PRN; Protocol PRN Reason: Hypotension Insulin Glargine (Lantus) 25 unit SQ QAM [facility] Last Admin: 02/05/20 08:38 Dose: 25 units Documented by: Insulin Human Lispro (Humalog) 0 unit SQ ACHS [facility]; Protocol Last Admin: 02/05/20 08:38 Dose: 2 units Documented by: Iron Carb/Multivit/[place]/Folic Acid (Multivitamin W/Minerals) 1 tab PO DAILY [facility] Last Admin: 02/05/20 08:38 Dose: 1 tab Documented by: Levothyroxine Sodium (Synthroid) 250 mcg PO QAMAC [facility] Last Admin: 02/05/20 06:55 Dose: 250 mcg Documented by: Melatonin (Melatonin 3mg Tablet) 3 mg PO HSP PRN PRN Reason: Insomnia Morphine Sulfate (Ms Contin) 30 mg PO TID [facility]; Protocol Last Admin: 02/05/20 08:37 Dose: 30 mg Documented by: Ondansetron HCl (Zofran Odt) 4 mg SL Q4-6HP PRN; Protocol PRN Reason: Nausea And Vomiting Ondansetron HCl (Zofran) 4 mg IV Q4-6HP PRN; Protocol PRN Reason: Nausea And Vomiting Pantoprazole Sodium (Protonix) 40 mg PO BIDAC [facility] Last Admin: 02/05/20 06:56 Dose: 40 mg Documented by: Dulaglutide [ Trulicity] 0.75 Mg/0 .5 Ml Pen 1 dose SC Mart@0900 [facility] Last Admin: 02/03/20 16:45 Dose: Not Given Documented by: Polyethylene Glycol (Miralax) 17 gm PO DAILYP PRN PRN Reason: Constipation Last Admin: 02/05/20 08:59 Dose: 17 gm Documented by: Potassium Chloride (Klor-Con) 40 meq PO DAILYP PRN PRN Reason: K+ < 3.5 Potassium Chloride (Kdur) 20 meq PO BIDCC [facility] Last Admin: 02/05/20 08:38 Dose: 20 meq Documented by: Prednisone (Prednisone) 7.5 mg PO QAC [facility] Last Admin: 02/05/20 08:37 Dose: 7.5 mg Documented by: Senna/Docusate Sodium (Senna Plus Tablet) 1 tab PO HS [facility] Last Admin: 02/04/20 21:13 Dose: 1 tab Documented by: Sitagliptin Phosphate (Januvia) 100 mg PO DAILY [facility] Last Admin: 02/05/20 08:37 Dose: 100 mg Documented by: Sodium Chloride (Saline Flush) 10 ml IV Q12 [facility] Last Admin: 02/05/20 09:19 Dose: 10 ml Documented by: Sucralfate (Carafate) 1 gm PO Q6 [facility] Last Admin: 02/05/20 05:46 Dose: 1 gm Documented by: Tamsulosin HCl (Flomax) 0.4 mg PO DAILY [facility] Last Admin: 02/05/20 08:37 Dose: 0.4 mg Documented by: Tramadol HCl (Ultram) 50 mg PO QIDP PRN PRN Reason: Pain Last Admin: 02/05/20 08:57 Dose: 50 mg Documented by: - ABG Interpretation ABG results: 02/02/20 20:30 ABG Methemoglobin 0.3 L VBG pH 7.46 H VBG pCO2 33.3 L VBG pO2 120 H VBG HCO3 23.0 L VBG Total CO2 24.0 L VBG O2 Saturation 93.8 H VBG Base Excess -0.5 Medical - PN: A/P - Time Spent With Patient Total time spent is greater than 50% in coordination of care (as documented) at patient's floor/unit and/or counseling patient: 25 - 35 minutes (1) Septic shock Status: Acute Assessment and plan: * Septic shock with multiorgan dysfunction. Off pressors. clinically resolved. White count normalized. * Complicated multidrug-resistant Proteus UTI-continue Zosyn * Acute renal failure-resolved now creatinine at baseline * Hypovolemic hyponatremia-resolved * Weakness deconditioning and debility continue PT OT. Improving PT OT. * Morbid obesity with obstructive sleep apnea, CPAP * DM type II on metformin/CC diet/basal prandial insulin/sitagliptin * Right BKA/diabetic neuropathy -continue PT OT/pain control on gabapentin * History of CMT with chronic pain stable on gabapentin/morphine/Lyrica * Hypothyroidism continue thyroxine * History of hypertension-restart medications once systolic greater than 140 * BPH on Flomax * Limited code * Prophylaxis Lovenox Plan * Transition to MedSurg * Continue Zosyn based on sensitivities * PT OT nutrition support * Diabetic diet * Discharge planning per case management Current Visit: Yes Medical - PN: Qual - VTE Deep Vein Thrombosis/Pulmonary Embolism Present on Admission: No
[2020-02-05] MEDS ORDERED: traMADol 50 MG TABLET PO PRN (09:51)
[2020-02-05] MEDS ORDERED: POLYETHYLENE GLYCOL 3350 17 GM PACKET PO PRN (09:51)
[2020-02-05] MEDS ORDERED: ACETAMINOPHEN 650 MG/65 ML BOTTLE IV PRN (09:51)
[2020-02-05] MEDS ORDERED: MELATONIN 3 MG TABLET PO PRN (09:51)
[2020-02-05] MEDS ORDERED: BISACODYL 10 MG SUPP.RECT PR PRN (09:51)
[2020-02-05] MEDS ORDERED: POTASSIUM CHLORIDE 20 MEQ PACKET PO PRN (09:51)
[2020-02-05] MEDS ORDERED: MAGNESIUM SULFATE 2 GM/50 ML BAG IV PRN (09:51)
[2020-02-05] MEDS ORDERED: ACETAMINOPHEN 325 MG TABLET PO PRN (09:51)
[2020-02-05] MEDS ORDERED: POTASSIUM CHLORIDE 40 MEQ in DEXTROSE 5% IN WATER 500 ML IV PRN (09:51)
[2020-02-05] MEDS ORDERED: DEXTROSE 50% 50 ML VIAL IV PRN (09:51)
[2020-02-05] MEDS ORDERED: ONDANSETRON 4 MG ODT TABLET SL PRN (09:51)
[2020-02-05] MEDS ORDERED: HYDROcodone/APAP 5/325MG TABLET PO PRN (09:51)
[2020-02-05] MEDS ORDERED: DEXTROSE 31 GM ORAL.SUSP PO PRN (09:51)
[2020-02-05] MEDS ORDERED: ONDANSETRON 4 MG/2 ML VIAL IV PRN (09:51)
[2020-02-05] MEDS: 0.9 % SODIUM CHLORIDE 1,000 ML IV SCH (10:51)
[2020-02-05] MEDS ORDERED: SENNOSIDES/DOCUSATE SODIUM 1 TAB TABLET PO SCH (21:00)
[2020-02-05] MEDS ORDERED: 0.9 % SODIUM CHLORIDE 10 ML SYRINGE IV SCH (21:00)
[2020-02-06] MEDS: SUCRALFATE 1 GM TABLET PO SCH ×2 (05:14→11:55)
[2020-02-06] MEDS: PIPERACILLIN SODIUM/TAZOBACTAM 3.375 GM in DEXTROSE 5% IN WATER 50 ML IV SCH (05:14)
[2020-02-06 06:08] LABS: Hemoglobin 9.5 g/dL (13.7-17.5); Mean Cell Volume 78.6 fL (80.0-100.0); Mean Corpuscular HGB Conc 29.7 g/dL (31.0-36.0); Mean Platelet Volume 10.5 fL (7.4-10.4); Platelet Count 300 K/mcL (140-440); RBC 4.07 M/mcL (4.63-6.08); Red Cell Distribution Width 16.7 % (11.5-14.5)
[2020-02-06 06:27] LABS: ALT/SGPT 21 U/l (0-40); AST/SGOT 17 U/l (0-37); Albumin 3.4 gm/dL (3.2-5.2); Albumin/Globulin Ratio 1.1 (1.0-2.3); Alkaline Phosphatase 62 U/L (39-117); Bilirubin,Direct < 0.2 mg/dL (0.0-0.3); Bilirubin,Total 0.3 mg/dL (0.0-1.0); Calcium 8.8 mg/dl (8.6-10.4); Carbon Dioxide 25 mmol/L (22-30); Chloride 102 mmol/L (96-108); Globulin 3.1 gm/dL (2.2-3.7); Glomerular Filtration Rate 91; Glucose 173 mg/dL (70-105); Lactate Dehydrogenase 160 U/L (94-250); Phosphorous 2.6 mg/dL (2.7-4.5); Triglycerides 200 mg/dl (<150); Uric Acid 2.6 mg/dL (2.5-8.0)
[2020-02-06 06:29] LABS: Blood Urea Nitrogen 9 mg/dl (8-23)
[2020-02-06] MEDS ORDERED: LEVOTHYROXINE 125 MCG TABLET PO SCH (07:30)
[2020-02-06 07:38] LABS: Anisocytosis 1+ (NONE SEEN); Eosinophils % (Manual) 6 % (0-7); Lymphocytes % 25 % (15-49); Monocytes % (Manual) 7 % (1-12); Platelet Estimate NORMAL (NORMAL); RBC Morphology ABNORM (NORMAL); Segmented Neutrophils % 62 % (38-78)
[2020-02-06] MEDS: INSULIN LISPRO 1 UNIT/0.01 ML UNIT SQ SCH ×2 (07:45→11:47)
[2020-02-06] MEDS: PANTOPRAZOLE 40 MG TABLET PO SCH (07:55)
[2020-02-06] MEDS: POTASSIUM CHLORIDE 20 MEQ TABLET PO SCH (07:55)
[2020-02-06] MEDS ORDERED: predniSONE 5 MG TABLET PO SCH (08:00)
[2020-02-06] MEDS: GABAPENTIN 300 MG CAPSULE PO SCH (08:11)
[2020-02-06] MEDS: HEPARIN 5,000 UNIT/ML VIAL SQ SCH (08:11)
[2020-02-06] MEDS: FAMOTIDINE 20 MG TABLET PO SCH (08:12)
[2020-02-06] MEDS: morphine 30 MG TAB.SR.12H PO SCH (08:12)
[2020-02-06] MEDS: DOCUSATE SODIUM 100 MG CAPSULE PO SCH (08:12)
[2020-02-06] MEDS ORDERED: sitaGLIPtin 100 MG TABLET PO SCH (09:00)
[2020-02-06] MEDS ORDERED: INSULIN GLARGINE, HUMAN 1 UNIT/0.01 ML SQ SCH (09:00)
[2020-02-06] MEDS ORDERED: TAMSULOSIN 0.4 MG CAPSULE PO SCH (09:00)
[2020-02-06] MEDS ORDERED: MULTIVIT,THER IRON,CA,FA & MIN 1 TABLET PO SCH (09:00)
--- NOTE | 2020-02-06 09:12 | Discharge Summary ---
Medical - DS: Prov Patient information: Note initiated : 02/06/20 at 9:10 am Service Date, if different from initiated Date: [] Patient: Álvaro Fernandez 64 y/o M admitted on 02/02/20 for dizzy. Chief Complaint: [] Date of admission: 02/02/20 21:19 Discharge date: 02/06/20 Primary care physician: JABIER Egan Consults: 02/03/20 09:10 Consult to Physician [CONS] Routine Comment: Consulting Provider: John Peace Reason For Exam: Physician to Consult Medical - DS: Meds - Discharge Medications Prescriptions: Cefuroxime [Ceftin] 500 mg PO Q12 #14 tab Transmission Status: Pending to [facility] Active and Home Medications: Home Medications Dulaglutide [Trulicity] 0.75 mg SC WEEKLY 12/01/19 [History Confirmed 02/02/20 Last Taken 01/26/20 09:00 0.75] Famotidine [Pepcid] 20 mg PO BID 12/01/19 [History Confirmed 02/02/20 Last Taken 12/12/19 20 mg] Gabapentin [Gralise] 600 mg PO TID 12/01/19 [History Confirmed 02/02/20 Last Taken 12/12/19 600 mg] HYDROcodone/APAP 5/325MG [[place] 5-325Mg] 1 tab PO Q4HP PRN 12/01/19 [History Confirmed 02/02/20 Last Taken 12/11/19 1 Tablet] Insulin Detemir [Levemir] 25 unit SQ QAM 12/01/19 [History Confirmed 02/02/20 Last Taken 12/12/19 25 units] Levothyroxine [Synthroid] 250 mcg PO DAILY 12/01/19 [History Confirmed 02/02/20 Last Taken 12/12/19 250 mcg] Miconazole 0.5 tube TOPICAL DAILY PRN 12/01/19 [History Confirmed 02/02/20 Last Taken 12/08/19 1 Application] Ondansetron HCl [Zofran] 4 mg PO TID PRN 12/01/19 [History Confirmed 02/02/20 Last Taken 12/09/19 4 mg] Potassium Chloride [Kdur] 20 meq PO BIDCC 12/01/19 [History Confirmed 02/02/20 Last Taken 12/12/19 20 mEq] Tamsulosin [Flomax] 1 cap PO DAILY 12/01/19 [History Confirmed 02/02/20 Last Taken 12/11/19 0.4 mg] metFORMIN [Glucophage] 1,000 mg PO BIDCC 12/01/19 [History Confirmed 02/02/20 Last Taken 12/12/19 250 mg] Pregabalin [Lyrica] 25 mg PO TID #15 cap 12/06/19 [Rx Confirmed 02/02/20 Last Taken 12/12/19 25 mg] morphine SULFATE [Morphine Sulfate ER] 30 mg PO TID #15 tablet.er 12/06/19 [Rx Confirmed 02/02/20 Last Taken 12/12/19 30 mg] traMADol [Ultram] 50 mg PO QIDP PRN #15 tab 12/06/19 [Rx Confirmed 02/02/20 Last Taken 12/09/19 50 mg] Carafate 1 gm PO Q6H 02/02/20 [History Confirmed 02/02/20 Last Taken Unknown] Lisinopril [Zestril] 5 mg PO DAILY 02/02/20 [History Confirmed 02/02/20 Last Taken Unknown] Pantoprazole [Protonix] 40 mg PO BID 02/02/20 [History Confirmed 02/02/20 Last Taken Unknown] prednisoLONE 7.5 mg PO DAILY 02/02/20 [History Confirmed 02/02/20 Last Taken Unknown] Cefuroxime [Ceftin] 500 mg PO Q12 #14 tab 02/06/20 [Rx Last Taken Unknown] Medical - DS: Hosp Hospital Course: Discharge diagnosis * Septic shock with multiorgan dysfunction. Clinically resolved and now off pressors. Discharging home with additional 7 days oral cefuroxime * Complicated multidrug-resistant Proteus UTI- transition to oral cefuroxime based on culture sensitivities * Acute renal failure-resolved * Hypovolemic hyponatremia-resolved * Weakness deconditioning and debility continue PT OT. Much improved with therapies * Morbid obesity with obstructive sleep apnea, CPAP * DM type II on metformin/CC diet/basal prandial insulin/sitagliptin * Right BKA/diabetic neuropathy -continue PT OT/pain control on gabapentin * History of CMT with chronic pain stable on gabapentin/morphine/Lyrica * Hypothyroidism continue thyroxine * History of hypertension-continue home medications * BPH on Flomax Brief hospital course Mr. Fernandez is a 64 year old M with a complex past medical history of morbid obesity/CAD/PVD/right BKA/KARO on BiPAP/DM type II/recent hospitalization for GI bleed His baseline state of health until 2 days prior to presentation started noting increasing weakness/fatigue. This morning he started experiencing dizziness and lightheadedness and symptoms were similar to the prior episode of GI bleed. He felt lightheaded with low blood pressures. With increasing concerns he presents to the ER for initial work-up was consistent with blood pressures in 60s and severe sepsis with pyuria,, acute renal failure with creatinine 1.2, lactic acid 5.5. Patient was promptly started on antibiotics after blood cultures were drawn. Crystalloids were administered. Patient was started on vasopressors. Blood pressure improved slightly low 80s. Hospital service was consulted for emergent vascular access initiation and stabilization/admission for septic shock. At time evaluation patient is diaphoretic. Able to answer some of the questions. Systolics around 80s. Emergent central line access secured in association with anesthesia. Patient started on crystalloid/antibiotics and pressors. Patient will be transferred to ICU. Patient denies fever, diarrhea, bloody stool, chest pain, myalgias shaking chills. Denies sick contacts or recent changes in medications. 02/02-patient clinically improving. White count 7.9. Lactic acid downtrending from 5.5-2.7. Central venous oxygen sat 93%. Sodium improved to 135 creatinine down to 1. Improving hemodynamics. Continue broad antibiotic coverage. Weaning vasopressors as tolerated. Currently on 4 mics Levophed. 02/03-patient doing better since previous day. No overnight events except for persistent hypotension requiring Levophed.. No concerns per his staff. Denies fever chills nausea vomiting. White count 7.1 lactic acid normalized, sodium 139, creatinine 1.9, Proteus on urine culture. Sensitivities pending. On antibiotic coverage. [id number] Proteus sensitive to Zosyn. Off pressors. Transfer to medical floor. Continue therapies/nutrition support. Possible discharge in 24 hours pending clinical improvement. Gradually restart home medications. 02/05-patient doing well. No overnight events. No concerns per staff. No fever chills nausea vomiting. Physical therapy tolerating diet. Denies flank pain or dysuria. Feels at baseline. Discharging home with advised to continue antibiotic for additional 7 days oral cefuroxime based on culture sensitivity. Discharge diagnosis: . - Time Spent with Patient Total time spent providing and/or coordinating discharge services: Greater than 30 minutes Medical - DS: Exam - Constitutional Vitals: Vital Signs Temp Pulse Pulse Resp BP BP BP 02/06/20 07:24 69 02/06/20 07:21 98.2 F 69 16 97/64 02/06/20 02:50 98.7 F 79 14 105/67 02/05/20 22:59 98.8 F 74 18 109/62 02/05/20 19:54 97.6 F 69 16 116/74 02/05/20 18:58 02/05/20 16:00 97 F 20 117/78 02/05/20 12:00 97.5 F 13 116/70 Pulse Ox 02/06/20 07:24 02/06/20 07:21 100 02/06/20 02:50 97 02/05/20 22:59 97 02/05/20 19:54 97 02/05/20 18:58 94 02/05/20 16:00 94 02/05/20 12:00 97 Intake and Output 02/05/20 02/06/20 02/06/20 21:59 05:59 13:59 Intake Total 950 710 530 Output Total 3 4 Balance 947 706 530 Intake: IV 50 50 50 Zosyn 3.375 gm In Dextrose 5% 50 50 50 in Water 50 ml @ 100 mls/hr IV Q6H [facility] Rx#:[id number] Oral 900 660 480 Output: # of times incontinent of urine 3 4 Other: Meal Egg salad Breakfast Percent of Meal Consumed 100% 100% Feeding Ability Assist with Tray Set Up Independent # Voids 1 Weight 313 lb 11.2 oz Medical - DS: Data Labs on day of discharge: Labs from last 24 hours 02/06/20 02/06/20 04:53 04:53 WBC 8.0 RBC 4.07 L Hgb 9.5 L Hct 32.0 L MCV 78.6 L MCH 23.3 L MCHC 29.7 L RDW 16.7 H Plt Count 300 MPV 10.5 H Total Counted 100 Seg Neutrophils % 62 Band Neutrophils % Not Reportable Lymphocytes % 25 Monocytes % (Manual) 7 Eosinophils % (Manual) 6 Platelet Estimate Normal RBC Morphology Abnorm A Anisocytosis 1+ A Sodium 138 Potassium 4.2 Chloride 102 Carbon Dioxide 25 Anion Gap 11.0 BUN 9 Creatinine 0.9 GFR Calculation 91 Glucose 173 H Uric Acid 2.6 Calcium 8.8 Phosphorus 2.6 L Magnesium 1.8 Total Bilirubin 0.3 Direct Bilirubin < 0.2 GGT 23 AST 17 ALT 21 Alkaline Phosphatase 62 Lactate Dehydrogenase 160 Total Protein 6.5 Albumin 3.4 Globulin 3.1 Albumin/Globulin Ratio 1.1 Triglycerides 200 H Preliminary micro results at discharge 02/02/20 20:30 Blood Culture - Preliminary Blood 02/02/20 19:40 Blood Culture - Preliminary Blood Medical - DS: A/P - Patient/Caregiver Discharge Instructions Activity: increase activity as tolerated Diet: Consistent Carbohydrate Additional Instructions: Follow-up PCP in 5 days I recommend primary care physician to check CBC BMP UA as a posthospital follow- up in 1 week. Antibiotics for additional 7 days oral cefuroxime 500 twice daily Continue aggressive bowel regimen to prevent constipation Continue fall precautions Continue weight loss interventions All meals on chair sitting upright at 90 degrees to prevent aspiration Return to ER if worsening fever chills shortness of breath, diarrhea, bleeding Review risk and side effect profile of medications including antibiotics. Side effect may include mild to severe reaction including rash, diarrhea, cdiff and even which can be prevented by close follow-up with PCP and monitoring for side effects Continue diet and activity as advised Discussed importance of medication adherence Please review medication list with patient prior to discharge Please schedule follow-up with PCP/Providers prior to discharge and provide printouts Prescriptions: Cefuroxime [Ceftin] 500 mg PO Q12 #14 tab Transmission Status: Pending to [facility] - Problem Maintenance (1) Septic shock Status: Acute - Follow up Plan Follow up with: Srinivasa Wagner ARNP [Primary Care Provider] - 02/21/20 12:00 pm Disposition: Home, Self-Care Care Plan Goals: This discharge packet is provided to you to help keep you informed about your care. We want to ensure you get everything you need when you go home. You will also be receiving a call from us in a few days to follow up with you and see how you are doing since your discharge. This gives us a chance to listen to any concerns you maybe experiencing since you were discharged or any additional needs you may have, as well as providing us feedback on your care experience. We strive to always provide excellent care and thank you for your feedback and for choosing [facility]. Prognosis: Fair Rehab Potential: Fair I certify that the patient requires SNF services: No Overall status at discharge: patient is progressing back to baseline Medical - DS: Qual - VTE Deep Vein Thrombosis/Pulmonary Embolism Present on Admission: No
[2020-02-09] MEDS ORDERED: Dulaglutide [Trulicity] 0.75 MG/0.5 ML Pen SC SCH (09:00)
== END 2020-02-06 13:12 | disposition home or self-care (01) | DRG 871 ==
LOC: ED 15:53 → ICU 21:19 → MEDSUR 02-05 19:58
PROVIDERS: ADMIT Internal Medicine; ATTEND Internal Medicine